=== PATIENT | female | born 1940 | race Caucasian/White ===

== ENCOUNTER 2017-01-05 16:44 | Inpatient (IN) | payer MEDICARE ==
[~2017-01-05 16:44] MED LIST: AMLO5TAB2 PO; ERYTOIN10 EACH EYE; GABA300C5 PO; SIMV40TA PO; TERI14TA PO; XARE15TA PO
[2017-01-05 20:00] VITALS: BP 146/76; PULSE 81; RESP 16; TEMP 97.5; O2SAT 97
[2017-01-05] MEDS ORDERED: DIMETHICONE/OXYBENZONE/PADMIATE LIP BALM 4.25 GM TOPICAL PRN (21:00)
[2017-01-05] MEDS ORDERED: NALOXONE HCL 0.4 MG/ML AMP IV PUSH PRN (21:00)
[2017-01-05] MEDS ORDERED: ACETAMIN 325 MG/BUTALBITAL 50 MG/CAFFEINE 40 MG TAB PO PRN (21:00)
[2017-01-05] MEDS ORDERED: ONDANSETRON HCL 4 MG/2 ML VIAL IV PUSH PRN (21:00)
[2017-01-05] MEDS ORDERED: SODIUM CHLORIDE 0.9% FLUSH 10 ML FLUSH IV FLUSH PRN (21:00)
[2017-01-05] MEDS ORDERED: MAGNESIUM HYDROXIDE SUSP 30 ML CUP PO PRN (21:00)
[2017-01-05] MEDS ORDERED: PILL SPLITTER OTHER PRN (21:45)
[2017-01-05] MEDS: SODIUM CHLOR 0.9% 1000 ML INJ 1,000 ML IV SCH (22:41)
[2017-01-05] MEDS: metroNIDAZOLE 500 MG INJ 100 ML IV SCH (22:42)
[2017-01-05] MEDS: FAMOTIDINE 20 MG TAB PO SCH (22:54)
[2017-01-05] MEDS: SODIUM CHLORIDE 0.9% FLUSH 10 ML FLUSH IV FLUSH SCH (22:54)
[2017-01-05] MEDS: methylPREDNISolone SO SUCC INJ 250 MG in DEXTROSE 5% IN WATER 100ML INJ 100 ML IV SCH ×2 (23:47)
[2017-01-06] VITALS (10 sets, daily range): BP systolic 141–157; BP diastolic 66–79; PULSE 81–94; RESP 16–18; TEMP 97.1–98.5; O2SAT 91–95
[2017-01-06] MEDS: ACETAMINOPHEN/HYDROcodone 325 MG/5 MG TAB PO PRN ×3 (03:30→22:13)
[2017-01-06] MEDS: methylPREDNISolone SO SUCC INJ 250 MG in DEXTROSE 5% IN WATER 100ML INJ 100 ML IV SCH ×6 (05:23→18:04)
[2017-01-06] MEDS: metroNIDAZOLE 500 MG INJ 100 ML IV SCH ×3 (06:29→22:12)
[2017-01-06] MEDS ORDERED: RIVAROXABAN 15 MG TAB PO SCH (09:00)
[2017-01-06] MEDS: FAMOTIDINE 20 MG TAB PO SCH ×2 (09:39→22:14)
[2017-01-06] MEDS: ASPIRIN 81 MG CHEW TAB CHEW SCH (09:39)
[2017-01-06] MEDS: FLUCONAZOLE 100 MG TAB PO SCH (09:40)
[2017-01-06] MEDS: SODIUM CHLORIDE 0.9% FLUSH 10 ML FLUSH IV FLUSH SCH (09:40)
[2017-01-06] MEDS: SODIUM CHLOR 0.9% 1000 ML INJ 1,000 ML IV SCH ×2 (10:00→12:15)
--- NOTE | 2017-01-06 10:05 | HHI.PR ---
Review/Management Diagnosis prvious left SQL ARCHITECT and MCA and right mca cva. Now with what is a new right posterior parietal-occipital cva Multiple sclerosis Plan close neurochecks in hospital b/o recent recurrent cva. continue solumedrol for MS recheck echocardiogram to r/o embolic source. Diagnosis/Plan: Subjective Subjective Comments Pt now transferred to medical floor due to recent CT showing an additional cva in the right posterior parieto-occitpital area. Had prior cva in left SQL ARCHITECT distribution and left parietal as well as a small infarct right parietal. Had a sudden change in MS on Saturday and follow up CT done yesterday of brain indicated a new infarct in right posterior parieto-occipital area. SHe also has MS and is now on iv solumedrol for possible MS exacerbation as well, as her has been reporting progressive decline in strength and mobility over the past month or so.ALso continues on xarelto. ASA was added Saturday for new CVA. Active Medications Current Medications Medications (Trade) Dose Ordered Sig/Marilin Route Start Time Stop Time Status Last Admin (NS Flush) 2 ml UNSCH PRN IV FLUSH 01/05/17 21:00 (NS Flush) 2 ml BID IV FLUSH 01/05/17 21:00 01/06/17 09:40 (Narcan Inj) 0.4 mg UNSCH PRN IV PUSH 01/05/17 21:00 Levofloxacin/ Dextrose 150 ml @ 100 mls/hr Q24H IV 01/06/17 15:00 Sodium Chloride 1,000 ml @ 100 mls/hr Q10H IV 01/05/17 21:00 01/05/17 22:41 Metronidazole 100 ml @ 100 mls/hr Q8H IV 01/05/17 22:00 01/06/17 06:29 (Odd 5-325 Mg) 1 tab Q6H PRN PO 01/05/17 21:00 01/06/17 09:56 Methylprednisolone Sodium Succinate 250 mg/Dextrose 100 ml @ 104 mls/hr Q6HR IV 01/05/17 23:00 01/06/17 05:23 (Milk Of Magnesia Liq) 30 ml DAILY PRN PO 01/05/17 21:00 (Diflucan) 150 mg DAILY PO 01/06/17 09:00 01/06/17 09:40 (Fioricet 325-50-40) 1 tab Q8H PRN PO 01/05/17 21:00 (Blistex Lip [place]) 1 applic UNSCH PRN TOPICAL 01/05/17 21:00 (Xarelto) 15 mg DAILY PO 01/06/17 09:00 01/06/17 09:40 (Aspirin Chew) 81 mg DAILY CHEW 01/06/17 09:00 01/06/17 09:39 (Pepcid) 20 mg BID PO 01/05/17 21:00 01/06/17 09:39 (Zofran Inj) 4 mg Q6HR PRN IV PUSH 01/05/17 21:00 (Pill Splitter) 1 ea UNSCH PRN OTHER 01/05/17 21:45 (Flu (Quadrivalent) Vaccine Inj) 0.5 ml ONCE ONCE IM 01/07/17 10:00 01/07/17 10:01 Allergies Allergies Coded Allergies Sulfa (Sulfonamide Antibiotics) (Verified Allergy, Intermediate, 12/28/16) Penicillins (Verified Allergy, Unknown, 12/28/16) Exam I&O / VS 01/06/17 01/06/17 01/07/17 15:00 23:00 07:00 Intake Total 100 ml Balance 100 ml Intake IV Total 100 ml Vital Signs Date Time Temp Pulse Resp B/P (MAP) Pulse Ox O2 Delivery O2 Flow Rate FiO2 01/06/17 08:48 97.1 84 16 145/73 (97) 94 01/06/17 05:00 98.5 82 18 141/66 (91) 95 01/06/17 00:16 98.0 89 18 143/79 (100) 95 01/06/17 00:14 98.0 89 18 143/79 (100) 95 01/05/17 20:00 97.5 81 16 146/76 (99) 97 Respiratory: Lungs CTA, Non-labored respirations Cardiology: Normal rate, Regular Rhythm Musculoskeletal: ROM, Swelling Exam Comments More alert today, follows commands. PERRL EOM intact Right umn cn 7 palsey 3/5 RUE. 4/5 Philip Fagan PhD Jan 06, 2017 10:05
[2017-01-06] MEDS ORDERED: GLUCAGON 1 MG/ML VIAL OTHER PRN (10:15)
[2017-01-06] MEDS ORDERED: SODIUM CHLORIDE 0.9% FLUSH 5 ML FLUSH IV FLUSH PRN (10:15)
[2017-01-06] MEDS ORDERED: DEXTROSE 50% IN WATER 50 ML VIAL(D50) IV PUSH PRN (10:15)
[2017-01-06] MEDS ORDERED: BISACODYL 10 MG SUPP RECTAL PRN (12:00)
[2017-01-06] MEDS: INSULIN ASPART SUPPLEMENTAL SCALE SQ SCH ×3 (12:00→21:00)
--- NOTE | 2017-01-06 16:04 | HHI.HP ---
HPI Service [facility] Primary Care Physician Unknown Admission Diagnosis Diagnoses: Chief Complaint: altered mental status Travel History International Travel<30 Days: No Contact w/Intl Traveler <30 Da: No Traveled to Known Affected Are: No History of Present Illness This is a 76-year-old female with past medical history of multiple sclerosis, hyperlipidemia, DVT and PE on Xarelto, CVA. The patient has expressive aphasia as a result of her CVA so most of the history is obtained from medical records and with help of the family which is at bedside. As per medical records the patient has had multiple sclerosis diagnosed in 2013 and has been followed by Dr. Kaitlin Fountain, history of bilateral lower extremity DVT and PE in September 2016 with workup at the floor the hospital in normal speech and placed on Xarelto long- term. Patient is very lethargic and the history is obtained from previous medical records. The patient was admitted for the hospital in [place] on 12/21/16 with sudden onset of slurred speech and right-sided facial droop. A CT of the head was unremarkable, the patient was not given TPA because she was outside of the window. The patient was evaluated by neurology, Dr. Philip Fountain. MRI was obtained and it showed a 3 cm triangular area of abnormal signal and restricted flow involving the left temporal lobe, sylvian fissure into the basal ganglia consistent with acute infarct of the left MCA distribution. Also noted were multiple punctate foci of restricted flow within the left parietal, left occipital cortex and left frontal lobe suggesting a small acute infarcts. Additional studies at the time included a CT of the head and neck and TTE which were negative for embolic source. There is also reported one episode of lethargy with repeat CT brain showing evolution of the left MCA territory ischemia/infarction without hemorrhagic conversion. The patient was then started on physical and occupational therapy as well as speech therapy and was noted to have right hemiparesis and expressive aphasia with dysarthria and dysphagia. As per RN the patient had a stroke alert while in rehabilitation at the time was evaluated by neurologist and an MRI was obtained which showed bilateral acute to subacute infarcts with the largest being in the left posterior parietal/occipital region. No evidence of hemorrhage. The patient was noted yesterday to be more lethargic when a couple days back as per reported when necessary she was more interactive with staff. Family states that the patient was very confused as she could not say her name. As per medical staff at [facility] the patient had been moaning and groaning all night. An abdominal x-ray was obtained secondary to abdominal pain and it showed barium identified within a diverticuli which could be secondary to diverticulitis. As a result of the patient being lethargic head CT was ordered which showed a new acute to subacute right posterior parietal/ occipital mild convexity infarct, reported new since 01/03/17. It showed evolving infarct involving the medial left occipital mild complexities, left mid parietal high convexities and mid right parietal high convexities. No hemorrhage, hydrocephalus or herniation were observed. Review of Systems Limited and unable to be obtained since due to patient's expressive aphasia and inability to answer questions correctly. Past Family Social History Past Medical History 1. Multiple sclerosis on Aubagio. 2. 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 3. Hyperlipidemia. Past Surgical History History of traumatic laceration of of the nose 3 years with plastic surgery. Reported Medications Reported Meds & Active Scripts Active Reported Aubagio (Teriflunomide) 14 Mg Tab 14 Mg PO DAILY Xarelto (Rivaroxaban) 15 Mg Tab 15 Mg PO DAILY Allergies: Coded Allergies: Sulfa (Sulfonamide Antibiotics) (Verified Allergy, Intermediate, 12/28/16) hives Penicillins (Verified Allergy, Unknown, 12/28/16) childhood reaction unknown Active Ordered Medications Current Medications Medications (Trade) Dose Ordered Sig/Marilin Route Start Time Stop Time Status Last Admin (Narcan Inj) 0.4 mg UNSCH PRN IV PUSH 01/05/17 21:00 Levofloxacin/ Dextrose 150 ml @ 100 mls/hr Q24H IV 01/06/17 15:00 01/06/17 16:23 Metronidazole 100 ml @ 100 mls/hr Q8H IV 01/05/17 22:00 01/06/17 14:37 Methylprednisolone Sodium Succinate 250 mg/Dextrose 100 ml @ 104 mls/hr Q6HR IV 01/05/17 23:00 01/06/17 18:04 (Milk Of Magnesia Liq) 30 ml DAILY PRN PO 01/05/17 21:00 (Diflucan) 150 mg DAILY PO 01/06/17 09:00 01/06/17 09:40 (Fioricet 325-50-40) 1 tab Q8H PRN PO 01/05/17 21:00 (Blistex Lip [place]) 1 applic UNSCH PRN TOPICAL 01/05/17 21:00 (Xarelto) 15 mg DAILY PO 01/06/17 09:00 01/06/17 09:40 (Aspirin Chew) 81 mg DAILY CHEW 01/06/17 09:00 01/06/17 09:39 (Pepcid) 20 mg BID PO 01/05/17 21:00 01/06/17 09:39 (Zofran Inj) 4 mg Q6HR PRN IV PUSH 01/05/17 21:00 (Pill Splitter) 1 ea UNSCH PRN OTHER 01/05/17 21:45 (Flu (Quadrivalent) Vaccine Inj) 0.5 ml ONCE ONCE IM 01/07/17 10:00 01/07/17 10:01 (NS Flush) 2 ml BID IV FLUSH 01/06/17 21:00 (NS Flush) 2 ml UNSCH PRN IV FLUSH 01/06/17 10:15 Sodium Chloride 1,000 ml @ 70 mls/hr [id number] IV 01/06/17 10:00 (NovoLOG SUPPLEMENTAL SCALE) 1 ACHS SQ 01/06/17 12:00 01/06/17 18:16 (D50w (Vial) Inj) 50 ml UNSCH PRN IV PUSH 01/06/17 10:15 (Glucagon Inj) 1 mg UNSCH PRN OTHER 01/06/17 10:15 (Dulcolax Supp) 10 mg DAILY PRN RECTAL 01/06/17 12:00 ([place] 5-325 Mg) 1 tab Q4H PRN PO 01/06/17 17:30 Family History Mother at age 45 from colon cancer. Patient sister has multiple sclerosis as well. Social History The patient currently does not smoke, however she did and quit in 1971. The patient drinks alcohol occasionally. No illicit drug use reported by or son. The patient is , lives with her and 2 children. Physical Exam Vital Signs Vital Signs Date Time Temp Pulse Resp B/P (MAP) Pulse Ox O2 Delivery O2 Flow Rate FiO2 01/06/17 12:14 98.3 83 16 143/74 (97) 95 01/06/17 11:00 18 01/06/17 10:30 94 1.00 01/06/17 08:48 97.1 84 16 145/73 (97) 94 01/06/17 05:00 98.5 82 18 141/66 (91) 95 01/06/17 00:16 98.0 89 18 143/79 (100) 95 01/06/17 00:14 98.0 89 18 143/79 (100) 95 01/05/17 20:00 97.5 81 16 146/76 (99) 97 Physical Exam GENERAL: This is a well-nourished, well-developed patient, in no apparent distress. SKIN: No rashes, ecchymoses or lesions. Cool and dry. HEAD: Atraumatic. Normocephalic. No temporal or scalp tenderness. EYES: Pupils equal round and reactive. Extraocular motions intact. No scleral icterus. No injection or drainage. ENT: Nose without bleeding, purulent drainage or septal hematoma. Throat without erythema, tonsillar hypertrophy or exudate. Uvula midline. Airway patent. NECK: Trachea midline. No JVD or lymphadenopathy. Supple, nontender, no meningeal signs. CARDIOVASCULAR: Regular rate and rhythm without murmurs, gallops, or rubs. RESPIRATORY: Clear to auscultation. Breath sounds equal bilaterally. No wheezes , rales, or rhonchi. GASTROINTESTINAL: Abdomen soft, non-tender, nondistended. No hepato-splenomegaly , or palpable masses. No guarding. MUSCULOSKELETAL: Extremities without clubbing, cyanosis, or edema. No joint tenderness, effusion, or edema noted. No calf tenderness. Negative Homans sign bilaterally. NEUROLOGICAL: Awake and alert. Cranial nerves II through XII intact. Motor and sensory grossly within normal limits. Five out of 5 muscle strength in all muscle groups. Normal speech. Laboratory Laboratory Tests Test 01/06/17 12:[address] reviewed by me obtained on 01/05/17 showed acute to subacute right posterior parietal/occipital mid convexity infarct, new since 01/03/17 exam. It will be infarct involving the medial left occipital convexities, left mid parietal convexities, and right parietal high convexities. No hemorrhage, hydrocephalus or herniation was observed or described. 2. Abdomen and pelvic CT showed sigmoid and scattered colonic diverticulosis without definite evidence for diverticulitis. 6 mm nonobstructive calcified calculus in the left renal collecting system. No evidence for obstructive uropathy at this time. Minimal by basilar atelectasis. 3. Findings consistent with pneumonia or aspiration involving the left upper lobe and superior segment of the left lower lobe with nearly masslike focal airspace consolidation in the left lower lobe containing air bronchograms to take 42.1 cm. Caprini VTE Risk Assessment Caprini VTE Risk Assessment: Mod/High Risk (score >= 2) Caprini Risk Assessment Model Point Value = 1 Point Value = 2 Point Value = 3 Point Value = 5 Age 41-60 Minor surgery BMI > 25 kg/m2 Swollen legs Varicose veins or History of unexplained or recurrent spontaneous Oral contraceptives or hormone replacement Sepsis (< 1 month) Serious lung disease, including pneumonia (< 1 month) Abnormal pulmonary function Acute myocardial infarction Congestive heart failure (< 1 month) History of inflammatory bowel disease Medical patient at bed rest Age 61-74 Arthroscopic surgery Major open surgery (> 45 min) Laparoscopic surgery (> 45 min) Malignancy Confined to bed (> 72 hours) Immobilizing plaster cast Central venous access Age >= 75 History of VTE Family history of VTE Factor V Leiden Prothrombin [id number] Lupus anticoagulant Anticardiolipin antibodies Elevated serum homocysteine Heparin-induced thrombocytopenia Other congenital or acquired thrombophilia Stroke (< 1 month) Elective arthroplasty Hip, pelvis, or leg fracture Acute spinal cord injury (< 1 month) Prophylaxis Regimen Total Risk Factor Score Risk Level Prophylaxis Regimen 0-1 Low Early ambulation 2 Moderate Order ONE of the following: *Sequential Compression Device (SCD) *Heparin 5000 units SQ BID 3-4 Higher Order ONE of the following medications: *Heparin 5000 units SQ TID *Enoxaparin/Lovenox 40 mg SQ daily (WT < 150 kg, CrCl > 30 mL/min) *Enoxaparin/Lovenox 30 mg SQ daily (WT < 150 kg, CrCl > 10-29 mL/min) *Enoxaparin/Lovenox 30 mg SQ BID (WT < 150 kg, CrCl > 30 mL/min) AND/OR *Sequential Compression Device (SCD) 5 or more Highest Order ONE of the following medications: *Heparin 5000 units SQ TID (Preferred with Epidurals) *Enoxaparin/Lovenox 40 mg SQ daily (WT < 150 kg, CrCl > 30 mL/min) *Enoxaparin/Lovenox 30 mg SQ daily (WT < 150 kg, CrCl > 10-29 mL/min) *Enoxaparin/Lovenox 30 mg SQ BID (WT < 150 kg, CrCl > 30 mL/min) AND *Sequential Compression Device (SCD) Assessment and Plan Problem List: (1) Encephalopathy acute ICD Code: G93.40 - Encephalopathy, unspecified Plan: Encephalopathy likely multifactorial secondary to new CVA as mentioned above in CT scan and secondary to UTI and aspiration pneumonia. CT of the head showed new left posterior CVA. Neurology consulted on following patient. Patient currently on aspirin and on Xarelto. I will hold Xarelto and place the patient on IV heparin drip given that the patient has hematuria. (2) CVA (cerebral vascular accident) ICD Code: I63.9 - Cerebral infarction, unspecified Plan: As above I will order a brain MRI and a CTA of the neck. Given that the patient has had a repeat stroke on anticoagulation I will consult hematology. I will also check for sedimentation rate, CRP, JAMAIR and ANCA to rule out vasculitis. (3) Pneumonia ICD Code: J18.9 - Pneumonia, unspecified organism Plan: Give the chest as mentioned above shows a right upper lobe infiltrate and superior segment of the left lower lobe with nearly masslike focal airspace consolidation in the left lower lobe containing air bronchograms measuring 2.4 2.1 cm. I will consult pulmonary for further recommendations. (4) Hx pulmonary embolism ICD Code: Z86.711 - Personal history of pulmonary embolism Status: Chronic Plan: Patient has history of bilateral lower extremity DVT and PE on Xarelto. (5) UTI (urinary tract infection) ICD Code: N39.0 - Urinary tract infection, site not specified Plan: Continue IV Levaquin. Patient now has hematuria. I will consult urology. Monitor hemoglobin if it drops then heparin will need to be placed on hold. Urine cultures growing gram-negative rods. HEENT IV Levaquin. (6) Expressive aphasia ICD Code: R47.01 - Aphasia Status: Acute Plan: Speech therapy consultation. (7) Dysphagia ICD Code: R13.10 - Dysphagia, unspecified Status: Acute Plan: Speech therapy recommended a pured diet with nectar consistency thickened liquids. (8) Multiple sclerosis ICD Code: G35 - Multiple sclerosis Status: Chronic Plan: Currently being treated with Solu-Medrol 250 mg IV every 6 hours. (9) HTN (hypertension) ICD Code: I10 - Essential (primary) hypertension Plan: Permissive hypertension for now. Hold antihypertensive medications. The patient previously on amlodipine. (10) Hyperglycemia ICD Code: R73.9 - Hyperglycemia, unspecified Plan: Likely steroid-induced. I will place the patient and SSI with insulin NovoLog and monitor Accu-Cheks. (11) Hematuria ICD Code: R31.9 - Hematuria, unspecified Plan: I will discontinue Xarelto and start the patient on IV heparin drip without bolus. Monitor hemoglobin every 6 hours and if it drops then consideration of discontinuation of heparin drip should be discussed. I discussed this in detail with the family since stopping anticoagulation could but the patient [place] records for further CVAs. (12) Elevated troponin ICD Code: R74.8 - Abnormal levels of other serum enzymes Plan: Patient's troponin is elevated 0.06, 0.07, I will check an EKG and consult cardiology. Echocardiogram pending. Assessment and Plan And Sherita famotidine for GI prophylaxis. Physician Certification 2 Midnight Certification Type: Admission for Inpatient Services Order for Inpatient Services The services are ordered in accordance with Medicare regulations or non- Medicare payer requirements, as applicable. In the case of services not specified as inpatient-only, they are appropriately provided as inpatient services in accordance with the 2-midnight benchmark. Estimated LOS (days): 2 days is the estimated time the patient will need to remain in the hospital, assuming treatment plan goals are met and no additional complications. Post-Hospital Plan: Inpatient Rehab Problem Qualifiers (1) CVA (cerebral vascular accident): Qualified Codes: I63.9 - Cerebral infarction, unspecified (2) HTN (hypertension): Qualified Codes: I10 - Essential (primary) hypertension Shon Bernal MD Jan 06, 2017 16:04
[2017-01-06] MEDS: LEVOFLOXACIN 750 MG PREMIX INJ 150 ML IV SCH (16:23)
[2017-01-06] MEDS ORDERED: IOHEXOL 350 MG/ML 10 ML VIAL (for RAD DIAG) IVCONTRAST ONE (19:17)
--- NOTE | 2017-01-06 19:37 | RADRPT ---
EXAM DATE/TIME: 01/06/2017 18:49 [facility] COMPARISON: CT BRAIN W/O CONTRAST, January 05, 2017, 13:43. INDICATIONS : CVA. MEDICAL HISTORY : Stroke Multiple sclerosis. SURGICAL HISTORY : Rhinoplasty. ENCOUNTER: Initial ACUITY: 1 day PAIN SCORE: 0/10 LOCATION: cranial TECHNIQUE: Multiplanar, multisequence MRI of the brain was performed without contrast. FINDINGS: SUPRATENTORIAL: Multifocal acute and subacute infarcts are present. The infarct with the greatest degree of restrict ed diffusion is located in the watershed zone right MCA/CARE ASSOCIATE. Other areas of intermediate restricted diffusion involves the left occipital lobe extending into the watershed zone and along the tentorium, left parietal lobe supra sylvian, and right posterior insula. On the T1 sagittal images, there is a thin ribbon T1 shortening in the cortex of the left parieto-occipital and left suprasylvian infarcts suggesting some subacute blood products.. The ventricles were normal in size. No extra-axial fluid or blood. POSTERIOR FOSSA: The cerebellum and brainstem are intact. The 4th ventricle is midline. The cerebellopontine angle is unremarkable. The cerebellar tonsils are normal in position.. EXTRACRANIAL: The visualized portions of the orbits and paranasal sinuses are unremarkable. CONCLUSION: 1. Acute nonhemorrhagic infarction in the right MCA CARE ASSOCIATE watershed zone. 2. Subacute infarctions with possible subacute blood products in the left occipital and left suprasyl vian parietal region. 3. Subacute infarction in the right posterior insula without evidence of blood products. David Jordan MD on January 06, 2017 at 19:23 Board Certified Radiologist. This report was verified electronically.
--- NOTE | 2017-01-06 20:08 | RADRPT ---
EXAM DATE/TIME: 01/06/2017 19:10 [facility] COMPARISON: No previous studies available for comparison. INDICATIONS : CVA. Evaluate for embolism. IV CONTRAST: 66 cc Omnipaque 350 (iohexol) IV RADIATION DOSE: 26.58 CTDIvol (mGy) MEDICAL HISTORY : Pulmonary embolism. CVA. SURGICAL HISTORY : Rhinoplasty ENCOUNTER: Initial ACUITY: 1 day PAIN SCALE: 0/10 LOCATION: neck Elevated flow velocities and ICA/CCA ratios have been found to correlate with increased degrees of vessel stenosis, calculated as percentage of diameter relative to a normal segment of distal ICA/CCA. TECHNIQUE: Volumetric scanning was performed using a multirow detector CT scanner. The data was post processed with a variety of visualization algorithms including full-volume maximum intensity projection, multip lanar sliding thin-slab reformation, curved-planar reformation, and surface-rendering techniques. Us ing automated exposure control and adjustment of the mA and/or kV according to patient size, radiatio n dose was kept as low as reasonably achievable to obtain optimal diagnostic quality images. DICOM f ormat image data is available electronically for review and comparison. FINDINGS: AORTIC ARCH: There is a three-vessel origin of the great vessels from the aorta. No evidence of ostial narrowing. RIGHT CAROTID: The common carotid artery is intact. The carotid bulb has a normal configuration without ulceration o r narrowing. The internal carotid artery lumen is smooth without stenosis. The external carotid octavio ry is intact. LEFT CAROTID: The common carotid artery is intact. The carotid bulb has a normal configuration without ulceration or narrowing. The internal carotid artery lumen is smooth without stenosis. The external carotid ar eliza is intact. VERTEBRALS: The vertebral arteries have a symmetric diameter. No stenotic lesions are seen. CONCLUSION: Normal CTA carotids. David Jordan MD on January 06, 2017 at 20:04 Board Certified Radiologist. This report was verified electronically.
[2017-01-06] MEDS ORDERED: HEPARIN-D5W 25,000 U/250 ML 250 ML IV PRN (21:00)
[2017-01-06] MEDS: SODIUM CHLORIDE 0.9% FLUSH 5 ML FLUSH IV FLUSH SCH (21:00)
[2017-01-06 21:48] LABS: AUTOMATED NEUTROPHIL # 11.3 TH/MM3 (1.8-7.7); BASOPHIL % 0.1 % (0.0-2.0); HEMO FLAGS DIFF FINAL; LYMPH % 2.5 % (9.0-44.0); LYMPHOCYTE # 0.3 TH/MM3 (1.0-4.8); MEAN CELL VOLUME 92.8 FL (80.0-100.0); MEAN CORPUSCULAR HEMOGLOBIN 30.8 PG (27.0-34.0); MEAN CORPUSCULAR HGB CONC 33.2 % (32.0-36.0); NEUT % 93.4 % (16.0-70.0); PLATELET COUNT 214 TH/MM3 (150-450); RED BLOOD COUNT 3.66 MIL/MM3 (4.00-5.30); RED CELL DISTRIBUTION WIDTH 14.5 % (11.6-17.2); WHITE BLOOD COUNT 12.1 TH/MM3 (4.0-11.0)
[2017-01-06 21:58] LABS: ANION GAP 9 MEQ/L (5-15); AST (GOT) 52 U/L (15-37); BICARBONATE 24.2 MEQ/L (21.0-32.0); BLOOD UREA NITROGEN 32 MG/DL (7-18); CHLORIDE 110 MEQ/L (98-107); GLOMERULAR FILTRATION RATE 129 ML/MIN (>89); MAGNESIUM 2.2 MG/DL (1.5-2.5); SODIUM (NA) 143 MEQ/L (136-145)
[2017-01-06 21:59] LABS: ALT (GPT) 45 U/L (10-53); APTT (PATIENT) 27.6 SEC (24.3-30.1); INTERNATIONAL NORMALIZED RATIO 2.4 RATIO; PROTHROMBIN TIME - PATIENT 27.5 SEC (9.8-11.6)
[2017-01-06 22:01] LABS: ALKALINE PHOSPHATASE 125 U/L (45-117); TOTAL BILIRUBIN ADULT 0.7 MG/DL (0.2-1.0)
[2017-01-06 22:10] LABS: WESTERGREN SEDIMENTATION RATE 5 mm/hr (0-30)
[2017-01-07] VITALS (10 sets, daily range): BP systolic 147–171; BP diastolic 71–96; PULSE 81–99; RESP 16–18; TEMP 97.2–97.8; O2SAT 89–95
[2017-01-07] MEDS: methylPREDNISolone SO SUCC INJ 250 MG in DEXTROSE 5% IN WATER 100ML INJ 100 ML IV SCH ×10 (00:39→23:22)
[2017-01-07] MEDS: SODIUM CHLOR 0.9% 1000 ML INJ 1,000 ML IV SCH ×2 (00:40→13:12)
[2017-01-07 04:35] LABS: HDL CHOLESTEROL 61.8 MG/DL (40.0-60.0)
[2017-01-07 04:46] LABS: APTT (PATIENT) 27.4 SEC (24.3-30.1)
[2017-01-07] MEDS: metroNIDAZOLE 500 MG INJ 100 ML IV SCH ×3 (05:12→21:39)
[2017-01-07] MEDS: INSULIN ASPART SUPPLEMENTAL SCALE SQ SCH ×4 (08:00→21:00)
[2017-01-07] MEDS: SODIUM CHLORIDE 0.9% FLUSH 5 ML FLUSH IV FLUSH SCH ×2 (09:00→21:00)
[2017-01-07 09:15] LABS: HEMATOCRIT 35.3 % (35.0-46.0); MEAN CELL VOLUME 92.7 FL (80.0-100.0); MEAN CORPUSCULAR HEMOGLOBIN 30.9 PG (27.0-34.0); MEAN CORPUSCULAR HGB CONC 33.3 % (32.0-36.0); PLATELET COUNT 211 TH/MM3 (150-450); RED BLOOD COUNT 3.81 MIL/MM3 (4.00-5.30); REVIEW FLAG FINAL; WHITE BLOOD COUNT 12.5 TH/MM3 (4.0-11.0)
[2017-01-07 09:39] LABS: BICARBONATE 23.2 MEQ/L (21.0-32.0)
[2017-01-07 09:43] LABS: POTASSIUM 2.9 MEQ/L (3.5-5.1)
[2017-01-07] MEDS: INFLUENZA VIRUS VACCINE (QUADRIVALENT) 0.5 ML SYR IM ONE (10:00)
[2017-01-07] MEDS ORDERED: POTASSIUM PHOSPHATE INJ 15 MMOL in SODIUM CHLORIDE 0.9% INJ 150 ML IV ONE (10:00)
--- NOTE | 2017-01-07 10:06 | RADRPT ---
EXAM DATE/TIME: 01/07/2017 09:43 [facility] COMPARISON: CT BRAIN W/O CONTRAST, January 05, 2017, 13:43. INDICATIONS : Abnormal MRI. Evaluate for hemorrhage. RADIATION DOSE: 56.35 CTDIvol (mGy) MEDICAL HISTORY : Stroke. pulmonary embolism SURGICAL HISTORY : None. ENCOUNTER: Subsequent ACUITY: 1 day PAIN SCALE: Non-responsive LOCATION: Bilateral head TECHNIQUE: Multiple contiguous axial images were obtained of the head. Using automated exposure control and adj ustment of the mA and/or kV according to patient size, radiation dose was kept as low as reasonably a chievable to obtain optimal diagnostic quality images. DICOM format image data is available electro nically for review and comparison. FINDINGS: CEREBRUM: Multiple evolving infarcts in the left medial occipital mid convexity is, mid parietal high convexiti es, mid right parietal high convexities, and right posterior parietal/occipital mid convexities. No e vidence for significant intra-axial or extra-axial intercurrent hemorrhage. The ventricles are midlin e and stable in size. POSTERIOR FOSSA: The cerebellum and brainstem are intact. The 4th ventricle is midline. The cerebellopontine angle i s unremarkable. EXTRACRANIAL: The visualized portion of the orbits is intact. SKULL: The calvaria is intact. No evidence of skull fracture. CONCLUSION: 1. Multiple evolving bilateral cerebral infarcts involving both anterior and posterior circulation te rritories, as above. Differential considerations include embolism or vasculitis. 2. No significant intercurrent hemorrhage, herniation, or hydrocephalus. German Bloom MD on January 07, 2017 at 9:59 Board Certified Radiologist. This report was verified electronically.
[2017-01-07] MEDS: FAMOTIDINE 20 MG TAB PO SCH ×2 (10:10→21:38)
[2017-01-07] MEDS: FLUCONAZOLE 100 MG TAB PO SCH (10:10)
[2017-01-07] MEDS: ASPIRIN 81 MG CHEW TAB CHEW SCH (10:10)
[2017-01-07] MEDS: FLUCONAZOLE 100 MG PREMIX BAG 50 ML IV SCH (10:18)
[2017-01-07] MEDS: POTASSIUM CHLOR 20 MEQ PREMIX 100 ML IV SCH ×2 (10:21→11:56)
--- NOTE | 2017-01-07 10:46 | PD.CONS ---
HPI Service Urology Consult Requested By Dr. Silva Reason for Consult Gross hematuria Primary Care Physician Unknown Diagnosis: (1) Encephalopathy acute ICD Code: G93.40 - Encephalopathy, unspecified (2) CVA (cerebral vascular accident) ICD Code: I63.9 - Cerebral infarction, unspecified (3) Pneumonia ICD Code: J18.9 - Pneumonia, unspecified organism (4) Hx pulmonary embolism ICD Code: Z86.711 - Personal history of pulmonary embolism (5) UTI (urinary tract infection) ICD Code: N39.0 - Urinary tract infection, site not specified (6) Expressive aphasia ICD Code: R47.01 - Aphasia (7) Dysphagia ICD Code: R13.10 - Dysphagia, unspecified (8) Multiple sclerosis ICD Code: G35 - Multiple sclerosis (9) HTN (hypertension) ICD Code: I10 - Essential (primary) hypertension (10) Hyperglycemia ICD Code: R73.9 - Hyperglycemia, unspecified (11) Hematuria ICD Code: R31.9 - Hematuria, unspecified (12) Elevated troponin ICD Code: R74.8 - Abnormal levels of other serum enzymes History of Present Illness 76-year-old female with multiple medical problems including a history of DVT on Xarelto who was admitted for further workup and management of altered mental status believed secondary to a CVA. A Beckman catheter was placed and the patient was noted to have gross hematuria. The Xarelto was held and the patient started on a heparin drip. A urology consult was placed to address the hematuria findings. At the time of consultation the patient's hematuria was almost resolved. The urine itself was very light red in appearance without clots. A CT scan of the abdomen and pelvis with IV contrast was performed on January 05 of this year which demonstrated symmetrical enhancement of both kidneys. Also noted were multiple small cystic lesions involving the inferior pole of the left kidney as well as a 6 mm nonobstructing left renal calculus. There was no evidence of mass lesions or hydronephrosis. Evaluation of the bladder failed to demonstrate any wall thickening or a mass. Review of Systems ROS Limitations: Speech Impaired Except as stated in HPI: all other systems reviewed are Neg Past Family Social History Past Medical History Multiple sclerosis Hyperlipidemia DVT CVA Past Surgical History Surgical repair of traumatic nose laceration Reported Medications Refer to EMR Allergies: Coded Allergies: Sulfa (Sulfonamide Antibiotics) (Verified Allergy, Intermediate, 12/28/16) hives Penicillins (Verified Allergy, Unknown, 12/28/16) childhood reaction unknown Active Ordered Medications Refer to EMR Family History Cystoscopy with history of multiple sclerosis Mother with history colon cancer Social History Former smoker who quit in 1971 Occasional alcohol use No history of venous drug abuse Physical Exam Vital Signs Date Time Temp Pulse Resp B/P (MAP) Pulse Ox O2 Delivery O2 Flow Rate FiO2 01/07/17 09:33 92 01/07/17 08:52 97.3 96 16 171/84 (113) 92 01/07/17 06:00 97.2 92 18 159/86 (110) 95 01/07/17 00:00 97.8 81 18 147/71 (96) 95 01/06/17 23:00 81 01/06/17 22:00 81 01/06/17 20:00 98.1 94 18 157/79 (105) 93 01/06/17 16:35 97.1 89 16 152/78 (102) 91 01/06/17 12:14 98.3 83 16 143/74 (97) 95 01/06/17 11:00 18 Physical Exam GENERAL: This is a well-nourished, well-developed patient, in no apparent distress. SKIN: No rashes, ecchymoses or lesions. Cool and dry. HEAD: Atraumatic. Normocephalic. No temporal or scalp tenderness. EYES: Pupils equal round and reactive. Extraocular motions intact. No scleral icterus. No injection or drainage. ENT: Nose without bleeding, purulent drainage or septal hematoma. Throat without erythema, tonsillar hypertrophy or exudate. Uvula midline. Airway patent. NECK: Trachea midline. No JVD or lymphadenopathy. Supple, nontender, no meningeal signs. GASTROINTESTINAL: Abdomen soft, non-tender, nondistended. No hepato-splenomegaly , or palpable masses. No guarding. GENITOURINARY: Bladder not distended. Beckman catheter draining blood-tinged urine without clots. MUSCULOSKELETAL: Extremities without clubbing, cyanosis, or edema. No joint tenderness, effusion, or edema noted. No calf tenderness. Negative Homans sign bilaterally. NEUROLOGICAL: Awake and alert. Slow speech. Lab results reviewed: Yes Laboratory Tests Test 01/06/17 12:59 01/06/17 21:12 01/07/17 03:39 01/07/17 08:54 White Blood Count 12.1 Red Blood Count 3.66 Hemoglobin 11.3 Hematocrit 34.0 Mean Corpuscular Volume 92.8 Mean Corpuscular Hemoglobin 30.8 Mean Corpuscular Hemoglobin Concent 33.2 Red Cell Distribution Width 14.5 Platelet Count 214 Mean Platelet Volume 9.3 Neutrophils (%) (Auto) 93.4 Lymphocytes (%) (Auto) 2.5 Monocytes (%) (Auto) 4.0 Eosinophils (%) (Auto) 0.0 Basophils (%) (Auto) 0.1 Neutrophils # (Auto) 11.3 Lymphocytes # (Auto) 0.3 Monocytes # (Auto) 0.5 Eosinophils # (Auto) 0.0 Basophils # (Auto) 0.0 CBC Comment DIFF FINAL Differential Comment Erythrocyte Sedimentation Rate 5 Prothrombin Time 27.5 Prothromb Time International Ratio 2.4 Activated Partial Thromboplast Time 27.6 27.4 Blood Urea Nitrogen 32 34 Creatinine 0.47 0.50 Random Glucose 140 172 Total Protein 5.8 Albumin 3.0 Calcium Level 8.4 8.4 Phosphorus Level 1.5 Magnesium Level 2.2 Alkaline Phosphatase 125 Aspartate Amino Transf (AST/SGOT) 52 Alanine Aminotransferase (ALT/SGPT) 45 Total Bilirubin 0.7 Sodium Level 143 145 Potassium Level 3.0 2.9 Chloride Level 110 112 Carbon Dioxide Level 24.2 23.2 Anion Gap 9 10 Estimat Glomerular Filtration Rate 129 120 C-Reactive Protein LESS THAN 0.29 Triglycerides Level 149 Cholesterol Level 242 LDL Cholesterol 150 HDL Cholesterol 61.8 Cholesterol/HDL Ratio 3.91 Test 01/07/17 08:56 White Blood Count 12.5 Red Blood Count 3.81 Hemoglobin 11.8 Hematocrit 35.3 Mean Corpuscular Volume 92.7 Mean Corpuscular Hemoglobin 30.9 Mean Corpuscular Hemoglobin Concent 33.3 Red Cell Distribution Width 14.0 Platelet Count 211 Mean Platelet Volume 9.8 Result Diagram: 01/07/17 0856 01/07/17 0854 Personally reviewed images: Yes Imaging Last Impressions Neck CTA 01/06/17 0000 Signed Impressions: Service Date/Time: Friday, January 06, 2017 19:10 - CONCLUSION: Normal CTA carotids. David Jordan MD Brain MRI 01/06/17 0000 Signed Impressions: Service Date/Time: Friday, January 06, 2017 18:49 - CONCLUSION: 1. Acute nonhemorrhagic infarction in the right MCA [employer]PER[employer]ING watershed zone. 2. Subacute infarctions with possible subacute blood products in the left occipital and left suprasylvian parietal region. 3. Subacute infarction in the right posterior insula without evidence of blood products. David Jordan MD Assessment and Plan Assessment and Plan Urologic impression: #1 resolving hematuria related to anticoagulation therapy #2 6mm nonobstructing left renal calculus Recommendations: #1 conservative management for the hematuria with indwelling Beckman catheter to gravity drainage. #2 Beckman catheter not to be removed until urine remains clear yellow for at least 24 hours #3 conservative management of the left renal calculus for now, will discuss options at a later date. #4 office follow up within 30 days of hospital discharge for reevaluation. Problem Qualifiers (1) CVA (cerebral vascular accident): Qualified Codes: I63.9 - Cerebral infarction, unspecified (2) HTN (hypertension): Qualified Codes: I10 - Essential (primary) hypertension Pavan Leal MD Jan 07, 2017 10:46
[2017-01-07] MEDS ORDERED: POTASSIUM CHLORIDE 10 MEQ CONTROLLED RELEASE TAB PO ONE (11:30)
[2017-01-07] MEDS ORDERED: POTASSIUM CHLOR 20 MEQ PREMIX 100 ML IV SCH (12:00)
--- NOTE | 2017-01-07 12:40 | HHI.PR ---
Subjective Remarks Daughter and at bedside Patient is more awake and conversant follows commands is asking to drink water denies cp/sob hematuria improving Objective Vitals Vital Signs Date Time Temp Pulse Resp B/P (MAP) Pulse Ox O2 Delivery O2 Flow Rate FiO2 01/07/17 09:33 92 01/07/17 08:52 97.3 96 16 171/84 (113) 92 01/07/17 06:00 97.2 92 18 159/86 (110) 95 01/07/17 00:00 97.8 81 18 147/71 (96) 95 01/06/17 23:00 81 01/06/17 22:00 81 01/06/17 20:00 98.1 94 18 157/79 (105) 93 01/06/17 16:35 97.1 89 16 152/78 (102) 91 I/O 01/06/17 01/06/17 01/06/17 01/07/17 01/07/17 01/07/17 07:00 15:00 23:00 07:00 15:00 23:00 Intake Total 1195 ml 562 ml Output Total 550 ml 400 ml 250 ml 750 ml Balance -550 ml 795 ml 312 ml -750 ml Intake IV Total 1195 ml 562 ml Output Urine Total 550 ml 400 ml 250 ml 750 ml # Bowel Movements 0 Result Diagram: 01/07/17 0856 01/07/17 0854 Imaging Last Impressions Neck CTA 01/06/17 0000 Signed Impressions: Service Date/Time: Friday, January 06, 2017 19:10 - CONCLUSION: Normal CTA carotids. David Jordan MD Brain MRI 01/06/17 0000 Signed Impressions: Service Date/Time: Friday, January 06, 2017 18:49 - CONCLUSION: 1. Acute nonhemorrhagic infarction in the right MCA [employer] OFFICER watershed zone. 2. Subacute infarctions with possible subacute blood products in the left occipital and left suprasylvian parietal region. 3. Subacute infarction in the right posterior insula without evidence of blood products. David Jordan MD Objective Remarks Patient is awake and alert, nonacute distress Seems to have difficulty seeing Lungs are clear Abdomen is soft, nontender nondistended Beckman catheter in place with clearing hematuria. No edema in bilateral lower extremities. More alert today, follows commands. PERRL EOM intact Right umn cn 7 palsey 3/5 RUE. 4/5 LUE Procedures none Medications and IVs Current Medications Medications (Trade) Dose Ordered Sig/Marilin Route Start Time Stop Time Status Last Admin (Narcan Inj) 0.4 mg UNSCH PRN IV PUSH 01/05/17 21:00 Levofloxacin/ Dextrose 150 ml @ 100 mls/hr Q24H IV 01/06/17 15:00 01/06/17 16:23 Metronidazole 100 ml @ 100 mls/hr Q8H IV 01/05/17 22:00 01/07/17 05:12 Methylprednisolone Sodium Succinate 250 mg/Dextrose 100 ml @ 104 mls/hr Q6HR IV 01/05/17 23:00 01/07/17 11:55 (Milk Of Magnesia Liq) 30 ml DAILY PRN PO 01/05/17 21:00 (Diflucan) 150 mg DAILY PO 01/06/17 09:00 01/07/17 10:10 (Fioricet 325-50-40) 1 tab Q8H PRN PO 01/05/17 21:00 (Blistex Lip [place]) 1 applic UNSCH PRN TOPICAL 01/05/17 21:00 (Aspirin Chew) 81 mg DAILY CHEW 01/06/17 09:00 01/07/17 10:10 (Pepcid) 20 mg BID PO 01/05/17 21:00 01/07/17 10:10 (Zofran Inj) 4 mg Q6HR PRN IV PUSH 01/05/17 21:00 (Pill Splitter) 1 ea UNSCH PRN OTHER 01/05/17 21:45 (NS Flush) 2 ml BID IV FLUSH 01/06/17 21:00 01/07/17 09:00 (NS Flush) 2 ml UNSCH PRN IV FLUSH 01/06/17 10:15 Sodium Chloride 1,000 ml @ 70 mls/hr [id number] IV 01/06/17 10:00 01/07/17 00:40 (NovoLOG SUPPLEMENTAL SCALE) 1 ACHS SQ 01/06/17 12:00 01/06/17 18:16 (D50w (Vial) Inj) 50 ml UNSCH PRN IV PUSH 01/06/17 10:15 (Glucagon Inj) 1 mg UNSCH PRN OTHER 10/1/17 10:15 (Dulcolax Supp) 10 mg DAILY PRN RECTAL 01/06/17 12:00 ([place] 5-325 Mg) 1 tab Q4H PRN PO 01/06/17 17:30 01/06/17 22:13 Potassium Chloride 100 ml @ 50 mls/hr Q2H IV 01/07/17 09:00 01/07/17 12:59 01/07/17 11:56 Fluconazole/ Sodium Chloride 50 ml @ 50 mls/hr Q24H IV 01/07/17 09:00 01/07/17 10:18 Potassium Phosphate 15 mmol/ Sodium Chloride 155 ml @ 38.75 mls/ hr ONCE ONCE IV 01/07/17 10:00 01/07/17 13:59 01/07/17 10:18 Potassium Chloride 100 ml @ 50 mls/hr Q2H IV 01/07/17 12:00 01/07/17 15:59 Urinary Catheter: Yes Assessment to: Continue Vascular Central Line Catheter: No A/P Problem List: (1) Encephalopathy acute ICD Code: G93.40 - Encephalopathy, unspecified (2) CVA (cerebral vascular accident) ICD Code: I63.9 - Cerebral infarction, unspecified (3) Pneumonia ICD Code: J18.9 - Pneumonia, unspecified organism (4) Hx pulmonary embolism ICD Code: Z86.711 - Personal history of pulmonary embolism Status: Chronic (5) UTI (urinary tract infection) ICD Code: N39.0 - Urinary tract infection, site not specified (6) Expressive aphasia ICD Code: R47.01 - Aphasia Status: Acute (7) Dysphagia ICD Code: R13.10 - Dysphagia, unspecified Status: Acute (8) Multiple sclerosis ICD Code: G35 - Multiple sclerosis Status: Chronic (9) HTN (hypertension) ICD Code: I10 - Essential (primary) hypertension (10) Hyperglycemia ICD Code: R73.9 - Hyperglycemia, unspecified (11) Hematuria ICD Code: R31.9 - Hematuria, unspecified (12) Elevated troponin ICD Code: R74.8 - Abnormal levels of other serum enzymes Assessment and Plan (1) Encephalopathy acute ICD Code: G93.40 - Encephalopathy, unspecified Plan: Encephalopathy likely multifactorial secondary to new CVA as mentioned above in CT scan and secondary to UTI and aspiration pneumonia. CT of the head showed new left posterior CVA. Neurology consulted on following patient. Patient currently on aspirin and on Xarelto. I will hold Xarelto and place the patient on IV heparin drip given that the patient has hematuria. 01/07 encephalopathy seems to be resolving and much improved. The patient now can have a conversation and follows commands. (2) CVA (cerebral vascular accident) ICD Code: I63.9 - Cerebral infarction, unspecified Plan: As above Given that the patient has had a repeat stroke on anticoagulation I will consult hematology. I will also check for sedimentation rate, CRP, JAMARI and ANCA to rule out vasculitis. 01/07 MRI of the brain as described above shows an acute nonhemorrhagic infarction in the right MCA [employer]ICER watershed zone. It also shows subacute infarctions with possible subacute blood products in the left occipital and left suprasylvian parietal region. Subacute infarction in the right posterior insula without evidence of blood products. CT of the head ordered this morning it does not show any significant intercurrent hemorrhage, herniation or hydrocephalus. Heparin discontinued as per neurology recommendations. Will continue to hold now given hematuria which seems to be improving. Resume anticoagulation as per neurology recommendations and when hematuria resolves. Consult Pt/OT. (3) Pneumonia ICD Code: J18.9 - Pneumonia, unspecified organism Plan: Give the chest as mentioned above shows a right upper lobe infiltrate and superior segment of the left lower lobe with nearly masslike focal airspace consolidation in the left lower lobe containing air bronchograms measuring 2.4 2.1 cm. I will consult pulmonary for further recommendations. 01/07 neurology consultation pending. Continue IV Levaquin and IV Flagyl. (4) Hx pulmonary embolism ICD Code: Z86.711 - Personal history of pulmonary embolism Status: Chronic Plan: Patient has history of bilateral lower extremity DVT and PE initially on Xarelto. However this has been discontinued secondary to hematuria and evidence of possible bladder and MRI which CT does not show. Monitor vital signs and oxygenation. (5) UTI (urinary tract infection) ICD Code: N39.0 - Urinary tract infection, site not specified Plan: Continue IV Levaquin. Patient now has hematuria. I will consult urology. Monitor hemoglobin if it drops then heparin will need to be placed on hold. Urine cultures growing gram-negative rods. HEENT IV Levaquin. 01/07 Jacobo consulted. Recommendations appreciated. Will keep Beckman to drainage until hematuria has completely resolved 24 hours. Urine culture is growing Escherichia coli which is pansensitive. (6) Expressive aphasia ICD Code: R47.01 - Aphasia Status: Acute Plan: Speech therapy consultation. 10 expressive aphasia seems to be improving, patient now able to communicate better. (7) Dysphagia ICD Code: R13.10 - Dysphagia, unspecified Status: Acute Plan: Speech therapy recommended a pured diet with nectar consistency thickened liquids. (8) Multiple sclerosis ICD Code: G35 - Multiple sclerosis Status: Chronic Plan: Currently being treated with Solu-Medrol 250 mg IV every 6 hours. 10 continue management as per neurology. (9) HTN (hypertension) ICD Code: I10 - Essential (primary) hypertension Plan: Permissive hypertension for now. Hold antihypertensive medications. The patient previously on amlodipine. (10) Hyperglycemia ICD Code: R73.9 - Hyperglycemia, unspecified Plan: Likely steroid-induced. Continue SSI with insulin NovoLog and monitor Accu-Cheks. (11) Hematuria ICD Code: R31.9 - Hematuria, unspecified Plan: I will discontinue Xarelto and start the patient on IV heparin drip without bolus. Monitor hemoglobin every 6 hours and if it drops then consideration of discontinuation of heparin drip should be discussed. I discussed this in detail with the family since stopping anticoagulation could but the patient [place] records for further CVAs. 10 hemoglobin stable and hematuria improving. Continue to monitor CBC. (12) Elevated troponin ICD Code: R74.8 - Abnormal levels of other serum enzymes Plan: Patient's troponin is elevated 0.06, 0.07, I will check an EKG and consult cardiology. Echocardiogram pending. Discharge Planning Continue to monitor in the medical floor. Cardiology, pulmonology, hematology consultation pending. The patient still with hematuria. Problem Qualifiers (1) CVA (cerebral vascular accident): Qualified Codes: I63.9 - Cerebral infarction, unspecified (2) HTN (hypertension): Qualified Codes: I10 - Essential (primary) hypertension Shon Bernal MD Jan 07, 2017 12:40
[2017-01-07] MEDS: POTASSIUM PHOSPHATE/SODIUM PHOSPHATE 250 MG TAB PO SCH ×2 (13:12→21:38)
[2017-01-07] MEDS: POTASSIUM CHLORIDE 25 MEQ EFFERVESCENT TAB PO SCH ×2 (13:12→21:38)
--- NOTE | 2017-01-07 13:34 | PD.CONS ---
[facility] Service Rehabilitation Medicine Consult Requested By Philip Fountain M.D. Reason for Consult Comprehensive rehabilitation evaluation. Primary Care Physician Unknown History of Present Illness Mrs. Tanja Curiel is a 76 year old left hand dominant female initially admitted to [facility] in [place] on 12/21/16 with sudden onset of slurred speech and right-sided facial droop. A CT of the head was unremarkable. MRI of the brain showed a 3 cm triangular area of abnormal signal and restricted flow involving the left temporal lobe, sylvian fissure into the basal ganglial consistent with acute infarct of left MCA distribution. Also noted were multiple punctate foci of restricted flow within the left parietal, left occipital cortex and left frontal lobe suggesting small acute infarcts. She was admitted to [facility] for inpatient rehabilitation 12/28/16. Stroke alert was activated 01/03/17. Head CT was unchanged. Follow-up head CT 01/05/17 showed new right posterior parietal occipital. Brain MRI 01/06/17 showed right MCA/PHP PROGRAMMER watershed zone infarct, subacute infarct in the left occipital/suprasylvian area and subacute infarct in the right posterior insula. Patient currently being treated for pneumonia/UTI. Review of Systems ROS Limitations: Clinical Condition, Altered Mental Status Ears, nose, mouth, throat: DENIES: Throat pain Respiratory: DENIES: Shortness of breath Cardiovascular: DENIES: Chest pain Gastrointestinal: DENIES: Abdominal pain Genitourinary: COMPLAINS OF: Urinary incontinence (Beckman in place) Neurologic: COMPLAINS OF: Speech Problems, DENIES: Headache, Localized weakness , Paresthesias Past Family Social History Allergies: Coded Allergies: Sulfa (Sulfonamide Antibiotics) (Verified Allergy, Intermediate, 12/28/16) hives Penicillins (Verified Allergy, Unknown, 12/28/16) childhood reaction unknown Past Medical History Multiple diagnosed 2013 DVT/PE September 2016 Hypertension Current Medications Current Medications Medications (Trade) Dose Ordered Sig/Marilin Route Start Time Stop Time Status Last Admin (Narcan Inj) 0.4 mg UNSCH PRN IV PUSH 01/05/17 21:00 Levofloxacin/ Dextrose 150 ml @ 100 mls/hr Q24H IV 01/06/17 15:00 01/06/17 16:23 Metronidazole 100 ml @ 100 mls/hr Q8H IV 01/05/17 22:00 01/07/17 13:12 Methylprednisolone Sodium Succinate 250 mg/Dextrose 100 ml @ 104 mls/hr Q6HR IV 01/05/17 23:00 01/07/17 11:55 (Milk Of Magnesia Liq) 30 ml DAILY PRN PO 01/05/17 21:00 (Diflucan) 150 mg DAILY PO 01/06/17 09:00 01/07/17 10:10 (Fioricet 325-50-40) 1 tab Q8H PRN PO 01/05/17 21:00 (Blistex Lip [place]) 1 applic UNSCH PRN TOPICAL 01/05/17 21:00 (Aspirin Chew) 81 mg DAILY CHEW 01/06/17 09:00 01/07/17 10:10 (Pepcid) 20 mg BID PO 01/05/17 21:00 01/07/17 10:10 (Zofran Inj) 4 mg Q6HR PRN IV PUSH 01/05/17 21:00 (Pill Splitter) 1 ea UNSCH PRN OTHER 01/05/17 21:45 (NS Flush) 2 ml BID IV FLUSH 01/06/17 21:00 01/07/17 09:00 (NS Flush) 2 ml UNSCH PRN IV FLUSH 01/06/17 10:15 Sodium Chloride 1,000 ml @ 70 mls/hr [id number] IV 01/06/17 10:00 01/07/17 13:12 (NovoLOG SUPPLEMENTAL SCALE) 1 ACHS SQ 01/06/17 12:00 01/06/17 18:16 (D50w (Vial) Inj) 50 ml UNSCH PRN IV PUSH 01/06/17 10:15 (Glucagon Inj) 1 mg UNSCH PRN OTHER 01/06/17 10:15 (Dulcolax Supp) 10 mg DAILY PRN RECTAL 01/06/17 12:00 ([place] 5-325 Mg) 1 tab Q4H PRN PO 01/06/17 17:30 01/06/17 22:13 Fluconazole/ Sodium Chloride 50 ml @ 50 mls/hr Q24H IV 01/07/17 09:00 01/07/17 10:18 (K-Lyte Cl Eff) 25 meq Q12HR PO 01/07/17 12:45 01/07/17 13:12 (K-Phos Neutral) 250 mg Q8HR PO 01/07/17 14:00 01/07/17 13:12 Family History Mother: , colon cancer Father: , age 97 Social History Patient lives with in [place], [place] in a one-story home with one step to enter. Exam I&O / VS Vital Signs Date Time Temp Pulse Resp B/P (MAP) Pulse Ox O2 Delivery O2 Flow Rate FiO2 01/07/17 13:14 97.3 92 16 170/96 (120) 92 01/07/17 09:33 92 01/07/17 08:52 97.3 96 16 171/84 (113) 92 01/07/17 06:00 97.2 92 18 159/86 (110) 95 01/07/17 00:00 97.8 81 18 147/71 (96) 95 01/06/17 23:00 81 01/06/17 22:00 81 01/06/17 20:00 98.1 94 18 157/79 (105) 93 01/06/17 16:35 97.1 89 16 152/78 (102) 91 General: No acute distress Respiratory: Lungs CTA, Non-labored respirations, BS equal, Coarse breath sounds Gastrointestinal: Positive Bowel Sounds, Non-Distended, Non-Tender Cardiovascular: Normal rate, Normal peripheral perfusion, Regular Rhythm Musculoskeletal: ROM, Swelling Psychiatric: Cooperative Orientation: oriented to Self, oriented to Situation, disoriented to Place, disoriented to Time Neurologic: Pupils (PERRLA), EOM (tracks right and left), Speech (word finding difficulties) Motor: Right Upper Extremity (3+/5), Left Upper Extremity (4/5), Right Lower Extremity (3+/5), Left Lower Extremity (4/5) Sensory Difficult to assess but appears to be grossly intact DTRs: Normal (1+ throughout) Clonus: Negative Assessment and Plan Diagnosis: (1) CVA (cerebral vascular accident) ICD Codes: I63.9 - Cerebral infarction, unspecified Status: Acute Qualifiers: Laterality of affected vessel: bilateral Assessment 1. Bilateral infarcts including right MCA/PHP PROGRAMMER watershed zone, left occipital and suprasylvian region and right posterior insula 2. Multiple sclerosis 3. Hypertension 4. Previous DVT/PE 5. Pneumonia 6. UTI/left renal calculus: Urology recommending continued Beckman until urinary is clear Plan 1. Speech therapy has evaluated swallow and tolerating pured diet with nectar thick liquids. Speech/cognitive evaluation pending 2. Physical therapy mobilizing and patient is now mod assist of 2 to transfer to stretcher chair. Continue to mobilize out of bed as tolerated 3. Occupational therapy for ADLs 4. Anticipate patient will need ongoing inpatient rehabilitation at discharge. Will follow in conjunction with case management 5. Will follow while hospitalized and at discharge is appropriate Thank you for this consult. Lou Moreira MD Jan 07, 2017 13:34
--- NOTE | 2017-01-07 14:43 | PD.CONS ---
HPI Consult Requested By Primary Care Physician Unknown History of Present Illness 76-year-old female with past medical history of multiple sclerosis, hyperlipidemia, DVT and PE on Xarelto, CVA with expressive aphasia. History obtained from records. The patient was admitted for the hospital in [place] on 12/21/16 with sudden onset of slurred speech and right-sided facial droop. The patient was evaluated by neurology, Dr. Philip Fountain for acute CVA. MRI was obtained and it showed a 3 cm triangular area of abnormal signal and restricted flow involving the left temporal lobe, sylvian fissure into the basal ganglia consistent with acute infarct of the left MCA distribution. There is also reported one episode of lethargy with repeat CT brain showing evolution of the left MCA territory ischemia/infarction without hemorrhagic conversion. Yesterday she was noted to be more lethargic head CT was ordered showed a new acute to subacute right posterior parietal/occipital mild convexity infarct. It showed evolving infarct involving the medial left occipital mild complexities , left mid parietal high convexities and mid right parietal high convexities. No hemorrhage, hydrocephalus or herniation were observed. Cardiology consulted for mildly elevated troponin. No CV complaints. Review of Systems ROS Limitations: Speech Impaired, Poor Historian Consitutional: DENIES: Fatigue, Fever, Chills, Weight gain, Weight loss Eyes: DENIES: Amaurosis Fug[place], Change in vision HEENT: DENIES: Lightheadedness, Change in hearing Respiratory: DENIES: See HPI, Cough, Snoring, Shortness of breath, Wheezing, Sputum production Cardiovascular: DENIES: See HPI, Chest pain, Palpitations, Syncope, Tachycardia Gastrointestinal: DENIES: Nausea, Vomiting, Change in bowel habits, Reflux, Bloody stools, Melena Genitourinary: DENIES: Urinary incontinence, Difficulty voiding Integumentary: DENIES: Rash Neurologic: DENIES: Tingling or numbness, Memory problems, Poor Balance, Stroke symptoms Musculoskeletal: DENIES: Joint pain, Muscle pain, Limited range of motion, Back pain Psychiatric: DENIES: Anxiety, Depression, Sleep disturbances Hematologic: DENIES: Bruising tendencies, Bleeding tendencies Endocrine: DENIES: Weight gain, Weight loss, Thyroid disease Past Family Social History Allergies: Coded Allergies: Sulfa (Sulfonamide Antibiotics) (Verified Allergy, Intermediate, 12/28/16) hives Penicillins (Verified Allergy, Unknown, 12/28/16) childhood reaction unknown Past Medical History 1. Multiple sclerosis on Aubagio. 2. 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 3. Hyperlipidemia. Past Surgical History History of traumatic laceration of of the nose 3 years with plastic surgery. Reported Medications Reported Meds & Active Scripts Active Reported Aubagio (Teriflunomide) 14 Mg Tab 14 Mg PO DAILY Xarelto (Rivaroxaban) 15 Mg Tab 15 Mg PO DAILY Active Ordered Medications Current Medications Medications (Trade) Dose Ordered Sig/Marilin Route Start Time Stop Time Status Last Admin (Narcan Inj) 0.4 mg UNSCH PRN IV PUSH 01/05/17 21:00 Levofloxacin/ Dextrose 150 ml @ 100 mls/hr Q24H IV 01/06/17 15:00 01/06/17 16:23 Metronidazole 100 ml @ 100 mls/hr Q8H IV 01/05/17 22:00 01/07/17 13:12 Methylprednisolone Sodium Succinate 250 mg/Dextrose 100 ml @ 104 mls/hr Q6HR IV 01/05/17 23:00 01/07/17 11:55 (Milk Of Magnesia Liq) 30 ml DAILY PRN PO 01/05/17 21:00 (Diflucan) 150 mg DAILY PO 01/06/17 09:00 01/07/17 10:10 (Fioricet 325-50-40) 1 tab Q8H PRN PO 01/05/17 21:00 (Blistex Lip [place]) 1 applic UNSCH PRN TOPICAL 01/05/17 21:00 (Aspirin Chew) 81 mg DAILY CHEW 01/06/17 09:00 01/07/17 10:10 (Pepcid) 20 mg BID PO 01/05/17 21:00 01/07/17 10:10 (Zofran Inj) 4 mg Q6HR PRN IV PUSH 01/05/17 21:00 (Pill Splitter) 1 ea UNSCH PRN OTHER 01/05/17 21:45 (NS Flush) 2 ml BID IV FLUSH 01/06/17 21:00 01/07/17 09:00 (NS Flush) 2 ml UNSCH PRN IV FLUSH 01/06/17 10:15 Sodium Chloride 1,000 ml @ 70 mls/hr [id number] IV 01/06/17 10:00 01/07/17 13:12 (NovoLOG SUPPLEMENTAL SCALE) 1 ACHS SQ 01/06/17 12:00 01/06/17 18:16 (D50w (Vial) Inj) 50 ml UNSCH PRN IV PUSH 01/06/17 10:15 (Glucagon Inj) 1 mg UNSCH PRN OTHER 01/06/17 10:15 (Dulcolax Supp) 10 mg DAILY PRN RECTAL 01/06/17 12:00 ([place] 5-325 Mg) 1 tab Q4H PRN PO 01/06/17 17:30 01/06/17 22:13 Fluconazole/ Sodium Chloride 50 ml @ 50 mls/hr Q24H IV 01/07/17 09:00 01/07/17 10:18 (K-Lyte Cl Eff) 25 meq Q12HR PO 01/07/17 12:45 01/07/17 13:12 (K-Phos Neutral) 250 mg Q8HR PO 01/07/17 14:00 01/07/17 13:12 Physical Exam Vital Signs Vital Signs Date Time Temp Pulse Resp B/P (MAP) Pulse Ox O2 Delivery O2 Flow Rate FiO2 01/07/17 13:14 97.3 92 16 170/96 (120) 92 01/07/17 09:33 92 01/07/17 08:52 97.3 96 16 171/84 (113) 92 01/07/17 06:00 97.2 92 18 159/86 (110) 95 01/07/17 00:00 97.8 81 18 147/71 (96) 95 01/06/17 23:00 81 01/06/17 22:00 81 01/06/17 20:00 98.1 94 18 157/79 (105) 93 01/06/17 16:35 97.1 89 16 152/78 (102) 91 Physical Exam GENERAL: Well-nourished, well-developed patient. SKIN: Warm and dry. HEAD: Normocephalic. EYES: No scleral icterus. No injection or drainage. NECK: Supple, trachea midline. No JVD or lymphadenopathy. CARDIOVASCULAR: Regular rate and rhythm without murmurs, gallops, or rubs. RESPIRATORY: Breath sounds equal bilaterally. No accessory muscle use. GASTROINTESTINAL: Abdomen soft, non-tender, nondistended. EXTREMITIES: No cyanosis, or edema. Laboratory Laboratory Tests Test 01/06/17 21:12 01/07/17 03:39 01/07/17 08:54 01/07/17 08:56 White Blood Count 12.1 12.5 Red Blood Count 3.66 3.81 Hemoglobin 11.3 11.8 Hematocrit 34.0 35.3 Mean Corpuscular Volume 92.8 92.7 Mean Corpuscular Hemoglobin 30.8 30.9 Mean Corpuscular Hemoglobin Concent 33.2 33.3 Red Cell Distribution Width 14.5 14.0 Platelet Count 214 211 Mean Platelet Volume 9.3 9.8 Neutrophils (%) (Auto) 93.4 Lymphocytes (%) (Auto) 2.5 Monocytes (%) (Auto) 4.0 Eosinophils (%) (Auto) 0.0 Basophils (%) (Auto) 0.1 Neutrophils # (Auto) 11.3 Lymphocytes # (Auto) 0.3 Monocytes # (Auto) 0.5 Eosinophils # (Auto) 0.0 Basophils # (Auto) 0.0 CBC Comment DIFF FINAL Differential Comment Erythrocyte Sedimentation Rate 5 Prothrombin Time 27.5 Prothromb Time International Ratio 2.4 Activated Partial Thromboplast Time 27.6 27.4 Blood Urea Nitrogen 32 34 Creatinine 0.47 0.50 Random Glucose 140 172 Total Protein 5.8 Albumin 3.0 Calcium Level 8.4 8.4 Phosphorus Level 1.5 Magnesium Level 2.2 Alkaline Phosphatase 125 Aspartate Amino Transf (AST/SGOT) 52 Alanine Aminotransferase (ALT/SGPT) 45 Total Bilirubin 0.7 Sodium Level 143 145 Potassium Level 3.0 2.9 Chloride Level 110 112 Carbon Dioxide Level 24.2 23.2 Anion Gap 9 10 Estimat Glomerular Filtration Rate 129 120 C-Reactive Protein LESS THAN 0.29 Anti-Nuclear Antibody Screen NEG Triglycerides Level 149 Cholesterol Level 242 LDL Cholesterol 150 HDL Cholesterol 61.8 Cholesterol/HDL Ratio 3.91 Result Diagram: 01/07/17 0856 01/07/17 0854 Imaging Last Impressions Head CT 01/07/17 0000 Signed Impressions: Service Date/Time: Saturday, January 07, 2017 09:43 - CONCLUSION: 1. Multiple evolving bilateral cerebral infarcts involving both anterior and posterior circulation territories, as above. Differential considerations include embolism or vasculitis. 2. No significant intercurrent hemorrhage, herniation, or hydrocephalus. German Bloom MD Neck CTA 01/06/17 0000 Signed Impressions: Service Date/Time: Friday, January 06, 2017 19:10 - CONCLUSION: Normal CTA carotids. David Jordan MD Brain MRI 01/06/17 0000 Signed Impressions: Service Date/Time: Friday, January 06, 2017 18:49 - CONCLUSION: 1. 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 2. Subacute infarctions with possible subacute blood products in the left occipital and left suprasylvian parietal region. 3. Subacute infarction in the right posterior insula without evidence of blood products. David Jordan MD Assessment and Plan Problem List: (1) Elevated troponin ICD Codes: R74.8 - Abnormal levels of other serum enzymes Plan: No CV complaints. EKG no signs of acute ST changes. Troponin minimally elevated in the setting of the CVA. ECHO pending. Not candidate for LHC/PCI given recent CVA. Recommend aggressive medical management for CAD risk factors as tolerated with ASA, statin, beta-blockers and ACEi. Anticoagulation per Neurology. Thank you for the opportunity to take part in the care of this patient Will be available in a PRN basis for any questions or concerns. (2) CVA (cerebral vascular accident) ICD Codes: I63.9 - Cerebral infarction, unspecified Status: Acute (3) Multiple sclerosis ICD Codes: G35 - Multiple sclerosis Status: Chronic (4) Dyslipidemia ICD Codes: E78.5 - Hyperlipidemia, unspecified Status: Chronic (5) Acute ischemic left MCA stroke ICD Codes: I63.512 - Cerebral infarction due to unspecified occlusion or stenosis of left middle cerebral artery (6) HTN (hypertension) ICD Codes: I10 - Essential (primary) hypertension (7) Encephalopathy acute ICD Codes: G93.40 - Encephalopathy, unspecified (8) Hyperglycemia ICD Codes: R73.9 - Hyperglycemia, unspecified (9) Impaired mobility and activities of daily living ICD Codes: Z74.09 - Other reduced mobility Status: Acute Problem Qualifiers (1) CVA (cerebral vascular accident): (2) HTN (hypertension): Qualified Codes: I10 - Essential (primary) hypertension Sunday Suero MD Jan 07, 2017 14:43
--- NOTE | 2017-01-07 15:05 | ECHRPT ---
Indication: CVA/TIA CONCLUSIONS Normal left ventricular size. Wall thickness is normal. The left ventricular systolic function is grossly normal on limited imaging. Doppler parameters are consistent with impaired left ventricular relaxtion (grade 1 diastolic dysfun ction). The left atrial size is mildly dilated. The right atrial size is yelsdayx-wg-soiionvz dilated. Mild thickening of the mitral valve leaflets. Ydki-sg-gwzgzqtv mitral valve regurgitation. Mitral annular calcification is present. Aortic valve sclerosis is present. Trace aortic valve regurgitation. There is moderate to severe tricuspid valve regurgitation. There is estimated severe pulmonary hypertension present ( > 70 mmHg). A prominent epicardial fat pad is present. BP: 147 / 71 HR: Rhythm: Sinus MEASUREMENTS (Male / Female) Normal Values Technical Quality:Fair 2D ECHO LV Diastolic Diameter PLAX 4.4 cm 4.2 - 5.9 / 3.9 - 5.3 cm LV Systolic Diameter PLAX 2.7 cm IVS Diastolic Thickness 0.8 cm 0.6 - 1.0 / 0.6 - 0.9 cm LVPW Diastolic Thickness 0.7 cm 0.6 - 1.0 / 0.6 - 0.9 cm LV Relative Wall Thickness 0.4 LVOT Diameter 1.8 cm Aortic Root Diameter 2.7 cm LA Systolic Diameter LX 2.5 cm 3.0 - 4.0 / 2.7 - 3.8 cm M-MODE AV Cusp Separation MM 1.8 cm DOPPLER AV Peak Velocity 137.0 cm/s AV Peak Gradient 7.5 mmHg AV Mean Gradient 4.0 mmHg AV Velocity Time Integral 20.8 cm LVOT Peak Velocity 89.5 cm/s LVOT Peak Gradient 3.2 mmHg LVOT Velocity Time Integral 16.4 cm AV Area Cont Eq vti 2.0 cm AV Area Cont Eq pk 1.7 cm Mitral E Point Velocity 85.4 cm/s Mitral A Point Velocity 104.0 cm/s Mitral E to A Ratio 0.8 LV E' Lateral Velocity 6.3 cm/s Mitral E to LV E' Lateral Ratio 13.5 LV E' Septal Velocity 5.0 cm/s Mitral E to LV E' Septal Ratio 17.2 TR Peak Velocity 483.0 cm/s TR Peak Gradient 93.3 mmHg Right Atrial Pressure 10.0 mmHg Pulmonary Artery Systolic Pressu 103.3 mmHg Right Ventricular Systolic Press 103.3 mmHg PV Peak Velocity 69.9 cm/s PV Peak Gradient 2.0 mmHg FINDINGS LEFT VENTRICLE Normal left ventricular size. Wall thickness is normal. The left ventricular systolic function is grossly normal on limited imaging. Doppler parameters are consistent with impaired left ventricular relaxtion (grade 1 diastolic dysfun ction). LEFT ATRIUM The left atrial size is mildly dilated. RIGHT ATRIUM The right atrial size is ylmuyymz-nf-fvvrywyt dilated. MITRAL VALVE Mild thickening of the mitral valve leaflets. Vfzp-fw-rgcobujh mitral valve regurgitation. Mitral annular calcification is present. AORTIC VALVE Trileaflet aortic valve. Aortic valve sclerosis is present. Trace aortic valve regurgitation. TRICUSPID VALVE There is moderate to severe tricuspid valve regurgitation. There is estimated severe pulmonary hypertension present ( > 70 mmHg). PERICARDIUM A prominent epicardial fat pad is present. Sunday Suero MD (Electronically Signed) Final Date:07 January 2017 15:03
[2017-01-07] MEDS: LEVOFLOXACIN 750 MG PREMIX INJ 150 ML IV SCH (15:18)
[2017-01-07 16:02] LABS: HEMOGLOBIN A1a 1.3 %; HEMOGLOBIN A1b 1.7 %; HEMOGLOBIN LA1C 2.3 %; HEMOGLOBIN P3 4.1 %
--- NOTE | 2017-01-07 19:40 | HHI.PR ---
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 Now with what is a new right posterior parietal-occipital cva--most likely embolic. No definite hemorrhage on todays CT. MRI is more sensitive for picking up petechial hemorrhage Multiple sclerosis Plan close neurochecks in hospital b/o recent recurrent cva. continue solumedrol for MS Given today's CT brain finding of no gross hemorrhage, I feel it is safe to resume anticoagulation and will resume heparin. I believe the potential benefit in preventing further embolic strokes outweighs the hemorrhagic risk in view of todays CT finding Diagnosis/Plan: Subjective Subjective Comments No acute events reported No headache Has been more alert today MRI brain suggested possible early hemorrhage in some of the strokes so anticoagulation held pending repeat CT brain Active Medications Current Medications Medications (Trade) Dose Ordered Sig/Marilin Route Start Time Stop Time Status Last Admin (Narcan Inj) 0.4 mg UNSCH PRN IV PUSH 01/05/17 21:00 Metronidazole 100 ml @ 100 mls/hr Q8H IV 01/05/17 22:00 01/07/17 13:12 Methylprednisolone Sodium Succinate 250 mg/Dextrose 100 ml @ 104 mls/hr Q6HR IV 01/05/17 23:00 01/07/17 17:03 (Milk Of Magnesia Liq) 30 ml DAILY PRN PO 01/05/17 21:00 (Diflucan) 150 mg DAILY PO 01/06/17 09:00 01/07/17 10:10 (Fioricet 325-50-40) 1 tab Q8H PRN PO 01/05/17 21:00 (Blistex Lip [place]) 1 applic UNSCH PRN TOPICAL 01/05/17 21:00 (Aspirin Chew) 81 mg DAILY CHEW 01/06/17 09:00 01/07/17 10:10 (Pepcid) 20 mg BID PO 01/05/17 21:00 01/07/17 10:10 (Zofran Inj) 4 mg Q6HR PRN IV PUSH 01/05/17 21:00 (Pill Splitter) 1 ea UNSCH PRN OTHER 01/05/17 21:45 (NS Flush) 2 ml BID IV FLUSH 01/06/17 21:00 01/07/17 09:00 (NS Flush) 2 ml UNSCH PRN IV FLUSH 01/06/17 10:15 Sodium Chloride 1,000 ml @ 70 mls/hr [id number] IV 01/06/17 10:00 01/07/17 13:12 (NovoLOG SUPPLEMENTAL SCALE) 1 ACHS SQ 01/06/17 12:00 01/07/17 17:00 (D50w (Vial) Inj) 50 ml UNSCH PRN IV PUSH 01/06/17 10:15 (Glucagon Inj) 1 mg UNSCH PRN OTHER 01/06/17 10:15 (Dulcolax Supp) 10 mg DAILY PRN RECTAL 01/06/17 12:00 ([place] 5-325 Mg) 1 tab Q4H PRN PO 01/06/17 17:30 01/06/17 22:13 Fluconazole/ Sodium Chloride 50 ml @ 50 mls/hr Q24H IV 01/07/17 09:00 01/07/17 10:18 (K-Lyte Cl Eff) 25 meq Q12HR PO 01/07/17 12:45 01/07/17 13:12 (K-Phos Neutral) 250 mg Q8HR PO 01/07/17 14:00 01/07/17 13:12 Levofloxacin/ Dextrose 100 ml @ 100 mls/hr Q24H IV 01/08/17 15:00 Clindamycin Phosphate 600 mg/ Sodium Chloride 104 ml @ 208 mls/hr Q8H IV 01/07/17 18:00 (Duoneb Neb) 1 ampule Q6HR WHILE AWAKE NEB NEB 01/07/17 20:00 Allergies Allergies Coded Allergies Sulfa (Sulfonamide Antibiotics) (Verified Allergy, Intermediate, 12/28/16) Penicillins (Verified Allergy, Unknown, 12/28/16) Exam I&O / VS 01/07/17 01/07/17 01/08/17 15:00 23:00 07:00 Intake Total 950 ml Output Total 300 ml Balance 650 ml Intake IV Total 950 ml Output Urine Total 300 ml Vital Signs Date Time Temp Pulse Resp B/P (MAP) Pulse Ox O2 Delivery O2 Flow Rate FiO2 01/07/17 16:39 97.4 99 16 167/93 (117) 90 01/07/17 13:14 97.3 92 16 170/96 (120) 92 01/07/17 09:33 92 01/07/17 08:52 97.3 96 16 171/84 (113) 92 01/07/17 06:00 97.2 92 18 159/86 (110) 95 01/07/17 00:00 97.8 81 18 147/71 (96) 95 01/06/17 23:00 81 01/06/17 22:00 81 01/06/17 20:00 98.1 94 18 157/79 (105) 93 Respiratory: Lungs CTA, Non-labored respirations, BS equal, Coarse breath sounds Cardiology: Normal rate, Normal peripheral perfusion, Regular Rhythm Musculoskeletal: ROM, Swelling Exam Comments More alert today, follows commands. PERRL EOM intact Right umn cn 7 palsey 3/5 RUE. 4/5 LUE Objective Radiology Results CT brain---cva's as noted but no gross hemorrhagic conversion Micro and Labs Laboratory Tests Test 01/06/17 21:12 01/07/17 03:39 01/07/17 08:54 01/07/17 08:56 White Blood Count 12.1 12.5 Red Blood Count 3.66 3.81 Hemoglobin 11.3 11.8 Hematocrit 34.0 35.3 Mean Corpuscular Volume 92.8 92.7 Mean Corpuscular Hemoglobin 30.8 30.9 Mean Corpuscular Hemoglobin Concent 33.2 33.3 Red Cell Distribution Width 14.5 14.0 Platelet Count 214 211 Mean Platelet Volume 9.3 9.8 Neutrophils (%) (Auto) 93.4 Lymphocytes (%) (Auto) 2.5 Monocytes (%) (Auto) 4.0 Eosinophils (%) (Auto) 0.0 Basophils (%) (Auto) 0.1 Neutrophils # (Auto) 11.3 Lymphocytes # (Auto) 0.3 Monocytes # (Auto) 0.5 Eosinophils # (Auto) 0.0 Basophils # (Auto) 0.0 CBC Comment DIFF FINAL Differential Comment Erythrocyte Sedimentation Rate 5 Prothrombin Time 27.5 Prothromb Time International Ratio 2.4 Activated Partial Thromboplast Time 27.6 27.4 Blood Urea Nitrogen 32 34 Creatinine 0.47 0.50 Random Glucose 140 172 Total Protein 5.8 Albumin 3.0 Calcium Level 8.4 8.4 Phosphorus Level 1.5 Magnesium Level 2.2 Alkaline Phosphatase 125 Aspartate Amino Transf (AST/SGOT) 52 Alanine Aminotransferase (ALT/SGPT) 45 Total Bilirubin 0.7 Sodium Level 143 145 Potassium Level 3.0 2.9 Chloride Level 110 112 Carbon Dioxide Level 24.2 23.2 Anion Gap 9 10 Estimat Glomerular Filtration Rate 129 120 C-Reactive Protein LESS THAN 0.29 Anti-Nuclear Antibody Screen NEG Triglycerides Level 149 Cholesterol Level 242 LDL Cholesterol 150 HDL Cholesterol 61.8 Cholesterol/HDL Ratio 3.91 Philip Fountain PhD Jan 07, 2017 19:40
[2017-01-07] MEDS ORDERED: GLUCAGON 1 MG/ML VIAL OTHER PRN (19:45)
[2017-01-07] MEDS ORDERED: SODIUM CHLORIDE 0.9% FLUSH 5 ML FLUSH IV FLUSH PRN (19:45)
[2017-01-07] MEDS ORDERED: DEXTROSE 50% IN WATER 50 ML VIAL(D50) IV PUSH PRN (19:45)
[2017-01-07] MEDS: RESP: ALBUTEROL 2.5 MG/IPRATROPIUM 0.5 MG NEB (SCH) NEB (19:49)
--- NOTE | 2017-01-07 20:38 | RADRPT ---
EXAM DATE/TIME: 01/07/2017 19:29 [place] COMPARISON: CT THORAX W CONTRAST, January 05, 2017, 13:48. CHEST SINGLE AP, January 03, 2017, 9:08. INDICATIONS : Shortness of breath. MEDICAL HISTORY : Stroke. pulmonary embolism. SURGICAL HISTORY : None. ENCOUNTER: Subsequent ACUITY: 3 days PAIN SCORE: Non-responsive. LOCATION: Bilateral chest FINDINGS: There continues to be an area of consolidation in the left mid lung. This appears more prominent curr ent exam. This increased density in the left perihilar region. The right lung appears clear. The hear t size is grossly normal. There is silhouetting of the left hemidiaphragm suggestive of a mild left e ffusion or worsening consolidation at the left base. CONCLUSION: Worsening consolidation or mass in the left mid lung and perihilar region. Continued followup is arlen mmended. The patient recently had a CT examination of the chest. Barry Edward MD on January 07, 2017 at 20:35 Board Certified Radiologist. This report was verified electronically.
[2017-01-07] MEDS ORDERED: SODIUM CHLORIDE 0.9% FLUSH 5 ML FLUSH IV FLUSH SCH (21:00)
[2017-01-07] MEDS: CLINDAMYCIN INJ 600 MG in SODIUM CHLORIDE 0.9% INJ 100 ML IV SCH (21:38)
--- NOTE | 2017-01-07 22:20 | PD.ONC.PN ---
Subjective Subjective Remarks Full Consult Note dictated Continue heparin for now and then transition to Coumadin with goal of INR 2-3 Continue Heparin or Lovenox bridging for at-least 72 once INR is above 2 Objective Data Date Time Temp Pulse Resp B/P (MAP) Pulse Ox O2 Delivery O2 Flow Rate FiO2 01/07/17 21:44 97.3 99 18 162/89 (113) 89 01/07/17 19:49 94 Nasal Cannula 4.00 01/07/17 16:39 97.4 99 16 167/93 (117) 90 01/07/17 13:14 97.3 92 16 170/96 (120) 92 01/07/17 09:33 92 01/07/17 08:52 97.3 96 16 171/84 (113) 92 01/07/17 06:00 97.2 92 18 159/86 (110) 95 01/07/17 00:00 97.8 81 18 147/71 (96) 95 01/06/17 23:00 81 01/07/17 01/07/17 01/07/17 07:00 15:00 23:00 Intake Total 950 ml Output Total 750 ml 300 ml Balance -750 ml 650 ml Result Diagram: 01/07/17 0856 01/07/17 0854 Laboratory Results Laboratory Tests Test 01/07/17 03:39 01/07/17 08:54 01/07/17 08:56 Activated Partial Thromboplast Time 27.4 SEC Triglycerides Level 149 MG/DL Cholesterol Level 242 MG/DL LDL Cholesterol 150 MG/DL HDL Cholesterol 61.8 MG/DL Cholesterol/HDL Ratio 3.91 RATIO Blood Urea Nitrogen 34 MG/DL Creatinine 0.50 MG/DL Random Glucose 172 MG/DL Calcium Level 8.4 MG/DL Sodium Level 145 MEQ/L Potassium Level 2.9 MEQ/L Chloride Level 112 MEQ/L Carbon Dioxide Level 23.2 MEQ/L Anion Gap 10 MEQ/L Estimat Glomerular Filtration Rate 120 ML/MIN White Blood Count 12.5 TH/MM3 Red Blood Count 3.81 MIL/MM3 Hemoglobin 11.8 GM/DL Hematocrit 35.3 % Mean Corpuscular Volume 92.7 FL Mean Corpuscular Hemoglobin 30.9 PG Mean Corpuscular Hemoglobin Concent 33.3 % Red Cell Distribution Width 14.0 % Platelet Count 211 TH/MM3 Mean Platelet Volume 9.8 FL Imaging Studies Last [address] 01/07/17 0000 Signed Impressions: Service Date/Time: Saturday, January 07, 2017 09:43 - CONCLUSION: 1. Multiple evolving bilateral cerebral infarcts involving both anterior and posterior circulation territories, as above. Differential considerations include embolism or vasculitis. 2. No significant intercurrent hemorrhage, herniation, or hydrocephalus. German Bloom MD Administered Medications Medications (Trade) Dose Ordered Sig/Marilin Route PRN Reason Start Time Stop Time Status Last Admin Dose Admin Metronidazole 100 ml @ 100 mls/hr Q8H IV 01/05/17 22:00 01/07/17 21:39 Methylprednisolone Sodium Succinate 250 mg/Dextrose 100 ml @ 104 mls/hr Q6HR IV 01/05/17 23:00 01/07/17 17:03 Fluconazole (Diflucan) 150 mg DAILY PO 01/06/17 09:00 01/07/17 10:10 Aspirin (Aspirin Chew) 81 mg DAILY CHEW 01/06/17 09:00 01/07/17 10:10 Famotidine (Pepcid) 20 mg BID PO 01/05/17 21:00 01/07/17 21:38 IV Flush (NS Flush) 2 ml BID IV FLUSH 01/06/17 21:00 01/07/17 21:00 Sodium Chloride 1,000 ml @ 70 mls/hr [id number] IV 01/06/17 10:00 01/07/17 13:12 Acetaminophen/ Hydrocodone Bitart ([place] 5-325 Mg) 1 tab Q4H PRN PO PAIN 1 TO 10 AND/OR AGITATION 01/06/17 17:30 01/06/17 22:13 Fluconazole/ Sodium Chloride 50 ml @ 50 mls/hr Q24H IV 01/07/17 09:00 01/07/17 10:18 Potassium Bicarb/ Potassium Chloride (K-Lyte Cl Eff) 25 meq Q12HR PO 01/07/17 12:45 01/07/17 21:38 Potassium Phos/ Sodium Phos (K-Phos Neutral) 250 mg Q8HR PO 01/07/17 14:00 01/07/17 21:38 Clindamycin Phosphate 600 mg/ Sodium Chloride 104 ml @ 208 mls/hr Q8H IV 01/07/17 18:00 01/07/17 21:38 Albuterol/ Ipratropium (Duoneb Neb) 1 ampule Q6HR WHILE AWAKE NEB NEB 01/07/17 20:00 01/07/17 19:49 Objective Remarks GENERAL: nad SKIN: Warm and dry. HEAD: Normocephalic. EYES: No scleral icterus. No injection or drainage. NECK: Supple, trachea midline. No JVD or lymphadenopathy. LYMPHATIC: No adenopathy. CARDIOVASCULAR: Regular rate and rhythm without murmurs. RESPIRATORY: Breath sounds equal bilaterally. No accessory muscle use. GASTROINTESTINAL: Abdomen soft, non-tender, nondistended. EXTREMITIES: No cyanosis, or edema. MUSCULOSKELETAL: Adequate muscle tone. NEUROLOGICAL: RUE weakness 3/5 PSYCHIATRIC: Appropriate mood and affect; insight and judgment normal. Assessment/Plan Problem List: (1) Expressive aphasia ICD Codes: R47.01 - Aphasia Status: Acute (2) Multiple sclerosis ICD Codes: G35 - Multiple sclerosis Status: Chronic (3) Encephalopathy acute ICD Codes: G93.40 - Encephalopathy, unspecified (4) CVA (cerebral vascular accident) ICD Codes: I63.9 - Cerebral infarction, unspecified Status: Acute (5) Acute ischemic left MCA stroke ICD Codes: I63.512 - Cerebral infarction due to unspecified occlusion or stenosis of left middle cerebral artery Problem Qualifiers (1) CVA (cerebral vascular accident): Tomas Yarbrough MD Jan 07, 2017 22:20
--- NOTE | 2017-01-07 22:23 | MB ---
cc: UMBERTO LEE DATE OF CONSULTATION 01/07/2017 REASON FOR CONSULTATION Respiratory distress and pneumonia. HISTORY OF THE PRESENT ILLNESS This is a 76-year-old lady with a history of multiple sclerosis and history of hyperlipidemia and deep venous thrombosis. Has been treated for CVA and also has had PE. The patient has aphasia and she was in rehab recently but apparently was transferred back to acute care due to increasing lethargy, cough and shortness of breath. She has had expressive aphasia and is being followed by Dr. Fountain and she has been started on high dose of steroids due to her multiple sclerosis with exacerbation. The patient initially was seen at [facility] on 12/21 with slurred speech and a right facial droop and subsequently was seen by neurology and MRI showed a triangular area of abnormal signal with restricted flow to the left temporal lobe, sylvian fissure, into the basal ganglia consistent with an acute infarct in the left MCA distribution. The patient has had trouble swallowing and due to dysphagia she also had some episodes of coughing and aspiration. She did have a CT chest done 3 days ago which showed evidence of bibasilar infiltrates and one consolidated roundish infiltrate in the right base. She has been on antibiotic therapy in the past. The patient does not give any complaints since she is she is aphasic but she has been placed on a puree diet due to aspiration of thin liquids. She is presently not dyspneic and is on oxygen at 2 liters maintaining a saturation of over 96%. PAST MEDICAL HISTORY Includes: 1. Multiple sclerosis since 2013 on Aubagio. 2. The patient also has had DVT and PE and is on Xarelto. 3. She has a history of hyperlipidemia. 4. History of pneumonia. PAST SURGICAL HISTORY Surgery includes: Plastic surgery on the nose. ALLERGIES SULFA DRUGS AND PENICILLIN. REVIEW OF SYSTEMS System review, the patient is unable to relate details but she has some cough, mild wheezing. She has weakness of her extremities, trouble swallowing. No fevers or chills. She has some depression and anxiety. FAMILY HISTORY Mother at age 45 of colon cancer. One sister with multiple sclerosis. SOCIAL HISTORY Habits, the patient was a prior smoker for 15-20 years and quit a long time ago. Alcohol use occasional. MEDICATIONS The med list was reviewed from the chart. PHYSICAL EXAMINATION GENERAL: This thinly built elderly white female who is pale and laying flat but no acute distress. VITAL SIGNS: Blood pressure 140/70, pulse 85, respirations 20, temperature 97.6. HEENT: Head normocephalic. Pupils reactive. Tongue was moist. Throat is clear. NECK: Supple. No bruits or thyroid enlargement or lymphadenopathy. CHEST: Decreased breath sounds at the bases with occasional crackles at the lung bases on the right side. HEART: The heart sounds are regular S1-S2. No murmur. No S3. ABDOMEN: Soft, scaphoid without masses. No organomegaly or tenderness. Bowel sounds are active. EXTREMITIES: Reveal no edema. NEUROLOGIC: The patient does move her extremities with minimal weakness. The patient's speech is somewhat hesitant and she is answering some questions appropriately. SKIN: Dry and cool. IMPRESSION 1. Aspiration pneumonia with hypoxemia. 2. Expressive aphagia. 3. History of cerebrovascular accident. 4. History of pulmonary emboli. 5. Dysphagia with aspiration. 6. Hypertension. PLAN The patient will be placed on 2 liters of oxygen. We will also place her on antibiotic coverage including Levaquin 500 mg IV daily and clindamycin 600 mg IV q.8h. Follow up chest x-ray to be done this week. Incentive spirometry at the bedside q.i.d. Nebulized DuoNeb solution added q.i.d. Aspiration precautions including puree diet to be followed. I explained the issues with her family that was present here. Thank you Dr. Terry for this consultation. MD KARLA East/JAVIER /6:11 PM /10:09 PM
[2017-01-08] VITALS (9 sets, daily range): BP systolic 140–175; BP diastolic 75–96; PULSE 80–104; RESP 18–20; TEMP 94.5–98.3; O2SAT 91–95
[2017-01-08 00:19] LABS: HEMATOCRIT 33.4 % (35.0-46.0); MEAN CELL VOLUME 92.5 FL (80.0-100.0); MEAN CORPUSCULAR HEMOGLOBIN 30.7 PG (27.0-34.0); MEAN CORPUSCULAR HGB CONC 33.2 % (32.0-36.0); PLATELET COUNT 191 TH/MM3 (150-450); RED BLOOD COUNT 3.61 MIL/MM3 (4.00-5.30); RED CELL DISTRIBUTION WIDTH 14.5 % (11.6-17.2); REVIEW FLAG FINAL; WHITE BLOOD COUNT 9.6 TH/MM3 (4.0-11.0)
[2017-01-08 01:08] LABS: APTT (PATIENT) 27.6 SEC (24.3-30.1); INTERNATIONAL NORMALIZED RATIO 2.7 RATIO; PROTHROMBIN TIME - PATIENT 31.7 SEC (9.8-11.6)
[2017-01-08] MEDS: CLINDAMYCIN INJ 600 MG in SODIUM CHLORIDE 0.9% INJ 100 ML IV SCH ×3 (02:21→18:03)
[2017-01-08] MEDS: HEPARIN-D5W 25,000 U/250 ML 250 ML IV SCH (02:38)
[2017-01-08] MEDS: metroNIDAZOLE 500 MG INJ 100 ML IV SCH ×3 (05:25→21:01)
[2017-01-08] MEDS: methylPREDNISolone SO SUCC INJ 250 MG in DEXTROSE 5% IN WATER 100ML INJ 100 ML IV SCH ×6 (05:26→18:44)
[2017-01-08] MEDS: SODIUM CHLOR 0.9% 1000 ML INJ 1,000 ML IV SCH ×2 (05:26→20:58)
[2017-01-08] MEDS: POTASSIUM PHOSPHATE/SODIUM PHOSPHATE 250 MG TAB PO SCH ×3 (05:26→21:01)
[2017-01-08] MEDS: ACETAMINOPHEN/HYDROcodone 325 MG/5 MG TAB PO PRN (05:26)
[2017-01-08] MEDS: INSULIN ASPART SUPPLEMENTAL SCALE SQ SCH ×4 (08:00→21:02)
[2017-01-08] MEDS: RESP: ALBUTEROL 2.5 MG/IPRATROPIUM 0.5 MG NEB (SCH) NEB ×3 (08:09→19:02)
[2017-01-08] MEDS: POTASSIUM CHLORIDE 25 MEQ EFFERVESCENT TAB PO SCH ×2 (08:40→20:59)
[2017-01-08] MEDS: ASPIRIN 81 MG CHEW TAB CHEW SCH (08:40)
[2017-01-08] MEDS: SODIUM CHLORIDE 0.9% FLUSH 5 ML FLUSH IV FLUSH SCH ×2 (08:40→20:59)
[2017-01-08] MEDS: FLUCONAZOLE 100 MG TAB PO SCH (08:40)
[2017-01-08] MEDS: FLUCONAZOLE 100 MG PREMIX BAG 50 ML IV SCH (08:40)
[2017-01-08] MEDS: FAMOTIDINE 20 MG TAB PO SCH ×2 (08:41→21:01)
[2017-01-08 09:10] LABS: APTT (PATIENT) 27.6 SEC (24.3-30.1)
[2017-01-08 09:36] LABS: BICARBONATE 24.4 MEQ/L (21.0-32.0); HDL CHOLESTEROL 59.5 MG/DL (40.0-60.0)
[2017-01-08 09:43] LABS: POTASSIUM 2.7 MEQ/L (3.5-5.1)
[2017-01-08] MEDS ORDERED: POTASSIUM CHLORIDE INJ 40 MEQ in SODIUM CHLOR 0.45% 1000 ML INJ 1,000 ML IV SCH (12:00)
[2017-01-08] MEDS: POTASSIUM CHLOR 20 MEQ PREMIX 100 ML IV SCH ×2 (12:48→21:54)
--- NOTE | 2017-01-08 12:55 | HHI.PR ---
Subjective Remarks Daughter, and son at bedside Reported difficuty overnight obtaining IV Access - therefore patient did not sleep well and IV heparin could not be started. Reported constipation patient denies abdominal pain, chest pain or sob hematurial still present but improving. Objective Vitals Vital Signs Date Time Temp Pulse Resp B/P (MAP) Pulse Ox O2 Delivery O2 Flow Rate FiO2 01/08/17 08:11 93 Nasal Cannula 4.00 01/08/17 08:00 97.3 104 20 163/89 (113) 95 01/08/17 05:55 98.1 101 18 175/96 (122) 91 01/08/17 01:33 98.3 84 19 150/86 (107) 94 01/07/17 23:00 84 01/07/17 22:00 84 01/07/17 21:44 97.3 99 18 162/89 (113) 89 01/07/17 19:49 94 Nasal Cannula 4.00 01/07/17 16:39 97.4 99 16 167/93 (117) 90 01/07/17 13:14 97.3 92 16 170/96 (120) 92 I/O 01/07/17 01/07/17 01/07/17 01/08/17 01/08/17 01/08/17 07:00 15:00 23:00 07:00 15:00 23:00 Intake Total 950 ml 100 ml 50 ml Output Total 750 ml 300 ml 800 ml Balance -750 ml 650 ml -700 ml 50 ml Intake IV Total 950 ml 100 ml 50 ml Output Urine Total 750 ml 300 ml 800 ml Result Diagram: 01/07/17 2342 01/08/17 0814 Imaging Last Impressions Head CT 01/07/17 0000 Signed Impressions: Service Date/Time: Saturday, January 07, 2017 09:43 - CONCLUSION: 1. Multiple evolving bilateral cerebral infarcts involving both anterior and posterior circulation territories, as above. Differential considerations include embolism or vasculitis. 2. No significant intercurrent hemorrhage, herniation, or hydrocephalus. German Bloom MD Chest X-Ray 01/07/17 0000 Signed Impressions: Service Date/Time: Saturday, January 07, 2017 19:29 - CONCLUSION: Worsening consolidation or mass in the left mid lung and perihilar region. Continued followup is recommended. The patient recently had a CT examination of the chest. Barry Edward MD Neck CTA 01/06/17 0000 Signed Impressions: Service Date/Time: Friday, January 06, 2017 19:10 - CONCLUSION: Normal CTA carotids. David Jordan MD Brain MRI 01/06/17 0000 Signed Impressions: Service Date/Time: Friday, January 06, 2017 18:49 - CONCLUSION: 1. Acute nonhemorrhagic infarction in the right MCA [employer] watershed zone. 2. Subacute infarctions with possible subacute blood products in the left occipital and left suprasylvian parietal region. 3. Subacute infarction in the right posterior insula without evidence of blood products. David Jordan MD Objective Remarks Patient is awake and alert, nonacute distress Seems to have difficulty seeing Lungs are clear Abdomen is soft, nontender nondistended Beckman catheter in place with clearing hematuria. No edema in bilateral lower extremities. More alert today, follows commands. PERRL EOM intact Right umn cn 7 palsey 3/5 RUE. 4/5 LUE right hemiparesia Procedures none Medications and IVs Current Medications Medications (Trade) Dose Ordered Sig/Marilin Route Start Time Stop Time Status Last Admin (Narcan Inj) 0.4 mg UNSCH PRN IV PUSH 01/05/17 21:00 Metronidazole 100 ml @ 100 mls/hr Q8H IV 01/05/17 22:00 01/08/17 21:01 Methylprednisolone Sodium Succinate 250 mg/Dextrose 100 ml @ 104 mls/hr Q6HR IV 01/05/17 23:00 01/08/17 18:44 (Milk Of Magnesia Liq) 30 ml DAILY PRN PO 01/05/17 21:00 (Diflucan) 150 mg DAILY PO 01/06/17 09:00 01/07/17 10:10 (Fioricet 325-50-40) 1 tab Q8H PRN PO 01/05/17 21:00 (Blistex Lip Leola) 1 applic UNSCH PRN TOPICAL 01/05/17 21:00 (Aspirin Chew) 81 mg DAILY CHEW 01/06/17 09:00 01/07/17 10:10 (Pepcid) 20 mg BID PO 01/05/17 21:00 01/08/17 21:01 (Zofran Inj) 4 mg Q6HR PRN IV PUSH 01/05/17 21:00 (Pill Splitter) 1 ea UNSCH PRN OTHER 01/05/17 21:45 (NS Flush) 2 ml BID IV FLUSH 01/06/17 21:00 01/07/17 21:00 (NS Flush) 2 ml UNSCH PRN IV FLUSH 01/06/17 10:15 Sodium Chloride 1,000 ml @ 70 mls/hr [id number] IV 01/06/17 10:00 01/08/17 20:58 (Dulcolax Supp) 10 mg DAILY PRN RECTAL 01/06/17 12:00 ([place]mira 5-325 Mg) 1 tab Q4H PRN PO 01/06/17 17:30 01/08/17 05:26 Fluconazole/ Sodium Chloride 50 ml @ 50 mls/hr Q24H IV 01/07/17 09:00 01/08/17 08:40 (K-Lyte Cl Eff) 25 meq Q12HR PO 01/07/17 12:45 01/08/17 20:59 (K-Phos Neutral) 250 mg Q8HR PO 01/07/17 14:00 01/08/17 21:01 Levofloxacin/ Dextrose 100 ml @ 100 mls/hr Q24H IV 01/08/17 15:00 01/08/17 16:54 Clindamycin Phosphate 600 mg/ Sodium Chloride 104 ml @ 208 mls/hr Q8H IV 01/07/17 18:00 01/08/17 18:03 (Duoneb Neb) 1 ampule Q6HR WHILE AWAKE NEB NEB 01/07/17 20:00 01/08/17 19:02 Heparin Sodium/ Dextrose 250 ml @ 7 mls/hr TITRATE IV 01/07/17 19:45 01/08/17 02:38 (NovoLOG SUPPLEMENTAL SCALE) 1 ACHS SQ 01/07/17 21:00 01/08/17 21:02 (D50w (Vial) Inj) 50 ml UNSCH PRN IV PUSH 01/07/17 19:45 (Glucagon Inj) 1 mg UNSCH PRN OTHER 01/07/17 19:45 Potassium Chloride 40 meq/ Sodium Chloride 1,020 ml @ 42 mls/hr Q24H IV 01/08/17 12:00 Patient Own Medication PT OWN MED: (Teriflunomide (Aubagio)... DAILY PO 01/08/17 13:00 01/08/17 15:50 (Pyridium) 100 mg Q8H PRN PO 01/08/17 13:00 (B & O Supp) 60 mg Q6HR PRN RECTAL 01/08/17 13:00 (Jessi-Colace) 2 tab DAILY PO 01/08/17 13:15 Urinary Catheter: Yes Assessment to: Continue Beckman insert reason: Measure Accurate Output Vascular Central Line Catheter: No A/P Problem List: (1) Encephalopathy acute ICD Code: G93.40 - Encephalopathy, unspecified (2) CVA (cerebral vascular accident) ICD Code: I63.9 - Cerebral infarction, unspecified Status: Acute (3) Pneumonia ICD Code: J18.9 - Pneumonia, unspecified organism (4) Hx pulmonary embolism ICD Code: Z86.711 - Personal history of pulmonary embolism Status: Chronic (5) UTI (urinary tract infection) ICD Code: N39.0 - Urinary tract infection, site not specified (6) Expressive aphasia ICD Code: R47.01 - Aphasia Status: Acute (7) Dysphagia ICD Code: R13.10 - Dysphagia, unspecified Status: Acute (8) Multiple sclerosis ICD Code: G35 - Multiple sclerosis Status: Chronic (9) HTN (hypertension) ICD Code: I10 - Essential (primary) hypertension (10) Hyperglycemia ICD Code: R73.9 - Hyperglycemia, unspecified (11) Hematuria ICD Code: R31.9 - Hematuria, unspecified (12) Elevated troponin ICD Code: R74.8 - Abnormal levels of other serum enzymes Assessment and Plan (1) Encephalopathy acute ICD Code: G93.40 - Encephalopathy, unspecified Plan: Encephalopathy likely multifactorial secondary to new CVA as mentioned above in CT scan and secondary to UTI and aspiration pneumonia. CT of the head showed new left posterior CVA. Neurology consulted on following patient. Patient currently on aspirin and on Xarelto. I will hold Xarelto and place the patient on IV heparin drip given that the patient has hematuria. 01/07 encephalopathy seems to be resolving and much improved. The patient now can have a conversation and follows commands. (2) CVA (cerebral vascular accident) ICD Code: I63.9 - Cerebral infarction, unspecified Plan: As above Given that the patient has had a repeat stroke on anticoagulation I will consult hematology. I will also check for sedimentation rate, CRP, JAMARI and ANCA to rule out vasculitis. 01/07 MRI of the brain as described above shows an acute nonhemorrhagic infarction in the right MCA [employer] watershed zone. It also shows subacute infarctions with possible subacute blood products in the left occipital and left suprasylvian parietal region. Subacute infarction in the right posterior insula without evidence of blood products. CT of the head ordered this morning it does not show any significant intercurrent hemorrhage, herniation or hydrocephalus. Heparin discontinued as per neurology recommendations. Will continue to hold now given hematuria which seems to be improving. Resume anticoagulation as per neurology recommendations and when hematuria resolves. Consult Pt/OT. 01/08 Heparin IV resumed as per neurology. Continue neurochecks. Given occipital strokes and partial blindness will consult ophthalmology. (3) Pneumonia ICD Code: J18.9 - Pneumonia, unspecified organism Plan: Give the chest as mentioned above shows a right upper lobe infiltrate and superior segment of the left lower lobe with nearly masslike focal airspace consolidation in the left lower lobe containing air bronchograms measuring 2.4 2.1 cm. I will consult pulmonary for further recommendations. 01/07 neurology consultation pending. Continue IV Levaquin and IV Flagyl. 01/08 Pulmonary recommendations appreciated Clindamycin IV added by Dr Lit hathaway. (4) Hx pulmonary embolism ICD Code: Z86.711 - Personal history of pulmonary embolism Status: Chronic Plan: Patient has history of bilateral lower extremity DVT and PE initially on Xarelto. However this has been discontinued secondary to hematuria and evidence of possible bladder and MRI which CT does not show. Monitor vital signs and oxygenation. (5) UTI (urinary tract infection) ICD Code: N39.0 - Urinary tract infection, site not specified Plan: Continue IV Levaquin. Patient now has hematuria. I will consult urology. Monitor hemoglobin if it drops then heparin will need to be placed on hold. Urine cultures growing gram-negative rods. HEENT IV Levaquin. 01/07 Jacobo consulted. Recommendations appreciated. Will keep Beckman to drainage until hematuria has completely resolved 24 hours. Urine culture is growing Escherichia coli which is pansensitive. (6) Expressive aphasia ICD Code: R47.01 - Aphasia Status: Acute Plan: Speech therapy consultation. 01/07 expressive aphasia seems to be improving, patient now able to communicate better. (7) Dysphagia ICD Code: R13.10 - Dysphagia, unspecified Status: Acute Plan: Speech therapy recommended a pured diet with nectar consistency thickened liquids. (8) Multiple sclerosis ICD Code: G35 - Multiple sclerosis Status: Chronic Plan: Currently being treated with Solu-Medrol 250 mg IV every 6 hours. 01/07 continue management as per neurology. (9) HTN (hypertension) ICD Code: I10 - Essential (primary) hypertension Plan: Permissive hypertension for now. Hold antihypertensive medications. The patient previously on amlodipine. (10) Hyperglycemia ICD Code: R73.9 - Hyperglycemia, unspecified Plan: Likely steroid-induced. Continue SSI with insulin NovoLog and monitor Accu-Cheks. (11) Hematuria ICD Code: R31.9 - Hematuria, unspecified Plan: I will discontinue Xarelto and start the patient on IV heparin drip without bolus. Monitor hemoglobin every 6 hours and if it drops then consideration of discontinuation of heparin drip should be discussed. I discussed this in detail with the family since stopping anticoagulation could but the patient [place] records for further CVAs. 01/08 hemoglobin stable and hematuria improving. Continue to monitor CBC. Improving. (12) Elevated troponin ICD Code: R74.8 - Abnormal levels of other serum enzymes Plan: Patient's troponin is elevated 0.06, 0.07, I will check an EKG and consult cardiology. Echocardiogram pending. Suspect related to strokes. No chest pain. Echo shows normal systolic function, grade 1 diastolic function but no intracardiac thrombus reported. Discharge Planning PAtient still with hematuria. Once hematuria resolves will start bridging to coumadin and needs to be x 72 hours on both once INR reaches a level of 2 as per hematology indications. Could possibly bridge with Livenox SQ so that patient could go back to acute rehab. Problem Qualifiers (1) CVA (cerebral vascular accident): (2) HTN (hypertension): Qualified Codes: I10 - Essential (primary) hypertension Shon Bernal MD Jan 08, 2017 12:55
[2017-01-08] MEDS ORDERED: BELLADONNA ALKALOIDS/OPIUM 60 MG SUPP RECTAL PRN (13:00)
[2017-01-08] MEDS: DOCUSATE SODIUM 50 MG/SENNA 8.6 MG TAB PO SCH (13:15)
--- NOTE | 2017-01-08 15:21 | PD.CONS ---
Consult Service Palliative Care . Consult Requested By Dr. Terry . Primary Care Physician Dr. Sherita Ortiz ,.. Reason for Consultation a. To assist with evaluation and management of symptoms including: dyspnea; expressive dysphasia; dysphagia; pain b. To assist medical decision maker(s) with: better understanding of current medical conditions; weighing benefits/burdens of medical treatment options; making medical treatment decisions. . HPI History of Present Illness Ms. Curiel is 76 y/o female with the following relevant medical history... * Multiple sclerosis diagnosed in [address] Fountain. On Aubagio tablets with symptoms (mostly leg weakness) stabilizing. . * Bilateral lower extremity DVT accompanied by PE in September 2016. w/u at [facility]. 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 MRI showed acute infarct in left MCA distritubtion. Mutliple punctate foci in left paritetal, left occipital, and left frontal lobe areas. No embolic source found on imaging. * Admitted to [facility] on 12/28/16 * Another stroke while on rehab 12/30/16 . Developed confusion and increased slurring of speech. Initially unclear if this was another stroke or a MS exacerbation superimposed on top of her recent stroke. IV steroids were started. * Comparison with prior MRI showed new additional stroke in left WEIGHT TESTER territory. Neurology believes this is embolic. * Developed gross hematuria on anti-coagulation. However, anti-coagulation felt important to prevent further embolic strokes. Hematology consulted 01/07/17 and anti-coagulation resumed. * Has developed visual deficits from occipital stroke. * Developed some evidence of dysphagia and then probable aspiration pneumonia. Pulmonary consulted on 01/07/17. Placed on antibiotics. * Speech therapy demonstrates ongoing moderate dysphagia on 01/08/17 Patient denies pain at time of my visit. Patient has an order for hydrocodone but it has not been used. She gets frustrated with her inability to express herself. She frequently takes her 02 off and is unaware of it. Frequent complaints that she has to urinate while abernathy is in place. . Function/Cognitive Trajectory Ms. Curiel's multiple sclerosis was reportedly stabilized and she was able to take care of all ADLs and ambulate without ambulatory device prior to her first stroke. does report that prior to her first diagnosed stroke there was a month of increasing weakness, possibly more so on her right side. There were no cognitive changes at that time. . Review of Systems ROS Limitations: Clinical Condition (Patient is unable to provide her own ROS due to her expressive dysphasia. ROS taken from medical record and available family. ) Constitutional: COMPLAINS OF: Weight loss (8 lb wieght loss over last months. ) , Change in appetite (Poor appetite for month), DENIES: Fatigue, Fever, Weight gain, Dizziness, Pain, Generalized weakness Eyes: COMPLAINS OF: Vision loss (Normally wears reading glasses. New reported deficits since most recent stroke. ), Blind spots Ears, nose, mouth, throat: COMPLAINS OF: Running Nose, DENIES: Tinnitus, Hearing loss, Epistaxis, Sinus Pain Respiratory: COMPLAINS OF: Cough, Sputum production, Shortness of breath, DENIES: Apneas, Wheezing, Hemoptysis Cardiovascular: DENIES: Chest pain, Palpitations, Dyspnea on Exertion, Lower Extremity Edema Gastrointestinal: COMPLAINS OF: Abdominal pain, Constipation, Difficulty Swallowing, Dyspepsia or heartburn, DENIES: Black stools, Bloody stools, Diarrhea, Nausea, Vomiting Genitourinary: COMPLAINS OF: Hematuria, Dysuria, DENIES: Urinary frequency, Urinary incontinence Musculoskeletal: COMPLAINS OF: Joint pain, Neck pain Hematologic/Lymphatics: DENIES: Bruising Immunologic/Allergic: DENIES: Eczema Neurologic: COMPLAINS OF: Abnormal gait, Headache, Localized weakness (Right sided weakness post stroke.), DENIES: Seizures Psychiatric: COMPLAINS OF: Confusion, Agitation, DENIES: Anxiety, Depression, Hallucinations, Suicidal Ideation, Homicidal Ideation Past Family Social History Coded Allergies: Sulfa (Sulfonamide Antibiotics) (Verified Allergy, Intermediate, 12/28/16) hives Penicillins (Verified Allergy, Unknown, 12/28/16) childhood reaction unknown Past Medical History * Multiple sclerosis on Aubagio. * History of bilateral lower extremity DVT and PE on Xarelto. * Hyperlipidemia. * prior stroke * Diverticulosis . Past Surgical History * History of traumatic laceration of of the nose 3 years with plastic surgery. * Lasik surgery to both eyes Reported Medications Pre-hospital medications included the following: Aubagio (Teriflunomide) 14 Mg Tab 14 Mg PO DAILY Xarelto (Rivaroxaban) 15 Mg Tab 15 Mg PO DAILY . Current Medications Medications (Trade) Dose Ordered Sig/Marilin Route Start Time Stop Time Status Last Admin (Narcan Inj) 0.4 mg UNSCH PRN IV PUSH 01/05/17 21:00 Metronidazole 100 ml @ 100 mls/hr Q8H IV 01/05/17 22:00 01/08/17 05:25 Methylprednisolone Sodium Succinate 250 mg/Dextrose 100 ml @ 104 mls/hr Q6HR IV 01/05/17 23:00 01/08/17 13:36 (Milk Of Magnesia Liq) 30 ml DAILY PRN PO 01/05/17 21:00 (Diflucan) 150 mg DAILY PO 01/06/17 09:00 01/07/17 10:10 (Fioricet 325-50-40) 1 tab Q8H PRN PO 01/05/17 21:00 (Blistex Lip [place]) 1 applic UNSCH PRN TOPICAL 01/05/17 21:00 (Aspirin Chew) 81 mg DAILY CHEW 01/06/17 09:00 01/07/17 10:10 (Pepcid) 20 mg BID PO 01/05/17 21:00 01/07/17 21:38 (Zofran Inj) 4 mg Q6HR PRN IV PUSH 01/05/17 21:00 (Pill Splitter) 1 ea UNSCH PRN OTHER 01/05/17 21:45 (NS Flush) 2 ml BID IV FLUSH 01/06/17 21:00 01/07/17 21:00 (NS Flush) 2 ml UNSCH PRN IV FLUSH 01/06/17 10:15 Sodium Chloride 1,000 ml @ 70 mls/hr [id number] IV 01/06/17 10:00 01/08/17 05:26 (Dulcolax Supp) 10 mg DAILY PRN RECTAL 01/06/17 12:00 ([place] 5-325 Mg) 1 tab Q4H PRN PO 01/06/17 17:30 01/08/17 05:26 Fluconazole/ Sodium Chloride 50 ml @ 50 mls/hr Q24H IV 01/07/17 09:00 01/08/17 08:40 (K-Lyte Cl Eff) 25 meq Q12HR PO 01/07/17 12:45 01/07/17 21:38 (K-Phos Neutral) 250 mg Q8HR PO 01/07/17 14:00 01/08/17 05:26 Levofloxacin/ Dextrose 100 ml @ 100 mls/hr Q24H IV 01/08/17 15:00 Clindamycin Phosphate 600 mg/ Sodium Chloride 104 ml @ 208 mls/hr Q8H IV 01/07/17 18:00 01/08/17 10:44 (Duoneb Neb) 1 ampule Q6HR WHILE AWAKE NEB NEB 01/07/17 20:00 01/08/17 08:09 Heparin Sodium/ Dextrose 250 ml @ 7 mls/hr TITRATE IV 01/07/17 19:45 01/08/17 02:38 (NovoLOG SUPPLEMENTAL SCALE) 1 ACHS SQ 01/07/17 21:00 01/08/17 12:00 (D50w (Vial) Inj) 50 ml UNSCH PRN IV PUSH 01/07/17 19:45 (Glucagon Inj) 1 mg UNSCH PRN OTHER 01/07/17 19:45 Potassium Chloride 40 meq/ Sodium Chloride 1,020 ml @ 42 mls/hr Q24H IV 01/08/17 12:00 Potassium Chloride 100 ml @ 50 mls/hr Q2H IV 01/08/17 11:30 01/08/17 15:29 01/08/17 12:48 Patient Own Medication PT OWN MED: (Teriflunomide (Aubagio)... DAILY PO 01/08/17 13:00 (Pyridium) 100 mg Q8H PRN PO 01/08/17 13:00 (B & O Supp) 60 mg Q6HR PRN RECTAL 01/08/17 13:00 (Jessi-Colace) 2 tab DAILY PO 01/08/17 13:15 . Family History Mother at age 45 from colon cancer. Father around age 97 of "old age. " Patient's sister has multiple sclerosis as well. No known family history of stroke. Two children alive and well. . Substance Use Tobacco: 10 pack year history stopping at age 31 Alcohol: Rare glass of wine. No history of abuse Prescription med abuse: No known hx of abuse. Illicits: No known use. . Psychosocial History Originally from [place] . Patient and her had been wintering in [place] for about 10 years. Moved to [place] permanently about 2013. Patient completed high school and some college. 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 Has been to , Abhinav, for 57 years. Two children. Carmen lives in [place], [place]. Blade lives in [place]. Carmen has one child, Blade has 2. Had been living at home with her prior to stroke. . . Spiritual/Cultural Factors Episcopalian and spirituality are very important to her. Member of [employer]. Her clergy has visited. Living Will: Copy in medical record Health Care Surrogate: Copy in medical record Durable Power of Tellers Supervisor: Copy in medical record Date completed: Living will, health care surrogate, durable power of attorney law clerk for health care completed on 1997 . Health Care Surrogate(s): The patient has designated her -- Abhinav Curiel -- as her primary surrogate.. Her duaghter Carmen Curiel is 1st alternate. Her son -- Abimael Curiel is second alternate. Documented care wishes: Patient has completed a [facility] living will. It indicates she would NOT want life prolonging measures should she have an "incurable or irreversible mental or physical condition with no reasonable expectation of recovery." . Today's verbally stated goals: Patient is unable to express her health care goals wishes verbally because of her expressive dysphasia. . Family/friends goals: Patient's , daughter , and son feel they know her wishes well and inform me that she has had multiple conversations with them on this topic. She would want doctors to try and resuscitate her one time. She would not want life support continued if it were felt she would be unable to interact with loved ones and would be totally dependent for care needs. However, she would want family involved in decision making before any withdrawal of life support. . Ethical and Legal Issues Patient has completed advance directives in the [facility]. [place] statutes indicate that out of state advance directives should be honored. . Physical Exam Vital Signs Date Time Temp Pulse Resp B/P (MAP) Pulse Ox O2 Delivery O2 Flow Rate FiO2 01/08/17 12:00 97.3 98 20 150/75 (100) 95 01/08/17 08:11 93 Nasal Cannula 4.00 01/08/17 08:00 97.3 104 20 163/89 (113) 95 01/08/17 05:55 98.1 101 18 175/96 (122) 91 01/08/17 01:33 98.3 84 19 150/86 (107) 94 01/07/17 23:00 84 01/07/17 22:00 84 01/07/17 21:44 97.3 99 18 162/89 (113) 89 01/07/17 19:49 94 Nasal Cannula 4.00 01/07/17 16:39 97.4 99 16 167/93 (117) 90 . 01/08/17 01/09/17 19:00 07:00 Intake Total 50 ml Balance 50 ml Intake IV Total 50 ml . Exam CONSTITUTIONAL/GENERAL: This is a thin patient. She is awake, alert. She has difficulty seeing. She is verbal but can't find words and easily derails. She can follow some simple commands but tries to move her hands when I ask her to wiggle her toes. TUBES/LINES/DRAINS: Peripheral IVs, abernathy catheter; 02 via nasal catheter. SKIN: No jaundice, rashes, or lesions. Ecchymoses on upper extremities. No wounds seen anteriorly. Skin temperature appropriate. Not diaphoretic. HEAD: Atraumatic. Normocephalic. EYES: Pupils equal and round and reactive. Has difficulty seeing. Extraocular motions intact. No scleral icterus. No injection or drainage. Fundi not examined. ENT: Hearing grossly normal. Nose without bleeding or purulent drainage. Throat without visible erythema, exudates, masses, or lesions. NECK: Trachea midline. Supple, nontender. No palpable thyroid enlargement or nodularity. CARDIOVASCULAR: Regular rate and rhythm without murmurs, gallops, or rubs. No JVD. Peripheral pulses symmetric. RESPIRATORY/CHEST: Symmetric, unlabored respirations. Clear to auscultation. Breath sounds equal bilaterally. No wheezes, rales, or rhonchi. GASTROINTESTINAL: Abdomen soft, non-tender, nondistended. No hepato-splenomegaly , or palpable masses. No guarding. Bowel sounds present. GENITOURINARY: Without palpable bladder distension. Abernathy catheter in place. MUSCULOSKELETAL: Extremities without clubbing, cyanosis, or edema. No joint tenderness or effusion noted. No calf tenderness. No mottling or clubbing. LYMPHATICS: No palpable cervical or supraclavicular adenopathy. NEUROLOGICAL: Awake and alert. Follows some simple commands. When I ask her to wiggle her toes she continuously tries to move hands even if I prompt her by moving her toes for her. Weakness worse on right side. Expressive dysphasia. PSYCHIATRIC: No obvious anxiety/depression. No apparent hallucinations or other psychotic thought process. . Diagnostic Tests Laboratory Laboratory Tests Test 01/06/17 12:59 01/06/17 21:12 01/07/17 03:39 01/07/17 08:54 Hemoglobin A1c 5.3 % (4.3-6.0) White Blood Count 12.1 TH/MM3 (4.0-11.0) Red Blood Count 3.66 MIL/MM3 (4.00-5.30) Hemoglobin 11.3 GM/DL (11.6-15.3) Hematocrit 34.0 % (35.0-46.0) Mean Corpuscular Volume 92.8 FL (80.0-100.0) Mean Corpuscular Hemoglobin 30.8 PG (27.0-34.0) Mean Corpuscular Hemoglobin Concent 33.2 % (32.0-36.0) Red Cell Distribution Width 14.5 % (11.6-17.2) Platelet Count 214 TH/MM3 (150-450) Mean Platelet Volume 9.3 FL (7.0-11.0) Neutrophils (%) (Auto) 93.4 % (16.0-70.0) Lymphocytes (%) (Auto) 2.5 % (9.0-44.0) Monocytes (%) (Auto) 4.0 % (0.0-8.0) Eosinophils (%) (Auto) 0.0 % (0.0-4.0) Basophils (%) (Auto) 0.1 % (0.0-2.0) Neutrophils # (Auto) 11.3 TH/MM3 (1.8-7.7) Lymphocytes # (Auto) 0.3 TH/MM3 (1.0-4.8) Monocytes # (Auto) 0.5 TH/MM3 (0-0.9) Eosinophils # (Auto) 0.0 TH/MM3 (0-0.4) Basophils # (Auto) 0.0 TH/MM3 (0-0.2) CBC Comment DIFF FINAL Differential Comment Erythrocyte Sedimentation Rate 5 mm/hr (0-30) Prothrombin Time 27.5 SEC (9.8-11.6) Prothromb Time International Ratio 2.4 RATIO Activated Partial Thromboplast Time 27.6 SEC (24.3-30.1) 27.4 SEC (24.3-30.1) Blood Urea Nitrogen 32 MG/DL (7-18) 34 MG/DL (7-18) Creatinine 0.47 MG/DL (0.50-1.00) 0.50 MG/DL (0.50-1.00) Random Glucose 140 MG/DL (74-106) 172 MG/DL (74-106) Total Protein 5.8 GM/DL (6.4-8.2) Albumin 3.0 GM/DL (3.4-5.0) Calcium Level 8.4 MG/DL (8.5-10.1) 8.4 MG/DL (8.5-10.1) Phosphorus Level 1.5 MG/DL (2.5-4.9) Magnesium Level 2.2 MG/DL (1.5-2.5) Alkaline Phosphatase 125 U/L (45-117) Aspartate Amino Transf (AST/SGOT) 52 U/L (15-37) Alanine Aminotransferase (ALT/SGPT) 45 U/L (10-53) Total Bilirubin 0.7 MG/DL (0.2-1.0) Sodium Level 143 MEQ/L (136-145) 145 MEQ/L (136-145) Potassium Level 3.0 MEQ/L (3.5-5.1) 2.9 MEQ/L (3.5-5.1) Chloride Level 110 MEQ/L (98-107) 112 MEQ/L (98-107) Carbon Dioxide Level 24.2 MEQ/L (21.0-32.0) 23.2 MEQ/L (21.0-32.0) Anion Gap 9 MEQ/L (5-15) 10 MEQ/L (5-15) Estimat Glomerular Filtration Rate 129 ML/MIN (>89) 120 ML/MIN (>89) C-Reactive Protein LESS THAN 0.29 MG/DL Anti-Nuclear Antibody Screen NEG (NEG) Triglycerides Level 149 MG/DL (42-150) Cholesterol Level 242 MG/DL (120-200) LDL Cholesterol 150 MG/DL (0-99) HDL Cholesterol 61.8 MG/DL (40.0-60.0) Cholesterol/HDL Ratio 3.91 RATIO Test 01/07/17 08:56 01/07/17 23:42 01/08/17 08:14 White Blood Count 12.5 TH/MM3 (4.0-11.0) 9.6 TH/MM3 (4.0-11.0) Red Blood Count 3.81 MIL/MM3 (4.00-5.30) 3.61 MIL/MM3 (4.00-5.30) Hemoglobin 11.8 GM/DL (11.6-15.3) 11.1 GM/DL (11.6-15.3) Hematocrit 35.3 % (35.0-46.0) 33.4 % (35.0-46.0) Mean Corpuscular Volume 92.7 FL (80.0-100.0) 92.5 FL (80.0-100.0) Mean Corpuscular Hemoglobin 30.9 PG (27.0-34.0) 30.7 PG (27.0-34.0) Mean Corpuscular Hemoglobin Concent 33.3 % (32.0-36.0) 33.2 % (32.0-36.0) Red Cell Distribution Width 14.0 % (11.6-17.2) 14.5 % (11.6-17.2) Platelet Count 211 TH/MM3 (150-450) 191 TH/MM3 (150-450) Mean Platelet Volume 9.8 FL (7.0-11.0) 9.7 FL (7.0-11.0) Prothrombin Time 31.7 SEC (9.8-11.6) Prothromb Time International Ratio 2.7 RATIO Activated Partial Thromboplast Time 27.6 SEC (24.3-30.1) 27.6 SEC (24.3-30.1) Blood Urea Nitrogen 36 MG/DL (7-18) Creatinine 0.51 MG/DL (0.50-1.00) Random Glucose 184 MG/DL (74-106) Calcium Level 8.3 MG/DL (8.5-10.1) Sodium Level 149 MEQ/L (136-145) Potassium Level 2.7 MEQ/L (3.5-5.1) Chloride Level 115 MEQ/L (98-107) Carbon Dioxide Level 24.4 MEQ/L (21.0-32.0) Anion Gap 10 MEQ/L (5-15) Estimat Glomerular Filtration Rate 118 ML/MIN (>89) Triglycerides Level 200 MG/DL (42-150) Cholesterol Level 233 MG/DL (120-200) LDL Cholesterol 134 MG/DL (0-99) HDL Cholesterol 59.5 MG/DL (40.0-60.0) Cholesterol/HDL Ratio 3.91 RATIO . Result Diagram: 01/07/17 2342 01/08/17 0814 Imaging Last Impressions Head CT 01/07/17 0000 Signed Impressions: Service Date/Time: Saturday, January 07, 2017 09:43 - CONCLUSION: 1. Multiple evolving bilateral cerebral infarcts involving both anterior and posterior circulation territories, as above. Differential considerations include embolism or vasculitis. 2. No significant intercurrent hemorrhage, herniation, or hydrocephalus. German Bloom MD Chest X-Ray 01/07/17 0000 Signed Impressions: Service Date/Time: Saturday, January 07, 2017 19:29 - CONCLUSION: Worsening consolidation or mass in the left mid lung and perihilar region. Continued followup is recommended. The patient recently had a CT examination of the chest. Barry Edward MD Neck CTA 01/06/17 0000 Signed Impressions: Service Date/Time: Friday, January 06, 2017 19:10 - CONCLUSION: Normal CTA carotids. David Jordan MD Brain MRI 01/06/17 0000 Signed Impressions: Service Date/Time: Friday, January 06, 2017 18:49 - CONCLUSION: 1. Acute nonhemorrhagic infarction in the right MCA WEIGHT TESTER watershed zone. 2. Subacute infarctions with possible subacute blood products in the left occipital and left suprasylvian parietal region. 3. Subacute infarction in the right posterior insula without evidence of blood products. David Jordan MD . Patient/Family Conference Present at Family Conference: Abhinav Curiel (spouse and primary health care surrogate); Carmen Curiel ( daughter and 1st alternate health care surrogate); Blade John (son and 2nd alternate health care surrogate). . Family Conference Time (mins): 55 Family Conference Location: Consult Room Issues Discussed: * Palliative care role, purpose, approach * Additional medical, psychosocial, and spiritual history * Patients general health, functional status, and cognitive changes in the months leading up to the current hospitalization * Family understanding of the current medical problems * Family understanding of prognosis * Patients goals of care as best understood from advance directives and/or conversations and/or values * Current medical treatment options and benefits/burdens of those options * Questions answered to the best of my ability * Palliative care contact information provided . Assessment and Plan Disease Oriented Problem List: (1) Bilateral cerebral infarction due to occlusion of precererbral artery Comment: Located in both anterior and posterior circulation territories. Probably embolic. . (2) Pneumonia (3) Multiple sclerosis Comment: Diagnosed 2013 (4) Hx pulmonary embolism (5) History of DVT (deep vein thrombosis) Symptom Scale: (1) Pain 0-10 Scale: Unable to quantify Comment: Has reported occasional "nerve pain" on the right side of her neck. (2) Dyspnea 0-10 Scale: Unable to quantify Comment: Dyspnea is secondary to her aspiration pneumonia. Anticipate improvement as the infection as treated unless there are recurrent aspirations. . (3) Confusion 0-10 Scale: Unable to quantify Comment: Confusion is intermittent. She has expressive dysphasia so she probably understands many things but cannot explain what she does or doesn't understand. . Pertinent Non-Medical Issues Psychosocial: of 58 years is having a difficult time. Daughter Carmen lives in [place]; Son Blade lives in [place]. Spiritual: Episcopalian and spirituality are very important to her. Member of [facility] [employer]. Her clergy has visited. Legal: Advance directives are from [place] but should be honored under [place] law. Ethical issues impacting care: Due to her expressive dysphasia and intermittent confusion, recommend at least shared decision making. . Important Contacts * Abhinav Curiel (spouse and DPOA for health care) [phone] . Prognosis Patient has underlying MS that has been stabilized. She has had 3 thrombotic strokes of uncertain etiology. They appear to be embolic, but source of emboli has not been found. If further strokes can be prevented, and with rehab she is able to gain some neurological function, then she could live years. If there are further strokes, if she remains with dysphagia; if she remains primarily bedbound, then life expectancy will be much shorter. Current goals remain aggressive so patient is not hospice eligible at this time. . Code Status: Full Code Plan == Code Status: FULL CODE. Patient has told her family that she would like one attempt at resuscitation if necessary. == Decision making: Patient has difficulty with speech and following commands. I would recommend that she not be permitted to make health care decisions independently at this time. I would recommend at least shared decision making with her surrogate. Her advance directives indicate that should she be incapacitated she has designated her -- Abhinav Curiel -- as her primary surrogate.. Her daughter Carmen Curiel is 1st alternate. Her son -- Abimael Curiel is second alternate. == Goals of medical treatment. Patient wants to continue seeking aggressive care at this time and her family supports this. She wants to see if she can improve with rehab. Her multiple sclerosis had been stable, so if the doctors can prevent further strokes and if she can get even some neurological improvement from her current strokes, she would find her quality of life worth fighting for. == Symptoms * Pain: FAmily reports that patient had no pre-stroke pain syndromes. She rarely complains of pain now. The only discomfort she often complains about is the sense that she needs to urinate (abernathy is in place). Other possible sources of discomfort include prolonged bedbound status; IVs. Patient has an order for hydrocodone which she has not needed so far. No further recommendations at this time. * Dysphagia: This is from her stroke. Speech therapy is following. [place] thick diet has been ordered. Patient wants to drink regular water and is upset that she cannot. No further recommendations at this time. * Dyspnea: Secondary to her aspiration pneumonia. On antibiotics; has neb orders; getting supplemental 02 as needed. No further recommendations at this time. * Constipation: Bowels moved 01/08/17. Has an adequate bowel protocol in place. No further recommendations at this time. * Bladder spasm vs dysuria: B&O suppository and pyridium have been ordered. No further recommendation at this time. * Expressive dysphasia; Patient is very frustrated about her inability to communicate. * Right sided hemiplegia. 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 Uncertain how much, if any, will return. * Confusion: Has intermittent confusion secondary to the stroke. Because she cannot express herself, it is sometimes hard to differentiate confusion from dysphasia. == Will scan advanced directive into EMR. == Family was grateful for palliative care consultation, however, they expressed concerns about costs of ongoing visits. They choose to call palliative care when needed rather than have us follow on an ongoing basis. Please let us know if there is a significant setback. . Time Spent Total Floor Time (mins): 90 (Total floor time included chart review, patient exam, above referenced family meeting, and documentation.) Face to Face Time (mins): 10 (Face to face time with patient was 10 minutes. Face to face time with family was 50 minutes. ) >50% Counseling/Coord of Care: Yes Thank you for the opportunity to participate in the care of Ms. Curiel. . Attestation To help prompt me to consider important information that might be impacting today's encounter and assessment, information from prior notes written by myself or my colleagues may have been "brought forward" into today's note. My signature on this note, however, is an attestation that I personally performed the exam, history, and/or decision-making noted today, and, unless otherwise indicated, the interactions with patient, family, and staff as well as the review of records all occurred today. I also attest that the listed assessment and stated plan reflect my best clinical judgment today based on the combination of historical information, prior notes, and today's exam/ interactions. When time spent is documented, it refers only to time spent today by the signer, or if indicated, combined time spent today by collaborating physician/nurse practitioner. . Michele Apple MD Jan 08, 2017 15:21
[2017-01-08] MEDS: TERIFLUNOMIDE 14 MG PO SCH (15:50)
[2017-01-08 16:08] LABS: HEMOGLOBIN A1a 1.3 %; HEMOGLOBIN A1b 1.9 %; HEMOGLOBIN Ao 84.5 %; HEMOGLOBIN LA1C 2.6 %; HEMOGLOBIN P3 4.2 %
[2017-01-08] MEDS: LEVOFLOXACIN 500 MG PREMIX INJ 100 ML IV SCH (16:54)
[2017-01-08 17:57] LABS: AUTOMATED NEUTROPHIL # 7.7 TH/MM3 (1.8-7.7); BASOPHIL % 0.2 % (0.0-2.0); HEMATOCRIT 34.1 % (35.0-46.0); HEMO FLAGS DIFF FINAL; LYMPH % 1.7 % (9.0-44.0); LYMPHOCYTE # 0.1 TH/MM3 (1.0-4.8); MEAN CELL VOLUME 92.6 FL (80.0-100.0); MEAN CORPUSCULAR HEMOGLOBIN 30.4 PG (27.0-34.0); MEAN CORPUSCULAR HGB CONC 32.9 % (32.0-36.0); MONO % 4.1 % (0.0-8.0); PLATELET COUNT 188 TH/MM3 (150-450); RED BLOOD COUNT 3.68 MIL/MM3 (4.00-5.30); RED CELL DISTRIBUTION WIDTH 14.7 % (11.6-17.2); WHITE BLOOD COUNT 8.2 TH/MM3 (4.0-11.0)
[2017-01-08 18:19] LABS: APTT (PATIENT) 71.1 SEC (24.3-30.1)
[2017-01-08 20:11] LABS: APTT (PATIENT) 95.9 SEC (24.3-30.1)
--- NOTE | 2017-01-08 20:18 | HHI.PR ---
Subjective Remarks Awake and on O2 2 L. Talks better. On Antibiotics. No fever Objective Vital Signs Date Time Temp Pulse Resp B/P (MAP) Pulse Ox O2 Delivery O2 Flow Rate FiO2 01/08/17 19:02 92 Nasal Cannula 4.00 01/08/17 16:00 97.6 94 20 147/83 (104) 91 01/08/17 12:00 97.3 98 20 150/75 (100) 95 01/08/17 08:11 93 Nasal Cannula 4.00 01/08/17 08:00 97.3 104 20 163/89 (113) 95 01/08/17 05:55 98.1 101 18 175/96 (122) 91 01/08/17 01:33 98.3 84 19 150/86 (107) 94 01/07/17 23:00 84 01/07/17 22:00 84 01/07/17 21:44 97.3 99 18 162/89 (113) 89 I/O 01/07/17 01/07/17 01/07/17 01/08/17 01/08/17 01/08/17 07:00 15:00 23:00 07:00 15:00 23:00 Intake Total 950 ml 100 ml 50 ml 304 ml Output Total 750 ml 300 ml 800 ml 1000 ml Balance -750 ml 650 ml -700 ml 50 ml -696 ml Intake IV Total 950 ml 100 ml 50 ml 304 ml Output Urine Total 750 ml 300 ml 800 ml 1000 ml # Bowel Movements 1 Result Diagram: 01/08/17 1738 01/08/17 0814 Objective Remarks GENERAL: This thinly built elderly white female who is pale and laying flat but no acute distress. HEENT: Head normocephalic. Pupils reactive. Tongue was moist. Throat is clear. NECK: Supple. No bruits or thyroid enlargement or lymphadenopathy. CHEST: Decreased breath sounds at the bases with occasional crackles at the lung bases on the right side.Occ wheeze HEART: The heart sounds are regular S1-S2. No murmur. No S3. ABDOMEN: Soft, scaphoid without masses. No organomegaly or tenderness. Bowel sounds are active. EXTREMITIES: Reveal no edema. NEUROLOGIC: The patient does move her extremities with minimal weakness. The patient's speech is somewhat hesitant and she is answering some questions appropriately. SKIN: Dry and cool. Assessment and Plan Assessment and Plan IMPRESSION 1. Aspiration pneumonia with hypoxemia. 2. Expressive aphagia. 3. History of cerebrovascular accident. 4. History of pulmonary emboli. 5. Dysphagia with aspiration. 6. Hypertension. Plan : 1. Continue O2 at 4 L. 2. Nebstid , duoneb. 3. Continue antibiotics. 4. Chest Xray ,BMP. 5. Replace Potassium. 6. PT evaluation Delfin Murcia MD Jan 08, 2017 20:18
--- NOTE | 2017-01-08 21:03 | HHI.PR ---
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 Now with what is a new right posterior parietal-occipital cva--most likely embolic. No definite hemorrhage on todays CT. MRI is more sensitive for picking up petechial hemorrhage Multiple sclerosis Plan close neurochecks in hospital b/o recent recurrent cva. continue solumedrol for MS continue anticoagulation with iv heparin. 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 Diagnosis/Plan: Subjective Subjective Comments No acute events reported Active Medications Current Medications Medications (Trade) Dose Ordered Sig/Marilin Route Start Time Stop Time Status Last Admin (Narcan Inj) 0.4 mg UNSCH PRN IV PUSH 01/05/17 21:00 Metronidazole 100 ml @ 100 mls/hr Q8H IV 01/05/17 22:00 01/08/17 15:36 Methylprednisolone Sodium Succinate 250 mg/Dextrose 100 ml @ 104 mls/hr Q6HR IV 01/05/17 23:00 01/08/17 18:44 (Milk Of Magnesia Liq) 30 ml DAILY PRN PO 01/05/17 21:00 (Diflucan) 150 mg DAILY PO 01/06/17 09:00 01/07/17 10:10 (Fioricet 325-50-40) 1 tab Q8H PRN PO 01/05/17 21:00 (Blistex Lip [place]) 1 applic UNSCH PRN TOPICAL 01/05/17 21:00 (Aspirin Chew) 81 mg DAILY CHEW 01/06/17 09:00 01/07/17 10:10 (Pepcid) 20 mg BID PO 01/05/17 21:00 01/07/17 21:38 (Zofran Inj) 4 mg Q6HR PRN IV PUSH 01/05/17 21:00 (Pill Splitter) 1 ea UNSCH PRN OTHER 01/05/17 21:45 (NS Flush) 2 ml BID IV FLUSH 01/06/17 21:00 01/07/17 21:00 (NS Flush) 2 ml UNSCH PRN IV FLUSH 01/06/17 10:15 Sodium Chloride 1,000 ml @ 70 mls/hr [id number] IV 01/06/17 10:00 01/08/17 05:26 (Dulcolax Supp) 10 mg DAILY PRN RECTAL 01/06/17 12:00 ([place] 5-325 Mg) 1 tab Q4H PRN PO 01/06/17 17:30 01/08/17 05:26 Fluconazole/ Sodium Chloride 50 ml @ 50 mls/hr Q24H IV 01/07/17 09:00 01/08/17 08:40 (K-Lyte Cl Eff) 25 meq Q12HR PO 01/07/17 12:45 01/07/17 21:38 (K-Phos Neutral) 250 mg Q8HR PO 01/07/17 14:00 01/08/17 14:00 Levofloxacin/ Dextrose 100 ml @ 100 mls/hr Q24H IV 01/08/17 15:00 01/08/17 16:54 Clindamycin Phosphate 600 mg/ Sodium Chloride 104 ml @ 208 mls/hr Q8H IV 01/07/17 18:00 01/08/17 18:03 (Duoneb Neb) 1 ampule Q6HR WHILE AWAKE NEB NEB 01/07/17 20:00 01/08/17 19:02 Heparin Sodium/ Dextrose 250 ml @ 7 mls/hr TITRATE IV 01/07/17 19:45 01/08/17 02:38 (NovoLOG SUPPLEMENTAL SCALE) 1 ACHS SQ 01/07/17 21:00 01/08/17 17:00 (D50w (Vial) Inj) 50 ml UNSCH PRN IV PUSH 01/07/17 19:45 (Glucagon Inj) 1 mg UNSCH PRN OTHER 01/07/17 19:45 Potassium Chloride 40 meq/ Sodium Chloride 1,020 ml @ 42 mls/hr Q24H IV 01/08/17 12:00 Patient Own Medication PT OWN MED: (Teriflunomide (Aubagio)... DAILY PO 01/08/17 13:00 01/08/17 15:50 (Pyridium) 100 mg Q8H PRN PO 01/08/17 13:00 (B & O Supp) 60 mg Q6HR PRN RECTAL 01/08/17 13:00 (Jessi-Colace) 2 tab DAILY PO 01/08/17 13:15 Allergies Allergies Coded Allergies Sulfa (Sulfonamide Antibiotics) (Verified Allergy, Intermediate, 12/28/16) Penicillins (Verified Allergy, Unknown, 12/28/16) Exam I&O / VS 01/08/17 01/08/17 01/09/17 15:00 23:00 07:00 Intake Total 50 ml 304 ml Output Total 1000 ml Balance 50 ml -696 ml Intake IV Total 50 ml 304 ml Output Urine Total 1000 ml # Bowel Movements 1 Vital Signs Date Time Temp Pulse Resp B/P (MAP) Pulse Ox O2 Delivery O2 Flow Rate FiO2 01/08/17 20:47 94.5 80 18 140/77 (98) 95 01/08/17 19:02 92 Nasal Cannula 4.00 01/08/17 16:00 97.6 94 20 147/83 (104) 91 01/08/17 12:00 97.3 98 20 150/75 (100) 95 01/08/17 08:11 93 Nasal Cannula 4.00 01/08/17 08:00 97.3 104 20 163/89 (113) 95 01/08/17 05:55 98.1 101 18 175/96 (122) 91 01/08/17 01:33 98.3 84 19 150/86 (107) 94 01/07/17 23:00 84 01/07/17 22:00 84 01/07/17 21:44 97.3 99 18 162/89 (113) 89 Respiratory: Lungs CTA, Non-labored respirations, BS equal, Coarse breath sounds Cardiology: Normal rate, Normal peripheral perfusion, Regular Rhythm Musculoskeletal: ROM, Swelling Exam Comments alert today, follows commands. PERRL EOM intact Right umn cn 7 palsey 4/5 RUE. 5/5 LUE Objective Micro and Labs Laboratory Tests Test 01/07/17 23:42 01/08/17 08:14 01/08/17 17:38 01/08/17 19:02 White Blood Count 9.6 8.2 Red Blood Count 3.61 3.68 Hemoglobin 11.1 11.2 Hematocrit 33.4 34.1 Mean Corpuscular Volume 92.5 92.6 Mean Corpuscular Hemoglobin 30.7 30.4 Mean Corpuscular Hemoglobin Concent 33.2 32.9 Red Cell Distribution Width 14.5 14.7 Platelet Count 191 188 Mean Platelet Volume 9.7 9.6 Prothrombin Time 31.7 Prothromb Time International Ratio 2.7 Activated Partial Thromboplast Time 27.6 27.6 71.1 95.9 Hemoglobin A1c 5.4 Blood Urea Nitrogen 36 Creatinine 0.51 Random Glucose 184 Calcium Level 8.3 Sodium Level 149 Potassium Level 2.7 Chloride Level 115 Carbon Dioxide Level 24.4 Anion Gap 10 Estimat Glomerular Filtration Rate 118 Triglycerides Level 200 Cholesterol Level 233 LDL Cholesterol 134 HDL Cholesterol 59.5 Cholesterol/HDL Ratio 3.91 Neutrophils (%) (Auto) 94.0 Lymphocytes (%) (Auto) 1.7 Monocytes (%) (Auto) 4.1 Eosinophils (%) (Auto) 0.0 Basophils (%) (Auto) 0.2 Neutrophils # (Auto) 7.7 Lymphocytes # (Auto) 0.1 Monocytes # (Auto) 0.3 Eosinophils # (Auto) 0.0 Basophils # (Auto) 0.0 CBC Comment DIFF FINAL Differential Comment Philip Fountain PhD Jan 08, 2017 21:03
[2017-01-08 23:05] LABS: APTT (PATIENT) 93.8 SEC (24.3-30.1)
[2017-01-09] VITALS (7 sets, daily range): BP systolic 143–162; BP diastolic 70–92; PULSE 68–101; RESP 20–24; TEMP 97.2–98.5; O2SAT 92–98
[2017-01-09] MEDS: methylPREDNISolone SO SUCC INJ 250 MG in DEXTROSE 5% IN WATER 100ML INJ 100 ML IV SCH ×8 (00:03→18:05)
[2017-01-09 01:38] LABS: MEAN CELL VOLUME 91.4 FL (80.0-100.0); MEAN CORPUSCULAR HEMOGLOBIN 31.1 PG (27.0-34.0); MEAN CORPUSCULAR HGB CONC 34.1 % (32.0-36.0); PLATELET COUNT 182 TH/MM3 (150-450); RED BLOOD COUNT 3.39 MIL/MM3 (4.00-5.30); RED CELL DISTRIBUTION WIDTH 14.1 % (11.6-17.2); REVIEW FLAG FINAL; WHITE BLOOD COUNT 7.4 TH/MM3 (4.0-11.0)
[2017-01-09 01:50] LABS: APTT (PATIENT) 56.7 SEC (24.3-30.1)
[2017-01-09] MEDS: CLINDAMYCIN INJ 600 MG in SODIUM CHLORIDE 0.9% INJ 100 ML IV SCH ×3 (02:10→17:31)
[2017-01-09] MEDS: POTASSIUM PHOSPHATE/SODIUM PHOSPHATE 250 MG TAB PO SCH ×3 (05:39→21:07)
[2017-01-09] MEDS: metroNIDAZOLE 500 MG INJ 100 ML IV SCH ×3 (05:39→21:41)
--- NOTE | 2017-01-09 05:58 | MB ---
cc: LAMAR GUTIERREZ DATE OF 1940 DATE OF CONSULTATION 01/07/2017 REASON FOR CONSULTATION The patient has a history of left lower extremity DVT and pulmonary embolism who has now had multiple episodes of stroke. This is a 76-year-old female who has had a history of multiple sclerosis diagnosed in 2013 who is being treated under the care of neurologist, Dr. Fountain. In September of 2016 she developed bilateral lower extremity DVT and pulmonary embolism. She was admitted at [facility] in [place]. The patient was placed on anticoagulation with Xarelto. Subsequently she developed a thrombotic stroke on 12/21/2016. MRI showed an acute infarct in the left MCA distribution. There were multiple punctate foci in the left parietal, left occipital and left frontal lobes. She received medical management and was subsequently admitted to [facility]. Unfortunately she developed confusion and increased slurring of speech. She had a new MRI which showed additional stroke in the left WARP STARTER territory. Per Neurology's opinion this was embolic in nature. Xarelto was stopped and the patient was started on heparin anticoagulation. She has developed visual defect from occipital stroke. I have been consulted to make further recommendations regarding anticoagulation. The patient is alert and oriented. 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 Her son and are at bedside. Some of the history was obtained from them. The patient also has dysarthria. She has not had any episode of bleeding. REVIEW OF SYSTEMS A comprehensive 14-point review of systems was completed which is negative except as described in the HPI. PAST MEDICAL HISTORY 1. Multiple sclerosis. 2. History of bilateral lower extremity DVT and PE. 3. Hyperlipidemia. 4. Multiple strokes. 5. Diverticulosis. PAST SURGICAL HISTORY 1. History of traumatic laceration of the nose with plastic surgery. 2. LASIK surgery to both eyes. MEDICATIONS Prior to her hospital admission she was on - 1. Aubagio 14 mg p.o. daily. 2. Xarelto 15 mg p.o. daily. INPATIENT MEDICATIONS Reviewed. She is on heparin GTT. Remaining meds are documented in the EMR. ALLERGIES SULFA DRUGS. PENICILLIN. FAMILY HISTORY Significant for colon cancer. Her mother at age 45. History of multiple sclerosis. No history of blood disorders or recurrent DVT or pulmonary embolisms in the family. SOCIAL HISTORY She smoked cigarettes from age 21 to 31. She rarely drinks alcohol. No illicit drug use. No prescription drug use. She is . She has two children who live in [place]. PHYSICAL EXAMINATION VITAL SIGNS: Blood pressure is 159/86, pulse is in the 90s, temperature is 97.2, O2 sats are 95% on room air. GENERAL: Acutely ill patient who is elderly, weak and frail. She is awake and alert. She has vision defect and states that she is unable to see. HEENT: Pupils are equal, round, reactive to light. EOMI. No oral thrush. No oral lesions. NECK: Supple. No JVD, no bruits, no lymphadenopathy. CHEST: Clear to auscultation bilaterally. CARDIAC: S1-S2. Regular rate and rhythm. ABDOMEN: Soft, nontender, nondistended. Abdomen is soft, nontender, nondistended. Bowel sounds are present. EXTREMITIES: Without any edema, erythema or cyanosis. SKIN: Without any petechiae, lesion or bruises. LYMPHATICS: No palpable lymphadenopathy on exam. : She has a Beckman catheter in place. Neuro: Awake and alert. She follows commands. She has significant expressive dysphasia. She has right-sided weakness. PSYCHIATRIC: Mood and affect is appropriate. LABORATORY DATA WBC 12.1, hemoglobin 11.3, MCV 92.8, platelet count 214. Sodium is 143, potassium 3.0, chloride 110, CO2 24.2, BUN is 32, creatinine is 0.47, total protein is 5.8. CRP is less than 0.29. JAMARI is negative. IMAGING STUDIES CT of the head completed on January 07 which showed multiple evolving bilateral cerebral infarcts involving both anterior and posterior circulation territories. Chest x-ray from 01/07/2017 reviewed and has worsening consolidation in the left mid-lung. Neck CTA was reviewed did not show any occlusion. Brain MRI from 01/06/2017 was also reviewed. Acute non-hemorrhagic infarction in the right MCA/WARP STARTER watershed zone, subacute infarction with subacute blood products in the left occipital and left suprasylvian parietal region. ASSESSMENT AND PLAN This is a 76-year-old female with a history of multiple sclerosis, DVT and pulmonary embolism and has had recurrent strokes. 1. Patient with a history of recurrent strokes. History of bilateral DVT and pulmonary embolism. At this point I would recommend continued treatment with heparin GTT. She was on Xarelto when she developed recurrent strokes. She has had hematuria. However, this has resolved. I would recommend continued anticoagulation with Coumadin. She will need to be on heparin or Lovenox bridging for at least 72 hours until her INR is greater than 2. Goal of the INR would be between 2 and 3. This patient will require indefinite anticoagulation. We can obtain a hypercoagulable workup; however, it would not change the management. 2. History of multiple sclerosis. Thank you for allowing me to participate in the care of this patient. I will continue to follow this patient along. MD SANTOS Carlos/LORI /12:00 AM /5:30 AM
[2017-01-09] MEDS: RESP: ALBUTEROL 2.5 MG/IPRATROPIUM 0.5 MG NEB (SCH) NEB ×2 (08:00→19:13)
[2017-01-09] MEDS: INSULIN ASPART SUPPLEMENTAL SCALE SQ SCH ×4 (08:00→21:38)
[2017-01-09 08:26] LABS: APTT (PATIENT) 47.5 SEC (24.3-30.1)
[2017-01-09] MEDS: SODIUM CHLORIDE 0.9% FLUSH 5 ML FLUSH IV FLUSH SCH ×2 (09:00→20:35)
[2017-01-09] MEDS: DOCUSATE SODIUM 50 MG/SENNA 8.6 MG TAB PO SCH (09:39)
[2017-01-09] MEDS: FAMOTIDINE 20 MG TAB PO SCH ×2 (09:41→20:35)
[2017-01-09] MEDS: ASPIRIN 81 MG CHEW TAB CHEW SCH (09:41)
[2017-01-09] MEDS: FLUCONAZOLE 100 MG TAB PO SCH (09:41)
[2017-01-09] MEDS: TERIFLUNOMIDE 14 MG PO SCH (09:42)
[2017-01-09] MEDS: POTASSIUM CHLORIDE 25 MEQ EFFERVESCENT TAB PO SCH ×2 (09:43→20:41)
[2017-01-09] MEDS: FLUCONAZOLE 100 MG PREMIX BAG 50 ML IV SCH ×2 (10:00→10:01)
[2017-01-09 11:56] LABS: MAGNESIUM 2.2 MG/DL (1.5-2.5)
[2017-01-09] MEDS: SODIUM CHLOR 0.9% 1000 ML INJ 1,000 ML IV SCH (12:00)
[2017-01-09 12:01] LABS: ALKALINE PHOSPHATASE 128 U/L (45-117); ALT (GPT) 102 U/L (10-53); ANION GAP 6 MEQ/L (5-15); AST (GOT) 65 U/L (15-37); BICARBONATE 26.6 MEQ/L (21.0-32.0); BLOOD UREA NITROGEN 35 MG/DL (7-18); CHLORIDE 119 MEQ/L (98-107); GLOMERULAR FILTRATION RATE 108 ML/MIN (>89); SODIUM (NA) 152 MEQ/L (136-145); TOTAL BILIRUBIN ADULT 1.7 MG/DL (0.2-1.0)
[2017-01-09 12:04] LABS: POTASSIUM 2.9 MEQ/L (3.5-5.1)
[2017-01-09] MEDS ORDERED: POTASSIUM CHLOR 20 MEQ PREMIX 100 ML IV SCH (13:00)
--- NOTE | 2017-01-09 13:00 | HHI.PR ---
Subjective Remarks daughter and at bedside patient denies cp/sob Patient is awake and follows commands as per daughter there is edema in lower extremities also multiple bruises in upper extremities hematuria much improved K very low at 2.9 Objective Vitals Vital Signs Date Time Temp Pulse Resp B/P (MAP) Pulse Ox O2 Delivery O2 Flow Rate FiO2 01/09/17 12:12 97.7 89 20 144/75 (98) 96 01/09/17 08:00 97.9 92 20 143/78 (99) 93 01/09/17 06:01 97.2 86 20 153/92 (112) 98 01/09/17 00:54 97.2 68 24 158/75 (102) 95 01/08/17 23:31 84 01/08/17 20:47 94.5 80 18 140/77 (98) 95 01/08/17 19:02 92 Nasal Cannula 4.00 01/08/17 16:00 97.6 94 20 147/83 (104) 91 I/O 01/08/17 01/08/17 01/08/17 01/09/17 01/09/17 01/09/17 07:00 15:00 23:00 07:00 15:00 23:00 Intake Total 100 ml 50 ml 593 ml 400 ml 364 ml Output Total 800 ml 1000 ml 950 ml Balance -700 ml 50 ml -407 ml -550 ml 364 ml Intake IV Total 100 ml 50 ml 593 ml 400 ml 364 ml Output Urine Total 800 ml 1000 ml 950 ml # Voids 2 # Bowel Movements 1 2 Result Diagram: 01/09/17 0115 01/09/17 1117 Imaging Last Impressions Head CT 01/07/17 0000 Signed Impressions: Service Date/Time: Saturday, January 07, 2017 09:43 - CONCLUSION: 1. Multiple evolving bilateral cerebral infarcts involving both anterior and posterior circulation territories, as above. Differential considerations include embolism or vasculitis. 2. No significant intercurrent hemorrhage, herniation, or hydrocephalus. German Bloom MD Chest X-Ray 01/07/17 0000 Signed Impressions: Service Date/Time: Saturday, January 07, 2017 19:29 - CONCLUSION: Worsening consolidation or mass in the left mid lung and perihilar region. Continued followup is recommended. The patient recently had a CT examination of the chest. Barry Edward MD Neck CTA 01/06/17 0000 Signed Impressions: Service Date/Time: Friday, January 06, 2017 19:10 - CONCLUSION: Normal CTA carotids. David Jordan MD Brain MRI 01/06/17 0000 Signed Impressions: Service Date/Time: Friday, January 06, 2017 18:49 - CONCLUSION: 1. Acute nonhemorrhagic infarction in the right MCA CUSTOMER ACCOUNT MANAGER watershed zone. 2. Subacute infarctions with possible subacute blood products in the left occipital and left suprasylvian parietal region. 3. Subacute infarction in the right posterior insula without evidence of blood products. David Jordan MD Objective Remarks Patient is awake and alert, nonacute distress Seems to have difficulty seeing Lungs are clear Abdomen is soft, nontender nondistended Abernathy catheter in place with clearing hematuria. Mild nonpitting edema in bilateral lower extremities. More alert today, follows commands. PERRL EOM intact Right umn cn 7 palsey 3/5 RUE. 4/5 LUE right hemiparesia Procedures none Medications and IVs Current Medications Medications (Trade) Dose Ordered Sig/Marilin Route Start Time Stop Time Status Last Admin (Narcan Inj) 0.4 mg UNSCH PRN IV PUSH 01/05/17 21:00 Metronidazole 100 ml @ 100 mls/hr Q8H IV 01/05/17 22:00 01/09/17 14:10 Methylprednisolone Sodium Succinate 250 mg/Dextrose 100 ml @ 104 mls/hr Q6HR IV 01/05/17 23:00 01/09/17 12:01 (Milk Of Magnesia Liq) 30 ml DAILY PRN PO 01/05/17 21:00 (Diflucan) 150 mg DAILY PO 01/06/17 09:00 01/09/17 09:41 (Fioricet 325-50-40) 1 tab Q8H PRN PO 01/05/17 21:00 (Blistex Lip [place]) 1 applic UNSCH PRN TOPICAL 01/05/17 21:00 (Aspirin Chew) 81 mg DAILY CHEW 01/06/17 09:00 01/09/17 09:41 (Pepcid) 20 mg BID PO 01/05/17 21:00 01/09/17 09:41 (Zofran Inj) 4 mg Q6HR PRN IV PUSH 01/05/17 21:00 (Pill Splitter) 1 ea UNSCH PRN OTHER 01/05/17 21:45 (NS Flush) 2 ml BID IV FLUSH 01/06/17 21:00 01/09/17 09:00 (NS Flush) 2 ml UNSCH PRN IV FLUSH 01/06/17 10:15 (Dulcolax Supp) 10 mg DAILY PRN RECTAL 01/06/17 12:00 ([place] 5-325 Mg) 1 tab Q4H PRN PO 01/06/17 17:30 01/08/17 05:26 Fluconazole/ Sodium Chloride 50 ml @ 50 mls/hr Q24H IV 01/07/17 09:00 01/09/17 10:00 (K-Lyte Cl Eff) 25 meq Q12HR PO 01/07/17 12:45 01/09/17 09:43 (K-Phos Neutral) 250 mg Q8HR PO 01/07/17 14:00 01/09/17 14:10 Levofloxacin/ Dextrose 100 ml @ 100 mls/hr Q24H IV 01/08/17 15:00 01/09/17 15:08 Clindamycin Phosphate 600 mg/ Sodium Chloride 104 ml @ 208 mls/hr Q8H IV 01/07/17 18:00 01/09/17 11:14 (Duoneb Neb) 1 ampule Q6HR WHILE AWAKE NEB NEB 01/07/17 20:00 01/08/17 19:02 Heparin Sodium/ Dextrose 250 ml @ 7 mls/hr TITRATE IV 01/07/17 19:45 01/08/17 02:38 (NovoLOG SUPPLEMENTAL SCALE) 1 ACHS SQ 01/07/17 21:00 01/09/17 13:12 (D50w (Vial) Inj) 50 ml UNSCH PRN IV PUSH 01/07/17 19:45 (Glucagon Inj) 1 mg UNSCH PRN OTHER 01/07/17 19:45 Patient Own Medication PT OWN MED: (Teriflunomide (Aubagio)... DAILY PO 01/08/17 13:00 01/09/17 09:42 (Pyridium) 100 mg Q8H PRN PO 01/08/17 13:00 (B & O Supp) 60 mg Q6HR PRN RECTAL 01/08/17 13:00 (Jessi-Colace) 2 tab DAILY PO 01/08/17 13:15 01/09/17 09:39 Potassium Chloride 40 meq/ Sodium Chloride 38.5 meq/Sterile Water 1,029.625 ml @ 84 mls/hr [id number] IV 01/09/17 15:00 01/09/17 15:27 Potassium Chloride 100 ml @ 50 mls/hr Q2H IV 01/09/17 13:00 01/09/17 16:59 (Levemir Inj) 5 units Q12HR SQ 01/09/17 21:00 Urinary Catheter: Yes Assessment to: Continue Vascular Central Line Catheter: No A/P Problem List: (1) Encephalopathy acute ICD Code: G93.40 - Encephalopathy, unspecified (2) CVA (cerebral vascular accident) ICD Code: I63.9 - Cerebral infarction, unspecified Status: Acute (3) Pneumonia ICD Code: J18.9 - Pneumonia, unspecified organism (4) Hx pulmonary embolism ICD Code: Z86.711 - Personal history of pulmonary embolism Status: Chronic (5) UTI (urinary tract infection) ICD Code: N39.0 - Urinary tract infection, site not specified (6) Expressive aphasia ICD Code: R47.01 - Aphasia Status: Acute (7) Dysphagia ICD Code: R13.10 - Dysphagia, unspecified Status: Acute (8) Multiple sclerosis ICD Code: G35 - Multiple sclerosis Status: Chronic (9) HTN (hypertension) ICD Code: I10 - Essential (primary) hypertension (10) Hyperglycemia ICD Code: R73.9 - Hyperglycemia, unspecified (11) Hematuria ICD Code: R31.9 - Hematuria, unspecified (12) Elevated troponin ICD Code: R74.8 - Abnormal levels of other serum enzymes (13) Acute hypernatremia ICD Code: E87.0 - Hyperosmolality and hypernatremia Plan: Likely due to poor oral intake. Sodium trending up from 149 on 01/08 to152 on 01/09. The patient was started on half-normal saline plus KCl on 01/08, however sodium still trending up. I will see the patient to 04/11 NS + KCL. (14) Hypokalemia ICD Code: E87.6 - Hypokalemia Plan: Likely due to poor oral intake. Replaced orally and IV since admission. Potassium today is 2.9, I will replace with IV KCl 40 mEq IV 1. (15) Anemia ICD Code: D64.9 - Anemia, unspecified Plan: The patient is Hemoccult positive. I will continue to monitor hemoglobin is slowly trending down and now is 10.6. I will discuss with the family regarding consulting gastroenterology for possible colonoscopy and EGD. I will start the patient on PPI. Continue to monitor hemoglobin. Assessment and Plan (1) Encephalopathy acute ICD Code: G93.40 - Encephalopathy, unspecified Plan: Encephalopathy likely multifactorial secondary to new CVA as mentioned above in CT scan and secondary to UTI and aspiration pneumonia. CT of the head showed new left posterior CVA. Neurology consulted on following patient. Patient currently on aspirin and on Xarelto. I will hold Xarelto and place the patient on IV heparin drip given that the patient has hematuria. Encephalopathy seems to be resolving and much improved. The patient now can have a conversation and follows commands. Continue neurochecks. (2) CVA (cerebral vascular accident) Given that the patient has had a repeat stroke on anticoagulation I will consult hematology. I will also check for sedimentation rate, CRP, JAMARI and ANCA to rule out vasculitis. 01/07 MRI of the brain as described above shows an acute nonhemorrhagic infarction in the right MCA CUSTOMER ACCOUNT MANAGER watershed zone. It also shows subacute infarctions with possible subacute blood products in the left occipital and left suprasylvian parietal region. Subacute infarction in the right posterior insula without evidence of blood products. CT of the head ordered this morning it does not show any significant intercurrent hemorrhage, herniation or hydrocephalus. Heparin discontinued as per neurology recommendations. Will continue to hold now given hematuria which seems to be improving. Resume anticoagulation as per neurology recommendations and when hematuria resolves. Consult Pt/OT. 01/09 Continue IV heparin drip resumed as per neurology recommendations. Continue neurochecks. Ophthalmology consultation pending. (3) Pneumonia Plan: Ct chest as mentioned above shows a right upper lobe infiltrate and superior segment of the left lower lobe with nearly masslike focal airspace consolidation in the left lower lobe containing air bronchograms measuring 2.4 2.1 cm. Suspect aspiration pneumonia. Pulmonary consulted, recommended continuation of IV Levaquin and IV Flagyl and addition of IV clindamycin. Continue. (4) Hx pulmonary embolism Plan: Patient has history of bilateral lower extremity DVT and PE initially on Xarelto. However this has been discontinued secondary to hematuria and evidence of possible bladder and MRI which CT does not show. Monitor vital signs and oxygenation. (5) UTI (urinary tract infection) ICD Code: N39.0 - Urinary tract infection, site not specified Plan: Continue IV Levaquin. Patient now has hematuria. I will consult urology. Monitor hemoglobin if it drops then heparin will need to be placed on hold. Urine cultures growing gram-negative rods. HEENT IV Levaquin. Urology consulted. Recommendations appreciated. Will keep Abernathy to drainage until hematuria has completely resolved 24 hours. Urine culture is growing Escherichia coli which is pansensitive. 01/09 Hematuria resolved. Will DC abernathy in am. (6) Expressive aphasia Plan: Speech therapy consulted. 01/07 expressive aphasia seems to be improving, patient now able to communicate better. (7) Dysphagia Plan: Speech therapy recommended a pured diet with nectar consistency thickened liquids. (8) Multiple sclerosis Plan: Currently being treated with Solu-Medrol 250 mg IV every 6 hours. 01/07 continue management as per neurology. (9) HTN (hypertension) ICD Code: I10 - Essential (primary) hypertension Plan: Permissive hypertension for now. Hold antihypertensive medications. The patient previously on amlodipine. 01/09 Bp seems to be more stable. Continue to monitor BP. (10) Hyperglycemia ICD Code: R73.9 - Hyperglycemia, unspecified Plan: Likely steroid-induced. Continue SSI with insulin NovoLog and monitor Accu-Cheks. (11) Hematuria ICD Code: R31.9 - Hematuria, unspecified Plan: I will discontinue Xarelto and start the patient on IV heparin drip without bolus. Monitor hemoglobin every 6 hours and if it drops then consideration of discontinuation of heparin drip should be discussed. I discussed this in detail with the family since stopping anticoagulation could but the patient [place] records for further CVAs. 01/08 hemoglobin stable and hematuria improving. Continue to monitor CBC. Improving. (12) Elevated troponin ICD Code: R74.8 - Abnormal levels of other serum enzymes Plan: Patient's troponin is elevated 0.06, 0.07, I will check an EKG and consult cardiology. Echocardiogram pending. Suspect related to strokes. No chest pain. Echo shows normal systolic function, grade 1 diastolic function but no intracardiac thrombus reported. Discharge Planning PAtient still with hematuria. Will possibly DC abernathy in am and switch heparin to Lovenox SQ and Start coumadin. Problem Qualifiers (1) CVA (cerebral vascular accident): (2) HTN (hypertension): Qualified Codes: I10 - Essential (primary) hypertension (3) Anemia: Qualified Codes: D64.9 - Anemia, unspecified Shon Bernal MD Jan 09, 2017 13:00
[2017-01-09] MEDS: LEVOFLOXACIN 500 MG PREMIX INJ 100 ML IV SCH (15:08)
[2017-01-09] MEDS: POTASSIUM CHLORIDE INJ 40 MEQ, SODIUM CHLORIDE 23.4% INJ 38.5 MEQ in WATER STERILE FOR ... IV SCH (15:27)
[2017-01-09 15:54] LABS: MYELOPEROXIDASE LESS THAN 1.0 AI (<1.0); PROTEINASE-3 LESS THAN 1.0 AI (<1.0)
--- NOTE | 2017-01-09 18:06 | HHI.PR ---
Subjective Subjective Comments Family at bedside. Patient is anxious and concerned that she may be going back for MRI. Able to be calmed with reassurance. Appears to deny any pain complaints Allergies: Coded Allergies: Sulfa (Sulfonamide Antibiotics) (Verified Allergy, Intermediate, 12/28/16) hives Penicillins (Verified Allergy, Unknown, 12/28/16) childhood reaction unknown Review of Systems All other ROS: ROS reviewed as documented in chart Exam I&O / VS 01/09/17 01/09/17 01/10/17 15:00 23:00 07:00 Intake Total 1184 ml 200 ml Output Total 650 ml Balance 534 ml 200 ml Intake Oral 720 ml IV Total 464 ml 200 ml Output Urine Total 650 ml # Bowel Movements 1 Vital Signs Date Time Temp Pulse Resp B/P (MAP) Pulse Ox O2 Delivery O2 Flow Rate FiO2 01/09/17 16:00 98.5 87 20 162/77 (105) 98 01/09/17 12:12 97.7 89 20 144/75 (98) 96 01/09/17 08:00 97.9 92 20 143/78 (99) 93 01/09/17 08:00 96 01/09/17 06:01 97.2 86 20 153/92 (112) 98 01/09/17 00:54 97.2 68 24 158/75 (102) 95 01/08/17 23:31 84 01/08/17 20:47 94.5 80 18 140/77 (98) 95 01/08/17 19:02 92 Nasal Cannula 4.00 General: Mild distress (Anxious) Cardiovascular: Normal rate Musculoskeletal: ROM (Within functional limits), Swelling (None in distal lower extremities) Psychiatric: Cooperative Orientation: oriented to Self, oriented to Place, oriented to Situation (with cues), disoriented to Time Neurologic: Pupils (PERRLA; no light perception vision) Motor: Right Upper Extremity (4+/5), Left Upper Extremity (3/5), Right Lower Extremity (4+/5), Left Lower Extremity (3/5) Clonus: Negative Objective Micro and Labs Laboratory Tests Test 01/08/17 19:02 01/08/17 22:09 01/09/17 01:15 01/09/17 07:37 Activated Partial Thromboplast Time 95.9 93.8 56.7 47.5 White Blood Count 7.4 Red Blood Count 3.39 Hemoglobin 10.6 Hematocrit 31.0 Mean Corpuscular Volume 91.4 Mean Corpuscular Hemoglobin 31.1 Mean Corpuscular Hemoglobin Concent 34.1 Red Cell Distribution Width 14.1 Platelet Count 182 Mean Platelet Volume 10.4 Test 01/09/17 11:17 Blood Urea Nitrogen 35 Creatinine 0.55 Random Glucose 194 Total Protein 5.5 Albumin 3.0 Calcium Level 8.2 Alkaline Phosphatase 128 Aspartate Amino Transf (AST/SGOT) 65 Alanine Aminotransferase (ALT/SGPT) 102 Total Bilirubin 1.7 Sodium Level 152 Potassium Level 2.9 Chloride Level 119 Carbon Dioxide Level 26.6 Anion Gap 6 Estimat Glomerular Filtration Rate 108 Phosphorus Level 2.0 Magnesium Level 2.2 Date/Time Source Procedure Growth Status 01/09/17 11:05 Stool Stool Stool Occult Blood (MODESTA) - Final HEMOCCULT POSITIVE Complete Assessment and Plan Diagnosis: (1) CVA (cerebral vascular accident) ICD Codes: I63.9 - Cerebral infarction, unspecified Status: Acute Qualifiers: Laterality of affected vessel: bilateral Assessment 1. Bilateral infarcts including right MCA/WATER TECHNICIAN watershed zone, left occipital and suprasylvian region and right posterior insula with left hemiparesis and significant visual impairment 2. Multiple sclerosis 3. Hypertension 4. Previous DVT/PE 5. Pneumonia 6. UTI/left renal calculus: Urology recommending continued [place] until urinary is clear Plan 1. Speech therapy has evaluated swallow and tolerating pured diet with nectar thick liquids. Speech and cognition are being addressed 2. Physical therapy mobilizing and patient is now mod to max assist for transfers and min to mod assist of 2 to ambulate 8 feet with rolling walker. 3. Occupational therapy for ADLs and currently dependent. 4. Anticipate patient will need ongoing inpatient rehabilitation at discharge. Will follow in conjunction with case management 5. Will follow while hospitalized and at discharge is appropriate Lou Moriera MD Jan 09, 2017 18:05
--- NOTE | 2017-01-09 19:12 | HHI.PR ---
Subjective Remarks Awake and on O2 2 L. Seems stronger but speech still slurred. On Antibiotics. Doing PT No fever Objective Vital Signs Date Time Temp Pulse Resp B/P (MAP) Pulse Ox O2 Delivery O2 Flow Rate FiO2 01/09/17 16:00 98.5 87 20 162/77 (105) 98 01/09/17 12:12 97.7 89 20 144/75 (98) 96 01/09/17 08:00 97.9 92 20 143/78 (99) 93 01/09/17 08:00 96 01/09/17 06:01 97.2 86 20 153/92 (112) 98 01/09/17 00:54 97.2 68 24 158/75 (102) 95 01/08/17 23:31 84 01/08/17 20:47 94.5 80 18 140/77 (98) 95 I/O 01/08/17 01/08/17 01/08/17 01/09/17 01/09/17 01/09/17 07:00 15:00 23:00 07:00 15:00 23:00 Intake Total 100 ml 50 ml 593 ml 400 ml 1184 ml 454.5 ml Output Total 800 ml 1000 ml 950 ml 650 ml Balance -700 ml 50 ml -407 ml -550 ml 534 ml 454.5 ml Intake Oral 720 ml IV Total 100 ml 50 ml 593 ml 400 ml 464 ml 454.5 ml Output Urine Total 800 ml 1000 ml 950 ml 650 ml # Voids 2 # Bowel Movements 1 2 1 Result Diagram: 01/09/17 0115 01/09/17 1117 Objective Remarks GENERAL: This thinly built elderly white female who is pale and laying flat in no acute distress. HEENT: Head normocephalic. Pupils reactive. Tongue was moist. Throat is clear. NECK: Supple. No bruits or thyroid enlargement or lymphadenopathy. CHEST: Decreased breath sounds at the bases with occasional crackles at the lung bases on the right side. HEART: The heart sounds are regular S1-S2. No murmur. No S3. ABDOMEN: Soft, scaphoid without masses. No organomegaly or tenderness. Bowel sounds are active. EXTREMITIES: Reveal no edema. NEUROLOGIC: The patient does move her extremities with minimal weakness. The patient's speech is somewhat hesitant and she is answering some questions appropriately. SKIN: Dry and cool. Assessment and Plan Assessment and Plan IMPRESSION 1. Aspiration pneumonia with hypoxemia. 2. Expressive aphagia. 3. History of cerebrovascular accident. 4. History of pulmonary emboli. 5. Dysphagia with aspiration. 6. Hypertension. Plan : 1. Continue O2 at 2 L. 2. Nebs tid , duoneb. 3. Continue antibiotics. 4. CBC,BMP. 5. Replace Potassium. 6. PT evaluation Delfin Murcia MD Jan 09, 2017 19:12
--- NOTE | 2017-01-09 20:27 | HHI.PR ---
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 Now with what is a new right posterior parietal-occipital cva--most likely embolic. No definite hemorrhage on todays CT. MRI is more sensitive for picking up petechial hemorrhage Multiple sclerosis Plan continue solumedrol for MS for one more day (tomorrow is day 5) continue anticoagulation with iv heparin. Will require senior care oral anticoagulation--consider coumadin Diagnosis/Plan: Subjective Subjective Comments Pts family report she was showing signs of improvement today--able to sit in a chair with increase strength, improve alertness and eating Active Medications Current Medications Medications (Trade) Dose Ordered Sig/Marilin Route Start Time Stop Time Status Last Admin (Narcan Inj) 0.4 mg UNSCH PRN IV PUSH 01/05/17 21:00 Metronidazole 100 ml @ 100 mls/hr Q8H IV 01/05/17 22:00 01/09/17 14:10 Methylprednisolone Sodium Succinate 250 mg/Dextrose 100 ml @ 104 mls/hr Q6HR IV 01/05/17 23:00 01/09/17 18:05 (Milk Of Magnesia Liq) 30 ml DAILY PRN PO 01/05/17 21:00 (Diflucan) 150 mg DAILY PO 01/06/17 09:00 01/09/17 09:41 (Fioricet 325-50-40) 1 tab Q8H PRN PO 01/05/17 21:00 (Blistex Lip [place]) 1 applic UNSCH PRN TOPICAL 01/05/17 21:00 (Aspirin Chew) 81 mg DAILY CHEW 01/06/17 09:00 01/09/17 09:41 (Pepcid) 20 mg BID PO 01/05/17 21:00 01/09/17 09:41 (Zofran Inj) 4 mg Q6HR PRN IV PUSH 01/05/17 21:00 (Pill Splitter) 1 ea UNSCH PRN OTHER 01/05/17 21:45 (NS Flush) 2 ml BID IV FLUSH 01/06/17 21:00 01/09/17 09:00 (NS Flush) 2 ml UNSCH PRN IV FLUSH 01/06/17 10:15 (Dulcolax Supp) 10 mg DAILY PRN RECTAL 01/06/17 12:00 ([place] 5-325 Mg) 1 tab Q4H PRN PO 01/06/17 17:30 01/08/17 05:26 Fluconazole/ Sodium Chloride 50 ml @ 50 mls/hr Q24H IV 01/07/17 09:00 01/09/17 10:00 (K-Lyte Cl Eff) 25 meq Q12HR PO 01/07/17 12:45 01/09/17 09:43 (K-Phos Neutral) 250 mg Q8HR PO 01/07/17 14:00 01/09/17 14:10 Levofloxacin/ Dextrose 100 ml @ 100 mls/hr Q24H IV 01/08/17 15:00 01/09/17 15:08 Clindamycin Phosphate 600 mg/ Sodium Chloride 104 ml @ 208 mls/hr Q8H IV 01/07/17 18:00 01/09/17 17:31 (Duoneb Neb) 1 ampule Q6HR WHILE AWAKE NEB NEB 01/07/17 20:00 01/09/17 19:13 Heparin Sodium/ Dextrose 250 ml @ 7 mls/hr TITRATE IV 01/07/17 19:45 01/08/17 02:38 (NovoLOG SUPPLEMENTAL SCALE) 1 ACHS SQ 01/07/17 21:00 01/09/17 13:12 (D50w (Vial) Inj) 50 ml UNSCH PRN IV PUSH 01/07/17 19:45 (Glucagon Inj) 1 mg UNSCH PRN OTHER 01/07/17 19:45 Patient Own Medication PT OWN MED: (Teriflunomide (Aubagio)... DAILY PO 01/08/17 13:00 01/09/17 09:42 (Pyridium) 100 mg Q8H PRN PO 01/08/17 13:00 (B & O Supp) 60 mg Q6HR PRN RECTAL 01/08/17 13:00 (Jessi-Colace) 2 tab DAILY PO 01/08/17 13:15 01/09/17 09:39 Potassium Chloride 40 meq/ Sodium Chloride 38.5 meq/Sterile Water 1,029.625 ml @ 84 mls/hr [id number] IV 01/09/17 15:00 01/09/17 15:27 (Levemir Inj) 5 units Q12HR SQ 01/09/17 21:00 Allergies Allergies Coded Allergies Sulfa (Sulfonamide Antibiotics) (Verified Allergy, Intermediate, 12/28/16) Penicillins (Verified Allergy, Unknown, 12/28/16) Review of Systems All other ROS: ROS reviewed as documented in chart Exam I&O / VS 01/09/17 01/09/17 01/10/17 15:00 23:00 07:00 Intake Total 1184 ml 454.5 ml Output Total 650 ml Balance 534 ml 454.5 ml Intake Oral 720 ml IV Total 464 ml 454.5 ml Output Urine Total 650 ml # Bowel Movements 1 Vital Signs Date Time Temp Pulse Resp B/P (MAP) Pulse Ox O2 Delivery O2 Flow Rate FiO2 01/09/17 19:13 94 Nasal Cannula 2.00 01/09/17 16:00 98.5 87 20 162/77 (105) 98 01/09/17 12:12 97.7 89 20 144/75 (98) 96 01/09/17 08:00 97.9 92 20 143/78 (99) 93 01/09/17 08:00 96 01/09/17 06:01 97.2 86 20 153/92 (112) 98 01/09/17 00:54 97.2 68 24 158/75 (102) 95 01/08/17 23:31 84 01/08/17 20:47 94.5 80 18 140/77 (98) 95 Cardiology: Normal rate Musculoskeletal: ROM (Within functional limits), Swelling (None in distal lower extremities) Exam Comments Objective Micro and Labs Laboratory Tests Test 01/08/17 22:09 01/09/17 01:15 01/09/17 07:37 01/09/17 11:17 Activated Partial Thromboplast Time 93.8 56.7 47.5 White Blood Count 7.4 Red Blood Count 3.39 Hemoglobin 10.6 Hematocrit 31.0 Mean Corpuscular Volume 91.4 Mean Corpuscular Hemoglobin 31.1 Mean Corpuscular Hemoglobin Concent 34.1 Red Cell Distribution Width 14.1 Platelet Count 182 Mean Platelet Volume 10.4 Blood Urea Nitrogen 35 Creatinine 0.55 Random Glucose 194 Total Protein 5.5 Albumin 3.0 Calcium Level 8.2 Alkaline Phosphatase 128 Aspartate Amino Transf (AST/SGOT) 65 Alanine Aminotransferase (ALT/SGPT) 102 Total Bilirubin 1.7 Sodium Level 152 Potassium Level 2.9 Chloride Level 119 Carbon Dioxide Level 26.6 Anion Gap 6 Estimat Glomerular Filtration Rate 108 Phosphorus Level 2.0 Magnesium Level 2.2 Date/Time Source Procedure Growth Status 01/09/17 11:05 Stool Stool Stool Occult Blood (MODESTA) - Final HEMOCCULT POSITIVE Complete Philip Fountain PhD MD Jan 09, 2017 20:27
--- NOTE | 2017-01-09 20:30 | RADRPT ---
EXAM DATE/TIME: 01/09/2017 19:13 [facility] COMPARISON: CT THORAX W CONTRAST, January 05, 2017, 13:48. POC ULTRASOUND VASCULAR ACCESS TEAM, January 06 17, 18:20. CHEST SINGLE AP, January 07, 2017, 19:29. INDICATIONS : Short of breath. Infiltration per order. MEDICAL HISTORY : Stroke. Pulmonary embolism. SURGICAL HISTORY : None. ENCOUNTER: Subsequent ACUITY: 2 days PAIN SCORE: 0/10 LOCATION: Bilateral chest FINDINGS: The heart size is normal. There is increased density in the left perihilar region. The right lung is clear. CONCLUSION: Persistent consolidation/mass at the left perihilar region. Barry Edward MD on January 09, 2017 at 20:27 Board Certified Radiologist. This report was verified electronically.
[2017-01-09] MEDS: HEPARIN-D5W 25,000 U/250 ML 250 ML IV SCH (21:05)
[2017-01-09] MEDS: INSULIN DETEMIR 100 UNITS/ML VIAL SQ SCH (21:38)
--- NOTE | 2017-01-09 23:55 | PD.ONC.PN ---
Subjective Subjective Remarks speech impairment with expressive dysphagia breathing improved, no fevers no dysphagia no bleeding on Heparin GTT Objective Data Date Time Temp Pulse Resp B/P (MAP) Pulse Ox O2 Delivery O2 Flow Rate FiO2 01/09/17 20:34 97.6 101 20 147/70 (95) 92 01/09/17 19:13 94 Nasal Cannula 2.00 01/09/17 16:00 98.5 87 20 162/77 (105) 98 01/09/17 12:12 97.7 89 20 144/75 (98) 96 01/09/17 08:00 97.9 92 20 143/78 (99) 93 01/09/17 08:00 96 01/09/17 06:01 97.2 86 20 153/92 (112) 98 01/09/17 00:54 97.2 68 24 158/75 (102) 95 Result Diagram: 01/09/17 0115 01/09/17 1117 Laboratory Results Laboratory Tests Test 01/09/17 01:15 01/09/17 07:37 01/09/17 11:17 White Blood Count 7.4 TH/MM3 Red Blood Count 3.39 MIL/MM3 Hemoglobin 10.6 GM/DL Hematocrit 31.0 % Mean Corpuscular Volume 91.4 FL Mean Corpuscular Hemoglobin 31.1 PG Mean Corpuscular Hemoglobin Concent 34.1 % Red Cell Distribution Width 14.1 % Platelet Count 182 TH/MM3 Mean Platelet Volume 10.4 FL Activated Partial Thromboplast Time 56.7 SEC 47.5 SEC Blood Urea Nitrogen 35 MG/DL Creatinine 0.55 MG/DL Random Glucose 194 MG/DL Total Protein 5.5 GM/DL Albumin 3.0 GM/DL Calcium Level 8.2 MG/DL Alkaline Phosphatase 128 U/L Aspartate Amino Transf (AST/SGOT) 65 U/L Alanine Aminotransferase (ALT/SGPT) 102 U/L Total Bilirubin 1.7 MG/DL Sodium Level 152 MEQ/L Potassium Level 2.9 MEQ/L Chloride Level 119 MEQ/L Carbon Dioxide Level 26.6 MEQ/L Anion Gap 6 MEQ/L Estimat Glomerular Filtration Rate 108 ML/MIN Phosphorus Level 2.0 MG/DL Magnesium Level 2.2 MG/DL Culture Results Microbiology Date/Time Source Procedure Growth Status 01/09/17 11:05 Stool Stool Stool Occult Blood (MODESTA) - Final HEMOCCULT POSITIVE Complete Administered Medications Medications (Trade) Dose Ordered Sig/Marilin Route PRN Reason Start Time Stop Time Status Last Admin Dose Admin Metronidazole 100 ml @ 100 mls/hr Q8H IV 01/05/17 22:00 01/09/17 21:41 Methylprednisolone Sodium Succinate 250 mg/Dextrose 100 ml @ 104 mls/hr Q6HR IV 01/05/17 23:00 01/10/17 23:00 01/09/17 18:05 Fluconazole (Diflucan) 150 mg DAILY PO 01/06/17 09:00 01/09/17 09:41 Aspirin (Aspirin Chew) 81 mg DAILY CHEW 01/06/17 09:00 01/09/17 09:41 Famotidine (Pepcid) 20 mg BID PO 01/05/17 21:00 01/09/17 09:41 IV Flush (NS Flush) 2 ml BID IV FLUSH 01/06/17 21:00 01/09/17 09:00 Acetaminophen/ Hydrocodone Bitart ([place] 5-325 Mg) 1 tab Q4H PRN PO PAIN 1 TO 10 AND/OR AGITATION 01/06/17 17:30 01/08/17 05:26 Fluconazole/ Sodium Chloride 50 ml @ 50 mls/hr Q24H IV 01/07/17 09:00 01/09/17 10:00 Potassium Bicarb/ Potassium Chloride (K-Lyte Cl Eff) 25 meq Q12HR PO 01/07/17 12:45 01/09/17 20:41 Potassium Phos/ Sodium Phos (K-Phos Neutral) 250 mg Q8HR PO 01/07/17 14:00 01/09/17 21:07 Levofloxacin/ Dextrose 100 ml @ 100 mls/hr Q24H IV 01/08/17 15:00 01/09/17 15:08 Clindamycin Phosphate 600 mg/ Sodium Chloride 104 ml @ 208 mls/hr Q8H IV 01/07/17 18:00 01/09/17 17:31 Albuterol/ Ipratropium (Duoneb Neb) 1 ampule Q6HR WHILE AWAKE NEB NEB 01/07/17 20:00 01/09/17 19:13 Heparin Sodium/ Dextrose 250 ml @ 7 mls/hr TITRATE IV 01/07/17 19:45 01/09/17 21:05 Insulin Aspart (NovoLOG SUPPLEMENTAL SCALE) 1 ACHS SQ 01/07/17 21:00 01/09/17 21:38 Patient Own Medication PT OWN MED: (Teriflunomide (Aubagio)... DAILY PO 01/08/17 13:00 01/09/17 09:42 Senna/Docusate Sodium (Jessi-Colace) 2 tab DAILY PO 01/08/17 13:15 01/09/17 09:39 Potassium Chloride 40 meq/ Sodium Chloride 38.5 meq/Sterile Water 1,029.625 ml @ 84 mls/hr [id number] IV 01/09/17 15:00 01/09/17 15:27 Insulin Detemir (Levemir Inj) 5 units Q12HR SQ 01/09/17 21:00 01/09/17 21:38 Objective Remarks GENERAL: thin, frail, acutely ill SKIN: Warm and dry. LYMPHATIC: No adenopathy. CARDIOVASCULAR: Regular rate and rhythm without murmurs. RESPIRATORY: Breath sounds equal bilaterally. No accessory muscle use. GASTROINTESTINAL: Abdomen soft, non-tender, nondistended. EXTREMITIES: No cyanosis, or edema. rue weakness 06/10 Assessment/Plan Problem List: (1) Expressive aphasia ICD Codes: R47.01 - Aphasia Status: Acute (2) Multiple sclerosis ICD Codes: G35 - Multiple sclerosis Status: Chronic (3) Encephalopathy acute ICD Codes: G93.40 - Encephalopathy, unspecified (4) CVA (cerebral vascular accident) ICD Codes: I63.9 - Cerebral infarction, unspecified Status: Acute (5) Acute ischemic left MCA stroke ICD Codes: I63.512 - Cerebral infarction due to unspecified occlusion or stenosis of left middle cerebral artery Assessment 76-year-old female with a history of multiple sclerosis, DVT and pulmonary embolism and has had recurrent strokes. 1. Recurrent strokes. History of bilateral DVT and pulmonary embolism. - start coumadin - Continue Heparin GTT for at least 72 hours until her INR is greater than 2. Goal of the INR would be between 2 and 3. This patient will require indefinite anticoagulation. 2. History of multiple sclerosis. 3. Normocytic anemia - check anemia studies d/w rn o/n events reviewed Problem Qualifiers (1) CVA (cerebral vascular accident): Tomas Yarbrough MD Jan 09, 2017 23:55
[2017-01-10] VITALS (9 sets, daily range): BP systolic 131–164; BP diastolic 44–94; PULSE 76–96; RESP 18–20; TEMP 96.1–98.6; O2SAT 92–99
[2017-01-10] MEDS: methylPREDNISolone SO SUCC INJ 250 MG in DEXTROSE 5% IN WATER 100ML INJ 100 ML IV SCH ×8 (00:35→18:39)
[2017-01-10] MEDS: CLINDAMYCIN INJ 600 MG in SODIUM CHLORIDE 0.9% INJ 100 ML IV SCH ×3 (02:36→18:01)
[2017-01-10] MEDS: POTASSIUM CHLORIDE INJ 40 MEQ, SODIUM CHLORIDE 23.4% INJ 38.5 MEQ in WATER STERILE FOR ... IV SCH ×2 (03:16→17:55)
[2017-01-10] MEDS: metroNIDAZOLE 500 MG INJ 100 ML IV SCH ×3 (06:19→21:56)
[2017-01-10] MEDS: POTASSIUM PHOSPHATE/SODIUM PHOSPHATE 250 MG TAB PO SCH ×3 (06:19→21:53)
[2017-01-10] MEDS: RESP: ALBUTEROL 2.5 MG/IPRATROPIUM 0.5 MG NEB (SCH) NEB ×3 (07:50→19:37)
[2017-01-10] MEDS: INSULIN DETEMIR 100 UNITS/ML VIAL SQ SCH ×2 (08:46→21:00)
[2017-01-10] MEDS: INSULIN ASPART SUPPLEMENTAL SCALE SQ SCH ×4 (08:46→21:00)
[2017-01-10] MEDS: FAMOTIDINE 20 MG TAB PO SCH (08:47)
[2017-01-10] MEDS: ASPIRIN 81 MG CHEW TAB CHEW SCH (08:47)
[2017-01-10] MEDS: FLUCONAZOLE 100 MG TAB PO SCH (08:47)
[2017-01-10] MEDS: DOCUSATE SODIUM 50 MG/SENNA 8.6 MG TAB PO SCH (08:48)
[2017-01-10] MEDS: POTASSIUM CHLORIDE 25 MEQ EFFERVESCENT TAB PO SCH ×2 (08:48→21:53)
[2017-01-10] MEDS: SODIUM CHLORIDE 0.9% FLUSH 5 ML FLUSH IV FLUSH SCH ×2 (08:48→21:00)
[2017-01-10] MEDS: TERIFLUNOMIDE 14 MG PO SCH (08:49)
[2017-01-10] MEDS: FLUCONAZOLE 100 MG PREMIX BAG 50 ML IV SCH (09:00)
[2017-01-10 09:08] LABS: HEMATOCRIT 30.5 % (35.0-46.0); MEAN CELL VOLUME 91.8 FL (80.0-100.0); MEAN CORPUSCULAR HEMOGLOBIN 31.2 PG (27.0-34.0); PLATELET COUNT 172 TH/MM3 (150-450); RED BLOOD COUNT 3.32 MIL/MM3 (4.00-5.30); RED CELL DISTRIBUTION WIDTH 14.8 % (11.6-17.2); REVIEW FLAG FINAL; WHITE BLOOD COUNT 10.1 TH/MM3 (4.0-11.0)
[2017-01-10 09:12] LABS: APTT (PATIENT) 42.9 SEC (24.3-30.1)
[2017-01-10 09:27] LABS: INTERNATIONAL NORMALIZED RATIO 2.4 RATIO; PROTHROMBIN TIME - PATIENT 27.7 SEC (9.8-11.6)
[2017-01-10 09:44] LABS: TRANSFERRIN IRON PROFILE 161 MG/DL (200-360)
[2017-01-10 10:09] LABS: FERRITIN 930 NG/ML (8-252)
[2017-01-10 11:06] LABS: BICARBONATE 26.2 MEQ/L (21.0-32.0); POTASSIUM 3.2 MEQ/L (3.5-5.1)
[2017-01-10] MEDS ORDERED: POTASSIUM CHLOR 20 MEQ PREMIX 100 ML IV SCH (12:30)
[2017-01-10] MEDS: amLODIPine BESYLATE 5 MG TAB PO SCH (12:51)
[2017-01-10] MEDS ORDERED: ALPRAZolam 0.25 MG TAB PO PRN (14:00)
[2017-01-10] MEDS ORDERED: PANTOPRAZOLE SOD 40 MG DELAYED RELEASE TAB PO SCH (14:00)
[2017-01-10] MEDS: LEVOFLOXACIN 500 MG PREMIX INJ 100 ML IV SCH (15:36)
--- NOTE | 2017-01-10 16:09 | PD.CONS ---
HPI History of Present Illness This is a 76 year old female with a history of multiple sclerosis and DVT, who was recently found to have an ischemic left MCA distribution stroke at another facility. She was started on Xarelto and transferred to [facility] for rehabilitation. She was noted to have increasing lethargy on 01/06/17 and was found to have a new right posterior parietal occipital cva while on Xarelto and was transferred to the [facility] for further evaluation and treatment. She is being followed neurology and he feels that this is most likely embolic in nature. She is currently on a Heparin drip. Her hemoglobin has slowly been trending down and she was found to have Hemoccult positive stool. Her HH is 10.4/30.5 today. GI was consulted for further evaluation. The patient is not having any obvious GI blood loss. She denies nausea, vomiting, or hematemesis. She does occasionally have heartburn and reflux and takes a medication at home as needed for this. She denies any abdominal pain. She was having constipation here in the hospital, but states that this resolved after starting a stool softener. They report that her appetite is very poor and she is only taking a few sips and bites of each meal. Her last colonoscopy was 10-20 years ago and she has had a polyp removed in the past. Of note, her mother at age 45 from colon cancer. The patient is extremely lethargic. D/W patient, , daughter and son- EGD +/- Colonoscopy +/- feeding tube placement. The daughter and son would like to proceed with egd/colonoscopy and are specifically requesting colonoscopy because of the family hx of colon cancer. However, her is very reluctant and does not want to do any procedure if there are risks. D/W the need for anticoagulation, but hemoccult positive stool and the fact that if she has GI bleeding, that this may bleed more with anticoagulation and therefore endoscopies to see if there is any bleeding that could be controlled. They would like to discuss this more with other family members. (Do Remy) PFSH Past Medical History Multiple sclerosis on Aubagio. 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 Hyperlipidemia. Prior stroke Diverticulosis Past Surgical History History of traumatic laceration of of the nose 3 years with plastic surgery. Lasik surgery to both eyes (Do Remy) Coded Allergies: Sulfa (Sulfonamide Antibiotics) (Verified Allergy, Intermediate, 12/28/16) hives Penicillins (Verified Allergy, Unknown, 12/28/16) childhood reaction unknown Medications Allergies Coded Allergies Type Severity Reaction Last Updated Verified Sulfa (Sulfonamide Antibiotics) Allergy Intermediate 12/28/16 Yes Penicillins Allergy Unknown 12/28/16 Yes Active Scripts Medications Dose Route/Sig Max Daily Dose Days Date Category Aubagio (Teriflunomide) 14 Mg Tab 14 Mg PO DAILY 12/28/16 Reported Xarelto (Rivaroxaban) 15 Mg Tab 15 Mg PO DAILY 12/28/16 Reported Family History Mother at age 45 from colon cancer. Father around age 97 of "old age. " Patient's sister has multiple sclerosis as well. No known family history of stroke. Two children alive and well. Social History The patient currently does not smoke, however she did and quit in 1971. The patient drinks alcohol occasionally. No illicit drug use (Do Remy) Review of Systems Constitutional: COMPLAINS OF: Fatigue, Weight loss, Change in appetite Respiratory: COMPLAINS OF: Cough, DENIES: Shortness of breath Cardiovascular: DENIES: Chest pain Gastrointestinal: COMPLAINS OF: Constipation, Difficulty Swallowing, Anorexia, Heartburn, DENIES: Abdominal pain, Black stools, Bloody stools, Diarrhea, Nausea , Vomiting, Swelling of Abdomen Psychiatric: DENIES: Confusion ROS lethargic, poor historian (Do Remy) GI Exam Vitals I&O Vital Signs Date Time Temp Pulse Resp B/P (MAP) Pulse Ox O2 Delivery O2 Flow Rate FiO2 01/10/17 12:27 97.6 76 20 131/59 (83) 99 01/10/17 08:29 97.4 89 18 164/94 (117) 93 01/10/17 08:00 96 01/10/17 05:44 98.6 89 20 157/44 (81) 98 01/10/17 01:53 96.1 90 20 152/86 (108) 95 01/09/17 20:34 97.6 101 20 147/70 (95) 92 01/09/17 19:13 94 Nasal Cannula 2.00 01/09/17 16:00 98.5 87 20 162/77 (105) 98 I/O 01/09/17 01/09/17 01/09/17 01/10/17 01/10/17 01/10/17 07:00 15:00 23:00 07:00 15:00 23:00 Intake Total 400 ml 1184 ml 454.5 ml 1601.2 ml 100 ml Output Total 950 ml 650 ml 550 ml Balance -550 ml 534 ml 454.5 ml -550 ml 1601.2 ml 100 ml Intake Oral 720 ml IV Total 400 ml 464 ml 454.5 ml 1601.2 ml 100 ml Output Urine Total 950 ml 650 ml 550 ml # Voids 2 # Bowel Movements 2 1 3 Imaging Last Impressions Chest X-Ray 01/09/17 0000 Signed Impressions: Service Date/Time: Monday, January 09, 2017 19:13 - CONCLUSION: Persistent consolidation/mass at the left perihilar region. Barry Edward MD Head CT 01/07/17 0000 Signed Impressions: Service Date/Time: Saturday, January 07, 2017 09:43 - CONCLUSION: 1. Multiple evolving bilateral cerebral infarcts involving both anterior and posterior circulation territories, as above. Differential considerations include embolism or vasculitis. 2. No significant intercurrent hemorrhage, herniation, or hydrocephalus. German Bloom MD Neck CTA 01/06/17 0000 Signed Impressions: Service Date/Time: Friday, January 06, 2017 19:10 - CONCLUSION: Normal CTA carotids. David Jordan MD Brain MRI 01/06/17 0000 Signed Impressions: Service Date/Time: Friday, January 06, 2017 18:49 - CONCLUSION: 1. Acute nonhemorrhagic infarction in the right MCA INFERTILITY NURSE watershed zone. 2. Subacute infarctions with possible subacute blood products in the left occipital and left suprasylvian parietal region. 3. Subacute infarction in the right posterior insula without evidence of blood products. David Jordan MD Laboratory Test 01/10/17 08:26 White Blood Count 10.1 TH/MM3 Red Blood Count 3.32 MIL/MM3 Hemoglobin 10.4 GM/DL Hematocrit 30.5 % Mean Corpuscular Volume 91.8 FL Mean Corpuscular Hemoglobin 31.2 PG Mean Corpuscular Hemoglobin Concent 34.0 % Red Cell Distribution Width 14.8 % Platelet Count 172 TH/MM3 Mean Platelet Volume 10.9 FL Prothrombin Time 27.7 SEC Prothromb Time International Ratio 2.4 RATIO Activated Partial Thromboplast Time 42.9 SEC Blood Urea Nitrogen 32 MG/DL Creatinine 0.41 MG/DL Random Glucose 165 MG/DL Calcium Level 8.1 MG/DL Sodium Level 153 MEQ/L Potassium Level 3.2 MEQ/L Chloride Level 120 MEQ/L Carbon Dioxide Level 26.2 MEQ/L Anion Gap 7 MEQ/L Estimat Glomerular Filtration Rate 151 ML/MIN Iron Level 219 MCG/DL Total Iron Binding Capacity 225 MCG/DL Percent Iron Saturation 97.2 % Ferritin 930 NG/ML Vitamin B12 Level 594 PG/ML Date/Time Source Procedure Growth Status 01/10/17 07:03 Stool Stool Stool Occult Blood (MODESTA) - Final HEMOCCULT POSITIVE Complete Physical Examination HEENT: Normocephalic; atraumatic; no jaundice. CHEST: Resp shallow/even. diminished CARDIAC: RRR. ABDOMEN: Soft, nondistended, nontender; no hepatosplenomegaly; bowel sounds are present in all four quadrants. EXTREMITIES: No clubbing, cyanosis, or edema. SKIN: Multiple ecchymotic areas ENGINEERING PROJECT MANAGER: Lethargic, generalized weakness (Do Remy) Assessment and Plan Plan ASSESSMENT: - Anemia with hemoccult positive stool in patient requiring anticoagulation. Pt with hx of DVT and was at [facility] for an ischemic left MCA distribution stroke at another facility. She then developed a new new right posterior parietal occipital cva while on Xarelto. Her H/H is slowly trending down and she was noted to have hemoccult positive stool. She is now on a heparin gtt and GI has been consulted for egd/colonoscopy to rule out GIB. Pt denies GI symptoms other than occasional heartburn/reflux and constipation (controlled). Her last colonoscopy was 10-20 years ago and she had a polyp removed. Her mother from colon cancer at age 45. D/W patient, , daughter and son EGD +/- Colonoscopy. The daughter and son would like to proceed with egd/colonoscopy and are specifically requesting colonoscopy because of the family hx of colon cancer. However, her is very reluctant and does not want to do any procedure if there are risks. They would like to discuss this more with other family members prior to making a decision. - Dysphagia, decreased appetite. ST following. Puree diet with nectar thickened liquids. Family reports that she is only taking small bites/sips with each meal. D/W possible need for feeding tube for supplemental feedings until she can take enough orally. They are not interested in feeding tube at this time. Will add ensure and ensure pudding to each tray and consult top printing press operator. On remeron. - Elevated LFTs. T. Bili 1.7, AST 65, ALT 102, ALk PHosph 128. Get RUQ us. - Ischemic left MCA distribution stroke, new right posterior parietal occipital cva while on xarelto. Now on heparin, neuro following. - Multiple sclerosis. Per neuro. - Hyperlipidemia, electrolyte abnormalities. per attending. PLAN: - Puree diet with nectar thickened liquids - Add ensure milkshake with each meal - Add ensure pudding each meal - Developmental Mathematics Instructor evaluation - Pt and family would like to discuss possible endoscopic evaluation amongst each other and with other family members prior to making a decision - Further recommendations to follow basd on results of above - Pt seen and examined by Dr. Clay and myself and this note is written on her behalf (Do Remy) Physician Comments SEEN, EXAMINED AGREE WITH ABOVE lengthy discussion about egd/colonoscopy at this point we will observe-we will hold on procedures for now risk , benefits discussed close monitoring of hb (Radha Clay MD) Do Remy Jan 10, 2017 16:09 Radha Clay MD Jan 10, 2017 19:11
[2017-01-10] MEDS: PANTOPRAZOLE SODIUM 40 MG VIAL IV PUSH SCH (17:57)
--- NOTE | 2017-01-10 18:30 | HHI.PR ---
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 Now with what is a new right posterior parietal-occipital cva--most likely embolic. No definite hemorrhage on todays CT. MRI is more sensitive for picking up petechial hemorrhage Multiple sclerosis Plan stop solumedrol today continue anticoagulation with iv heparin. 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--consider coumadin SHe is stable neurologically to proceed with colonoscopy Diagnosis/Plan: Subjective Subjective Comments No acute events reported Pt developed GI hemorrhage and is scheduled for colonoscopy Active Medications Current Medications Medications (Trade) Dose Ordered Sig/Marilin Route Start Time Stop Time Status Last Admin (Narcan Inj) 0.4 mg UNSCH PRN IV PUSH 01/05/17 21:00 Metronidazole 100 ml @ 100 mls/hr Q8H IV 01/05/17 22:00 01/10/17 14:22 Methylprednisolone Sodium Succinate 250 mg/Dextrose 100 ml @ 104 mls/hr Q6HR IV 01/05/17 23:00 01/10/17 23:00 01/10/17 12:02 (Diflucan) 150 mg DAILY PO 01/06/17 09:00 01/10/17 08:47 (Fioricet 325-50-40) 1 tab Q8H PRN PO 01/05/17 21:00 (Blistex Lip [place]) 1 applic UNSCH PRN TOPICAL 01/05/17 21:00 01/10/17 17:57 (Aspirin Chew) 81 mg DAILY CHEW 01/06/17 09:00 01/10/17 08:47 (Zofran Inj) 4 mg Q6HR PRN IV PUSH 01/05/17 21:00 (Pill Splitter) 1 ea UNSCH PRN OTHER 01/05/17 21:45 (NS Flush) 2 ml BID IV FLUSH 01/06/17 21:00 01/10/17 08:48 (NS Flush) 2 ml UNSCH PRN IV FLUSH 01/06/17 10:15 (Dulcolax Supp) 10 mg DAILY PRN RECTAL 01/06/17 12:00 ([place] 5-325 Mg) 1 tab Q4H PRN PO 01/06/17 17:30 01/08/17 05:26 Fluconazole/ Sodium Chloride 50 ml @ 50 mls/hr Q24H IV 01/07/17 09:00 01/10/17 09:00 (K-Lyte Cl Eff) 25 meq Q12HR PO 01/07/17 12:45 01/10/17 08:48 (K-Phos Neutral) 250 mg Q8HR PO 01/07/17 14:00 01/10/17 12:51 Levofloxacin/ Dextrose 100 ml @ 100 mls/hr Q24H IV 01/08/17 15:00 01/10/17 15:36 Clindamycin Phosphate 600 mg/ Sodium Chloride 104 ml @ 208 mls/hr Q8H IV 01/07/17 18:00 01/10/17 18:01 (Duoneb Neb) 1 ampule Q6HR WHILE AWAKE NEB NEB 01/07/17 20:00 01/09/17 19:13 Heparin Sodium/ Dextrose 250 ml @ 7 mls/hr TITRATE IV 01/07/17 19:45 01/09/17 21:05 (NovoLOG SUPPLEMENTAL SCALE) 1 ACHS SQ 01/07/17 21:00 01/10/17 08:46 (D50w (Vial) Inj) 50 ml UNSCH PRN IV PUSH 01/07/17 19:45 (Glucagon Inj) 1 mg UNSCH PRN OTHER 01/07/17 19:45 Patient Own Medication PT OWN MED: (Teriflunomide (Aubagio)... DAILY PO 01/08/17 13:00 01/10/17 08:49 (Pyridium) 100 mg Q8H PRN PO 01/08/17 13:00 (B & O Supp) 60 mg Q6HR PRN RECTAL 01/08/17 13:00 (Jessi-Colace) 2 tab DAILY PO 01/08/17 13:15 01/09/17 09:39 Potassium Chloride 40 meq/ Sodium Chloride 38.5 meq/Sterile Water 1,029.625 ml @ 100 mls/hr [id number] IV 01/09/17 15:00 01/10/17 17:55 (Levemir Inj) 5 units Q12HR SQ 01/09/17 21:00 01/10/17 08:46 (Coumadin) 2.5 mg DAILY@1600 PO 01/10/17 16:00 Future Hold Pharmacy Profile Note 0 ml @ 0 mls/hr UNSCH OTHER 01/10/17 00:00 (Norvasc) 5 mg DAILY PO 01/10/17 12:30 01/10/17 12:51 (Xanax) 0.25 mg Q6H PRN PO 01/10/17 14:00 (Remeron) 15 mg HS PO 01/10/17 21:00 (Protonix Inj) 40 mg Q24H IV PUSH 01/10/17 17:00 01/10/17 17:57 Allergies Allergies Coded Allergies Sulfa (Sulfonamide Antibiotics) (Verified Allergy, Intermediate, 12/28/16) Penicillins (Verified Allergy, Unknown, 12/28/16) Review of Systems All other ROS: ROS reviewed as documented in chart Exam I&O / VS 01/10/17 01/10/17 01/11/17 15:00 23:00 07:00 Intake Total 1601.2 ml 464.7 ml Output Total 750 ml Balance 1601.2 ml -285.3 ml IV Total 1601.2 ml 464.7 ml Output Urine Total 750 ml Vital Signs Date Time Temp Pulse Resp B/P (MAP) Pulse Ox O2 Delivery O2 Flow Rate FiO2 01/10/17 17:55 92 Nasal Cannula 4.00 01/10/17 16:49 97.9 91 18 134/59 (84) 92 01/10/17 12:27 97.6 76 20 131/59 (83) 99 01/10/17 08:29 97.4 89 18 164/94 (117) 93 01/10/17 08:00 96 01/10/17 05:44 98.6 89 20 157/44 (81) 98 01/10/17 01:53 96.1 90 20 152/86 (108) 95 01/09/17 20:34 97.6 101 20 147/70 (95) 92 01/09/17 19:13 94 Nasal Cannula 2.00 Cardiology: Normal rate Musculoskeletal: ROM (Within functional limits), Swelling (None in distal lower extremities) Exam Comments alert, speech normal CN--decreased visual acuity Bilaterally PERRL 4/5 RUE , 5/5 LUE Objective Micro and Labs Laboratory Tests Test 01/10/17 08:26 White Blood Count 10.1 Red Blood Count 3.32 Hemoglobin 10.4 Hematocrit 30.5 Mean Corpuscular Volume 91.8 Mean Corpuscular Hemoglobin 31.2 Mean Corpuscular Hemoglobin Concent 34.0 Red Cell Distribution Width 14.8 Platelet Count 172 Mean Platelet Volume 10.9 Prothrombin Time 27.7 Prothromb Time International Ratio 2.4 Activated Partial Thromboplast Time 42.9 Blood Urea Nitrogen 32 Creatinine 0.41 Random Glucose 165 Calcium Level 8.1 Sodium Level 153 Potassium Level 3.2 Chloride Level 120 Carbon Dioxide Level 26.2 Anion Gap 7 Estimat Glomerular Filtration Rate 151 Iron Level 219 Total Iron Binding Capacity 225 Percent Iron Saturation 97.2 Ferritin 930 Vitamin B12 Level 594 Date/Time Source Procedure Growth Status 01/10/17 07:03 Stool Stool Stool Occult Blood (MODESTA) - Final HEMOCCULT POSITIVE Complete Philip Fountain PhD Jan 10, 2017 18:30
[2017-01-10] MEDS ORDERED: LACTULOSE SYRUP 20 GM/30 ML CUP PO ONE (19:15)
[2017-01-10] MEDS ORDERED: MAGNESIUM CITRATE SOLN 300 ML BTL PO ONE (19:15)
[2017-01-10] MEDS ORDERED: BISACODYL EC 5 MG TABEC PO ONE (19:15)
[2017-01-10] MEDS ORDERED: BISACODYL 10 MG SUPP RECTAL ONE (19:15)
--- NOTE | 2017-01-10 19:40 | HHI.PR ---
Subjective Remarks Awake and on O2 2 L. Seems more alert and clearer speech On Antibiotics. Doing PT No fever Objective Vital Signs Date Time Temp Pulse Resp B/P (MAP) Pulse Ox O2 Delivery O2 Flow Rate FiO2 01/10/17 17:55 92 Nasal Cannula 4.00 01/10/17 16:49 97.9 91 18 134/59 (84) 92 01/10/17 12:27 97.6 76 20 131/59 (83) 99 01/10/17 08:29 97.4 89 18 164/94 (117) 93 01/10/17 08:00 96 01/10/17 05:44 98.6 89 20 157/44 (81) 98 01/10/17 01:53 96.1 90 20 152/86 (108) 95 01/09/17 20:34 97.6 101 20 147/70 (95) 92 I/O 01/09/17 01/09/17 01/09/17 01/10/17 01/10/17 01/10/17 07:00 15:00 23:00 07:00 15:00 23:00 Intake Total 400 ml 1184 ml 454.5 ml 1601.2 ml 568.7 ml Output Total 950 ml 650 ml 550 ml 750 ml Balance -550 ml 534 ml 454.5 ml -550 ml 1601.2 ml -181.3 ml Intake Oral 720 ml IV Total 400 ml 464 ml 454.5 ml 1601.2 ml 568.7 ml Output Urine Total 950 ml 650 ml 550 ml 750 ml # Voids 2 # Bowel Movements 2 1 3 Result Diagram: 01/10/1782501/10/17825 Objective Remarks GENERAL: This thinly built elderly white female who is pale and laying flat in no acute distress. HEENT: Head normocephalic. Pupils reactive. Tongue was moist. Throat is clear. NECK: Supple. No bruits or thyroid enlargement or lymphadenopathy. CHEST: Decreased breath sounds at the bases with occasional crackles at the lung bases. HEART: The heart sounds are regular S1-S2. No murmur. No S3. ABDOMEN: Soft, scaphoid without masses. No organomegaly or tenderness. Bowel sounds are active. EXTREMITIES: Reveal no edema. NEUROLOGIC: The patient does move her extremities with minimal weakness. The patient's speech is somewhat hesitant. SKIN: Dry and cool. Assessment and Plan Assessment and Plan IMPRESSION 1. Aspiration pneumonia with hypoxemia. 2. Expressive aphagia. 3. History of cerebrovascular accident. 4. History of pulmonary emboli. 5. Dysphagia with aspiration. 6. Hypertension. Plan : 1. Continue O2 at 4 L. 2. Nebs tid , duoneb. 3. Continue antibiotics. 4. CBC,BMP. 5. Chest Xray in am 6. PT evaluation Delfin Murcia MD Jan 10, 2017 19:40
[2017-01-10] MEDS: MIRTAZAPINE 15 MG TAB PO SCH (21:53)
--- NOTE | 2017-01-10 23:59 | PD.ONC.PN ---
Subjective Subjective Remarks awake and alert having conversation no bleeding on Heparin and coumadin Objective Data Date Time Temp Pulse Resp B/P (MAP) Pulse Ox O2 Delivery O2 Flow Rate FiO2 01/10/17 20:16 97.3 86 18 155/75 (101) 94 01/10/17 19:39 93 Nasal Cannula 4.00 01/10/17 17:55 92 Nasal Cannula 4.00 01/10/17 16:49 97.9 91 18 134/59 (84) 92 01/10/17 12:27 97.6 76 20 131/59 (83) 99 01/10/17 08:29 97.4 89 18 164/94 (117) 93 01/10/17 08:00 96 01/10/17 05:44 98.6 89 20 157/44 (81) 98 01/10/17 01:53 96.1 90 20 152/86 (108) 95 Result Diagram: 01/10/1782501/10/1726 Laboratory Results Laboratory Tests Test 01/10/17 08:26 White Blood Count 10.1 TH/MM3 Red Blood Count 3.32 MIL/MM3 Hemoglobin 10.4 GM/DL Hematocrit 30.5 % Mean Corpuscular Volume 91.8 FL Mean Corpuscular Hemoglobin 31.2 PG Mean Corpuscular Hemoglobin Concent 34.0 % Red Cell Distribution Width 14.8 % Platelet Count 172 TH/MM3 Mean Platelet Volume 10.9 FL Prothrombin Time 27.7 SEC Prothromb Time International Ratio 2.4 RATIO Activated Partial Thromboplast Time 42.9 SEC Blood Urea Nitrogen 32 MG/DL Creatinine 0.41 MG/DL Random Glucose 165 MG/DL Calcium Level 8.1 MG/DL Sodium Level 153 MEQ/L Potassium Level 3.2 MEQ/L Chloride Level 120 MEQ/L Carbon Dioxide Level 26.2 MEQ/L Anion Gap 7 MEQ/L Estimat Glomerular Filtration Rate 151 ML/MIN Iron Level 219 MCG/DL Total Iron Binding Capacity 225 MCG/DL Percent Iron Saturation 97.2 % Ferritin 930 NG/ML Vitamin B12 Level 594 PG/ML Culture Results Microbiology Date/Time Source Procedure Growth Status 01/10/17 07:03 Stool Stool Stool Occult Blood ([facility]) - Final HEMOCCULT POSITIVE Complete 01/09/17 11:05 Stool Stool Stool Occult Blood (MODESTA) - Final HEMOCCULT POSITIVE Complete Administered Medications Medications (Trade) Dose Ordered Sig/Marilin Route PRN Reason Start Time Stop Time Status Last Admin Dose Admin Metronidazole 100 ml @ 100 mls/hr Q8H IV 01/05/17 22:00 01/10/17 21:56 Fluconazole (Diflucan) 150 mg DAILY PO 01/06/17 09:00 01/10/17 08:47 Oxybenzone/ Padimate O/ Dimethicone (Blistex Lip Dale) 1 applic UNSCH PRN TOPICAL CHAPPED LIPS 01/05/17 21:00 01/10/17 17:57 Aspirin (Aspirin Chew) 81 mg DAILY CHEW 01/06/17 09:00 01/10/17 08:47 IV Flush (NS Flush) 2 ml BID IV FLUSH 01/06/17 21:00 01/10/17 08:48 Acetaminophen/ Hydrocodone Bitart (Jack 5-325 Mg) 1 tab Q4H PRN PO PAIN 1 TO 10 AND/OR AGITATION 01/06/17 17:30 01/08/17 05:26 Fluconazole/ Sodium Chloride 50 ml @ 50 mls/hr Q24H IV 01/07/17 09:00 01/10/17 09:00 Potassium Bicarb/ Potassium Chloride (K-Lyte Cl Eff) 25 meq Q12HR PO 01/07/17 12:45 01/10/17 21:53 Potassium Phos/ Sodium Phos (K-Phos Neutral) 250 mg Q8HR PO 01/07/17 14:00 01/10/17 21:53 Levofloxacin/ Dextrose 100 ml @ 100 mls/hr Q24H IV 01/08/17 15:00 01/10/17 15:36 Clindamycin Phosphate 600 mg/ Sodium Chloride 104 ml @ 208 mls/hr Q8H IV 01/07/17 18:00 01/10/17 18:01 Albuterol/ Ipratropium (Duoneb Neb) 1 ampule Q6HR WHILE AWAKE NEB NEB 01/07/17 20:00 01/10/17 19:37 Heparin Sodium/ Dextrose 250 ml @ 7 mls/hr TITRATE IV 01/07/17 19:45 01/09/17 21:05 Insulin Aspart (NovoLOG SUPPLEMENTAL SCALE) 1 ACHS SQ 01/07/17 21:00 01/10/17 21:00 Patient Own Medication PT OWN MED: (Teriflunomide (Aubagio)... DAILY PO 01/08/17 13:00 01/10/17 08:49 Senna/Docusate Sodium (Jessi-Colace) 2 tab DAILY PO 01/08/17 13:15 01/09/17 09:39 Potassium Chloride 40 meq/ Sodium Chloride 38.5 meq/Sterile Water 1,029.625 ml @ 100 mls/hr [id number] IV 01/09/17 15:00 01/10/17 17:55 Insulin Detemir (Levemir Inj) 5 units Q12HR SQ 01/09/17 21:00 01/10/17 08:46 Amlodipine Besylate (Norvasc) 5 mg DAILY PO 01/10/17 12:30 01/10/17 12:51 Mirtazapine (Remeron) 15 mg HS PO 01/10/17 21:00 01/10/17 21:53 Pantoprazole Sodium (Protonix Inj) 40 mg Q24H IV PUSH 01/10/17 17:00 01/10/17 17:57 Objective Remarks GENERAL: nad SKIN: Warm and dry. CARDIOVASCULAR: Regular rate and rhythm without murmurs. RESPIRATORY: Breath sounds equal bilaterally. No accessory muscle use. GASTROINTESTINAL: Abdomen soft, non-tender, nondistended. EXTREMITIES: No cyanosis, or edema. Assessment/Plan Problem List: (1) Expressive aphasia ICD Codes: R47.01 - Aphasia Status: Acute (2) Multiple sclerosis ICD Codes: G35 - Multiple sclerosis Status: Chronic (3) Encephalopathy acute ICD Codes: G93.40 - Encephalopathy, unspecified (4) CVA (cerebral vascular accident) ICD Codes: I63.9 - Cerebral infarction, unspecified Status: Acute (5) Acute ischemic left MCA stroke ICD Codes: I63.512 - Cerebral infarction due to unspecified occlusion or stenosis of left middle cerebral artery Assessment 76-year-old female with a history of multiple sclerosis, DVT and pulmonary embolism and has had recurrent strokes. 1. Recurrent strokes. History of bilateral DVT and pulmonary embolism. - Coumadin on hold INR 2.4 - Continue Heparin GTT for at least 72 hours until her INR is greater than 2. Goal of the INR would be between 2 and 3. This patient will require indefinite anticoagulation. 2. History of multiple sclerosis. 3. Normocytic anemia - anemia of chronic disease d/w rn o/n events reviewed Problem Qualifiers (1) CVA (cerebral vascular accident): Tomas Yarbrough MD Jan 10, 2017 23:59
[2017-01-11] VITALS (7 sets, daily range): BP systolic 119–175; BP diastolic 61–87; PULSE 78–100; RESP 16–20; TEMP 97.3–98; O2SAT 92–97
--- NOTE | 2017-01-11 00:14 | HHI.PR ---
Subjective Remarks Patient denies cp/sob patient very tired today - as per son seems to be weaker Objective Vitals Vital Signs Date Time Temp Pulse Resp B/P (MAP) Pulse Ox O2 Delivery O2 Flow Rate FiO2 01/10/17 20:16 97.3 86 18 155/75 (101) 94 01/10/17 19:39 93 Nasal Cannula 4.00 01/10/17 17:55 92 Nasal Cannula 4.00 01/10/17 16:49 97.9 91 18 134/59 (84) 92 01/10/17 12:27 97.6 76 20 131/59 (83) 99 01/10/17 08:29 97.4 89 18 164/94 (117) 93 01/10/17 08:00 96 01/10/17 05:44 98.6 89 20 157/44 (81) 98 01/10/17 01:53 96.1 90 20 152/86 (108) 95 I/O 01/10/17 01/10/17 01/10/17 01/11/17 01/11/17 01/11/17 06:59 14:59 22:59 06:59 14:59 22:59 Intake Total 1601.2 ml 692.7 ml Output Total 550 ml 750 ml Balance -550 ml 1601.2 ml -57.3 ml IV Total 1601.2 ml 692.7 ml Output Urine Total 550 ml 750 ml Bladder Scan Volume Amount 253 ml # Bowel Movements 3 Result Diagram: 01/10/17 0826 01/10/17 0826 Imaging Last Impressions Chest X-Ray 01/09/17 0000 Signed Impressions: Service Date/Time: Monday, January 09, 2017 19:13 - CONCLUSION: Persistent consolidation/mass at the left perihilar region. Barry Edward MD Head CT 01/07/17 0000 Signed Impressions: Service Date/Time: Saturday, January 07, 2017 09:43 - CONCLUSION: 1. Multiple evolving bilateral cerebral infarcts involving both anterior and posterior circulation territories, as above. Differential considerations include embolism or vasculitis. 2. No significant intercurrent hemorrhage, herniation, or hydrocephalus. German Bloom MD Neck CTA 01/06/17 0000 Signed Impressions: Service Date/Time: Friday, January 06, 2017 19:10 - CONCLUSION: Normal CTA carotids. David Jordan MD Brain MRI 01/06/17 0000 Signed Impressions: Service Date/Time: Friday, January 06, 2017 18:49 - CONCLUSION: 1. Acute nonhemorrhagic infarction in the right MCA AUDIT SPEC watershed zone. 2. Subacute infarctions with possible subacute blood products in the left occipital and left suprasylvian parietal region. 3. Subacute infarction in the right posterior insula without evidence of blood products. David Jordan MD Objective Remarks Patient is awake and alert, nonacute distress Seems to have difficulty seeing Lungs are clear Abdomen is soft, nontender nondistended Abernathy catheter in place with clearing hematuria. Mild nonpitting edema in bilateral lower extremities. More alert today, follows commands. PERRL EOM intact Right umn cn 7 palsey / RUE. / LUE right hemiparesia Procedures none Urinary Catheter: No Vascular Central Line Catheter: No A/P Problem List: (1) Encephalopathy acute ICD Code: G93.40 - Encephalopathy, unspecified (2) CVA (cerebral vascular accident) ICD Code: I63.9 - Cerebral infarction, unspecified Status: Acute (3) Pneumonia ICD Code: J18.9 - Pneumonia, unspecified organism (4) Hx pulmonary embolism ICD Code: Z86.711 - Personal history of pulmonary embolism Status: Chronic (5) UTI (urinary tract infection) ICD Code: N39.0 - Urinary tract infection, site not specified (6) Expressive aphasia ICD Code: R47.01 - Aphasia Status: Acute (7) Dysphagia ICD Code: R13.10 - Dysphagia, unspecified Status: Acute (8) Multiple sclerosis ICD Code: G35 - Multiple sclerosis Status: Chronic (9) HTN (hypertension) ICD Code: I10 - Essential (primary) hypertension (10) Hyperglycemia ICD Code: R73.9 - Hyperglycemia, unspecified (11) Hematuria ICD Code: R31.9 - Hematuria, unspecified (12) Elevated troponin ICD Code: R74.8 - Abnormal levels of other serum enzymes (13) Acute hypernatremia ICD Code: E87.0 - Hyperosmolality and hypernatremia Plan: Likely due to poor oral intake. Sodium trending up from 149 on 01/08 to152 on 01/09. The patient was started on half-normal saline plus KCl on 01/08, however sodium still trending up. I will switch the patient to / NS + KCL. 01/10 Sodium still elvated at 153 - Continue / ns but will increase rate to (14) Hypokalemia ICD Code: E87.6 - Hypokalemia Plan: Likely due to poor oral intake. Replaced orally and IV since admission. Continue to monitor and replca K as needed. (15) Anemia ICD Code: D64.9 - Anemia, unspecified Plan: The patient is Hemoccult positive. I will continue to monitor hemoglobin is slowly trending down and now is 10.6. I will discuss with the family regarding consulting gastroenterology for possible colonoscopy and EGD. I will start the patient on PPI. Continue to monitor hemoglobin. (16) Depression ICD Code: F32.9 - Major depressive disorder, single episode, unspecified Plan: As per family very tearful. Will start Remeron which will also help improving appetite. (17) Anxiety ICD Code: F41.9 - Anxiety disorder, unspecified Plan: Will Rx low dose Xanax prn as needed. Assessment and Plan (1) Encephalopathy acute ICD Code: G93.40 - Encephalopathy, unspecified Plan: Encephalopathy likely multifactorial secondary to new CVA as mentioned above in CT scan and secondary to UTI and aspiration pneumonia. CT of the head showed new left posterior CVA. Neurology consulted on following patient. Patient currently on aspirin and on Xarelto. I will hold Xarelto and place the patient on IV heparin drip given that the patient has hematuria. Encephalopathy seems to be resolving and much improved. The patient now can have a conversation and follows commands. Continue neurochecks. (2) CVA (cerebral vascular accident) Given that the patient has had a repeat stroke on anticoagulation I will consult hematology. I will also check for sedimentation rate, CRP, JAMARI and ANCA to rule out vasculitis. 01/07 MRI of the brain as described above shows an acute nonhemorrhagic infarction in the right MCA AUDIT SPEC watershed zone. It also shows subacute infarctions with possible subacute blood products in the left occipital and left suprasylvian parietal region. Subacute infarction in the right posterior insula without evidence of blood products. CT of the head ordered this morning it does not show any significant intercurrent hemorrhage, herniation or hydrocephalus. Heparin discontinued as per neurology recommendations. Will continue to hold now given hematuria which seems to be improving. Resume anticoagulation as per neurology recommendations and when hematuria resolves. Consult Pt/OT. 01/09 Continue IV heparin drip resumed as per neurology recommendations. Continue neurochecks. Ophthalmology consultation pending. 01/10 Continue heparin IV (3) Pneumonia Plan: Ct chest as mentioned above shows a right upper lobe infiltrate and superior segment of the left lower lobe with nearly masslike focal airspace consolidation in the left lower lobe containing air bronchograms measuring 2.4 2.1 cm. Suspect aspiration pneumonia. Pulmonary consulted, recommended continuation of IV Levaquin and IV Flagyl and addition of IV clindamycin. Continue. (4) Hx pulmonary embolism Plan: Patient has history of bilateral lower extremity DVT and PE initially on Xarelto. However this has been discontinued secondary to hematuria and evidence of possible bladder and MRI which CT does not show. Monitor vital signs and oxygenation. (5) UTI (urinary tract infection) ICD Code: N39.0 - Urinary tract infection, site not specified Plan: Continue IV Levaquin. Patient now has hematuria. I will consult urology. Monitor hemoglobin if it drops then heparin will need to be placed on hold. Urine cultures growing gram-negative rods. HEENT IV Levaquin. Urology consulted. Recommendations appreciated. Will keep Abernathy to drainage until hematuria has completely resolved 24 hours. Urine culture is growing Escherichia coli which is pansensitive. 01/09 Hematuria resolved. Will DC abernathy in am. 01/10 Dc abernathy catheter. (6) Expressive aphasia Plan: Speech therapy consulted. 01/07 expressive aphasia seems to be improving, patient now able to communicate better. (7) Dysphagia Plan: Speech therapy recommended a pured diet with nectar consistency thickened liquids. (8) Multiple sclerosis Plan: Currently being treated with Solu-Medrol 250 mg IV every 6 hours. 01/07 continue management as per neurology. (9) HTN (hypertension) ICD Code: I10 - Essential (primary) hypertension Plan: Permissive hypertension for now. Hold antihypertensive medications. The patient previously on amlodipine. 01/09 Bp seems to be more stable. Continue to monitor BP. 01/10 resume amlodipine 5 mg po daily. (10) Hyperglycemia ICD Code: R73.9 - Hyperglycemia, unspecified Plan: Likely steroid-induced. Continue SSI with insulin NovoLog and monitor Accu-Cheks. (11) Hematuria ICD Code: R31.9 - Hematuria, unspecified Plan: I will discontinue Xarelto and start the patient on IV heparin drip without bolus. Monitor hemoglobin every 6 hours and if it drops then consideration of discontinuation of heparin drip should be discussed. I discussed this in detail with the family since stopping anticoagulation could but the patient [facility] records for further CVAs. 01/08 hemoglobin stable and hematuria improving. Continue to monitor CBC. Improving. 01/10 Resolved. (12) Elevated troponin ICD Code: R74.8 - Abnormal levels of other serum enzymes Plan: Patient's troponin is elevated 0.06, 0.07, I will check an EKG and consult cardiology. Echocardiogram pending. Suspect related to strokes. No chest pain. Echo shows normal systolic function, grade 1 diastolic function but no intracardiac thrombus reported. Discussed with Son and daughter Discharge Planning PAtient still with hematuria. Will possibly DC abernathy in am and switch heparin to Lovenox SQ and Start coumadin. Problem Qualifiers (1) CVA (cerebral vascular accident): (2) HTN (hypertension): Qualified Codes: I10 - Essential (primary) hypertension (3) Anemia: Qualified Codes: D64.9 - Anemia, unspecified Shon Bernal MD Jan 11, 2017 00:13
--- NOTE | 2017-01-11 00:46 | PD.CONS ---
History of Present Illness Service Ophthalmology Consult Requested By Reason for Consult visual impairment Primary Care Physician Unknown Diagnoses: History of Present Illness 76-year-old female with past medical history of multiple sclerosis, hyperlipidemia, DVT and PE on Xarelto, CVA with expressive aphasia. History obtained from records. The patient was admitted for the hospital in [place] on 12/21/16 with sudden onset of slurred speech and right-sided facial droop. The patient was evaluated by neurology, Dr. Philip Fountain for acute CVA. MRI was obtained and it showed a 3 cm triangular area of abnormal signal and restricted flow involving the left temporal lobe, sylvian fissure into the basal ganglia consistent with acute infarct of the left MCA distribution. There is also reported one episode of lethargy with repeat CT brain showing evolution of the left MCA territory ischemia/infarction without hemorrhagic conversion. CT was ordered showed a new acute to subacute right posterior parietal/ occipital mild convexity infarct. It showed evolving infarct involving the medial left occipital mild complexities, left mid parietal high convexities and mid right parietal high convexities. and daughter currently at bedside and state the patient has not been responding to visual stimuli for the most part. Patient is not answering questions. Past Family Social History Allergies: Coded Allergies: Sulfa (Sulfonamide Antibiotics) (Verified Allergy, Intermediate, 12/28/16) hives Penicillins (Verified Allergy, Unknown, 12/28/16) childhood reaction unknown Physical Exam Vital Signs Vital Signs Date Time Temp Pulse Resp B/P (MAP) Pulse Ox O2 Delivery O2 Flow Rate FiO2 01/10/17 20:16 97.3 86 18 155/75 (101) 94 01/10/17 19:39 93 Nasal Cannula 4.00 01/10/17 17:55 92 Nasal Cannula 4.00 01/10/17 16:49 97.9 91 18 134/59 (84) 92 01/10/17 12:27 97.6 76 20 131/59 (83) 99 01/10/17 08:29 97.4 89 18 164/94 (117) 93 01/10/17 08:00 96 01/10/17 05:44 98.6 89 20 157/44 (81) 98 01/10/17 01:53 96.1 90 20 152/86 (108) 95 Physical Exam Va unable - inconsistent responses to light EOM full OU CVF unable Pupils 2-1 no APD OU IOP normal to palpation OU Anterior exam OD - normal eyelid, C/S W&Q, K clear, AC deep, pupil round, lens clear OS - normal eyelid, C/S W&Q, K clear, AC deep, pupil round, lens clear Laboratory Laboratory Tests Test 01/10/17 08:26 White Blood Count 10.1 Red Blood Count 3.32 Hemoglobin 10.4 Hematocrit 30.5 Mean Corpuscular Volume 91.8 Mean Corpuscular Hemoglobin 31.2 Mean Corpuscular Hemoglobin Concent 34.0 Red Cell Distribution Width 14.8 Platelet Count 172 Mean Platelet Volume 10.9 Prothrombin Time 27.7 Prothromb Time International Ratio 2.4 Activated Partial Thromboplast Time 42.9 Blood Urea Nitrogen 32 Creatinine 0.41 Random Glucose 165 Calcium Level 8.1 Sodium Level 153 Potassium Level 3.2 Chloride Level 120 Carbon Dioxide Level 26.2 Anion Gap 7 Estimat Glomerular Filtration Rate 151 Iron Level 219 Total Iron Binding Capacity 225 Percent Iron Saturation 97.2 Ferritin 930 Vitamin B12 Level 594 Date/Time Source Procedure Growth Status 01/10/17 07:03 Stool Stool Stool Occult Blood (MODESTA) - Final HEMOCCULT POSITIVE Complete Result Diagram: 01/10/1782501/10/17825 Assessment and Plan Problem List: (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 Family and patient is aware this may be permanent and there is no treatment. Gege De Anda MD Jan 11, 2017 00:46
[2017-01-11] MEDS: CLINDAMYCIN INJ 600 MG in SODIUM CHLORIDE 0.9% INJ 100 ML IV SCH ×2 (02:23→09:18)
[2017-01-11] MEDS: POTASSIUM CHLORIDE INJ 40 MEQ, SODIUM CHLORIDE 23.4% INJ 38.5 MEQ in WATER STERILE FOR ... IV SCH ×2 (02:24→14:05)
[2017-01-11] MEDS: metroNIDAZOLE 500 MG INJ 100 ML IV SCH ×3 (05:46→21:47)
[2017-01-11] MEDS: POTASSIUM PHOSPHATE/SODIUM PHOSPHATE 250 MG TAB PO SCH ×3 (05:46→21:41)
[2017-01-11] MEDS ORDERED: MAGNESIUM CITRATE SOLN 300 ML BTL PO ONE (06:00)
--- NOTE | 2017-01-11 07:33 | RADRPT ---
EXAM DATE/TIME: 01/11/2017 06:23 [facility] COMPARISON: CHEST SINGLE AP, January 09, 2017, 19:13. INDICATIONS : Short of breath, evaluate infiltrate MEDICAL HISTORY : Stroke. pulmonary embolism SURGICAL HISTORY : None. ENCOUNTER: Subsequent ACUITY: 4 - 6 days PAIN SCORE: Non-responsive. LOCATION: Bilateral chest FINDINGS: The heart size is normal. There is increased density in the left base in the retrocardiac area with s ilhouetting of the left hemidiaphragm and in the left perihilar region. The right lung is free of foc al consolidation. CONCLUSION: Persistent areas of consolidation in the left lung. Barry Edward MD on January 11, 2017 at 7:30 Board Certified Radiologist. This report was verified electronically.
[2017-01-11] MEDS: INSULIN ASPART SUPPLEMENTAL SCALE SQ SCH ×4 (08:00→21:51)
[2017-01-11] MEDS: RESP: ALBUTEROL 2.5 MG/IPRATROPIUM 0.5 MG NEB (SCH) NEB (08:00)
[2017-01-11 08:14] LABS: APTT (PATIENT) 38.9 SEC (24.3-30.1); INTERNATIONAL NORMALIZED RATIO 2.5 RATIO; PROTHROMBIN TIME - PATIENT 28.8 SEC (9.8-11.6)
[2017-01-11] MEDS: SODIUM CHLORIDE 0.9% FLUSH 5 ML FLUSH IV FLUSH SCH ×2 (09:00→23:20)
[2017-01-11] MEDS: INSULIN DETEMIR 100 UNITS/ML VIAL SQ SCH ×2 (09:00→21:00)
[2017-01-11] MEDS: FLUCONAZOLE 100 MG TAB PO SCH (09:13)
[2017-01-11] MEDS: DOCUSATE SODIUM 50 MG/SENNA 8.6 MG TAB PO SCH (09:13)
[2017-01-11] MEDS: ASPIRIN 81 MG CHEW TAB CHEW SCH (09:14)
[2017-01-11] MEDS: amLODIPine BESYLATE 5 MG TAB PO SCH (09:17)
[2017-01-11] MEDS: TERIFLUNOMIDE 14 MG PO SCH (09:19)
[2017-01-11] MEDS: POTASSIUM CHLORIDE 25 MEQ EFFERVESCENT TAB PO SCH ×2 (09:19→21:00)
[2017-01-11] MEDS: FLUCONAZOLE 100 MG PREMIX BAG 50 ML IV SCH (09:20)
[2017-01-11 13:22] LABS: HEMATOCRIT 32.5 % (35.0-46.0); MEAN CELL VOLUME 92.4 FL (80.0-100.0); MEAN CORPUSCULAR HGB CONC 32.4 % (32.0-36.0); PLATELET COUNT 190 TH/MM3 (150-450); RED BLOOD COUNT 3.51 MIL/MM3 (4.00-5.30); RED CELL DISTRIBUTION WIDTH 15.1 % (11.6-17.2); REVIEW FLAG FINAL; WHITE BLOOD COUNT 16.6 TH/MM3 (4.0-11.0)
--- NOTE | 2017-01-11 13:26 | HHI.PR ---
Subjective Remarks Son and at bedside. They report that the patient is not eating. Also they report that the patient has been retaining and is complaining of urinary discomfort. RN states the patient had to get straight catheterized last night for urinary retention. There are no reports of melena. Objective Vitals Vital Signs Date Time Temp Pulse Resp B/P (MAP) Pulse Ox O2 Delivery O2 Flow Rate FiO2 01/11/17 12:54 97.4 100 18 161/76 (104) 92 01/11/17 09:29 94 Nasal Cannula 2.00 01/11/17 08:55 97.8 94 18 175/83 (113) 97 01/11/17 06:01 97.3 83 20 155/87 (109) 97 01/11/17 00:58 97.7 86 20 143/72 (95) 96 01/10/17 20:16 97.3 86 18 155/75 (101) 94 01/10/17 19:39 93 Nasal Cannula 4.00 01/10/17 17:55 92 Nasal Cannula 4.00 01/10/17 16:49 97.9 91 18 134/59 (84) 92 I/O 01/10/17 01/10/17 01/10/17 01/11/17 01/11/17 01/11/17 07:00 15:00 23:00 07:00 15:00 23:00 Intake Total 1601.2 ml 692.7 ml Output Total 550 ml 750 ml 350 ml Balance -550 ml 1601.2 ml -57.3 ml -350 ml IV Total 1601.2 ml 692.7 ml Output Urine Total 550 ml 750 ml 350 ml Bladder Scan Volume Amount 253 ml 372 ml # Bowel Movements 3 Result Diagram: 01/10/17 0826 01/10/17 0826 Imaging Last 72 hours Impressions Chest X-Ray 01/11/17 0600 Signed Impressions: Service Date/Time: Wednesday, January 11, 2017 06:23 - CONCLUSION: Persistent areas of consolidation in the left lung. Barry Edward MD Chest X-Ray 01/09/17 0000 Signed Impressions: Service Date/Time: Monday, January 09, 2017 19:13 - CONCLUSION: Persistent consolidation/mass at the left perihilar region. Barry Edward MD Objective Remarks Patient is awake and alert, nonacute distress Seems to have difficulty seeing Lungs are clear Abdomen is soft, nontender nondistended Beckman catheter in place with clearing hematuria. Mild nonpitting edema in bilateral lower extremities. More alert today, follows commands. PERRL EOM intact Right umn cn 7 palsey 3/5 RUE. 4/5 LUE right hemiparesia Procedures none Medications and IVs Current Medications Medications (Trade) Dose Ordered Sig/Marilin Route Start Time Stop Time Status Last Admin (Narcan Inj) 0.4 mg UNSCH PRN IV PUSH 01/05/17 21:00 Metronidazole 100 ml @ 100 mls/hr Q8H IV 01/05/17 22:00 01/11/17 05:46 (Fioricet 325-50-40) 1 tab Q8H PRN PO 01/05/17 21:00 (Blistex Lip [place]one) 1 applic UNSCH PRN TOPICAL 01/05/17 21:00 01/10/17 17:57 (Aspirin Chew) 81 mg DAILY CHEW 01/06/17 09:00 01/11/17 09:14 (Zofran Inj) 4 mg Q6HR PRN IV PUSH 01/05/17 21:00 (Pill Splitter) 1 ea UNSCH PRN OTHER 01/05/17 21:45 (NS Flush) 2 ml BID IV FLUSH 01/06/17 21:00 01/11/17 09:00 (NS Flush) 2 ml UNSCH PRN IV FLUSH 01/06/17 10:15 (Dawson 5-325 Mg) 1 tab Q4H PRN PO 01/06/17 17:30 01/08/17 05:26 (K-Lyte Cl Eff) 25 meq Q12HR PO 01/07/17 12:45 01/11/17 09:19 (K-Phos Neutral) 250 mg Q8HR PO 01/07/17 14:00 01/11/17 05:46 Levofloxacin/ Dextrose 100 ml @ 100 mls/hr Q24H IV 01/08/17 15:00 01/10/17 15:36 (Duoneb Neb) 1 ampule Q6HR WHILE AWAKE NEB NEB 01/07/17 20:00 01/11/17 08:00 Heparin Sodium/ Dextrose 250 ml @ 7 mls/hr TITRATE IV 01/07/17 19:45 01/09/17 21:05 (NovoLOG SUPPLEMENTAL SCALE) 1 ACHS SQ 01/07/17 21:00 01/10/17 21:00 (D50w (Vial) Inj) 50 ml UNSCH PRN IV PUSH 01/07/17 19:45 (Glucagon Inj) 1 mg UNSCH PRN OTHER 01/07/17 19:45 Patient Own Medication PT OWN MED: (Teriflunomide (Aubagio)... DAILY PO 01/08/17 13:00 01/11/17 09:19 (Pyridium) 100 mg Q8H PRN PO 01/08/17 13:00 (B & O Supp) 60 mg Q6HR PRN RECTAL 01/08/17 13:00 (Jessi-Colace) 2 tab DAILY PO 01/08/17 13:15 01/11/17 09:13 Potassium Chloride 40 meq/ Sodium Chloride 38.5 meq/Sterile Water 1,029.625 ml @ 100 mls/hr [id number] IV 01/09/17 15:00 01/11/17 02:24 (Levemir Inj) 5 units Q12HR SQ 01/09/17 21:00 01/11/17 09:00 (Coumadin) 2.5 mg DAILY@1600 PO 01/10/17 16:00 Future Hold Pharmacy Profile Note 0 ml @ 0 mls/hr UNSCH OTHER 01/10/17 00:00 (Norvasc) 5 mg DAILY PO 01/10/17 12:30 01/11/17 09:17 (Xanax) 0.25 mg Q6H PRN PO 01/10/17 14:00 (Remeron) 15 mg HS PO 01/10/17 21:00 01/10/17 21:53 (Protonix Inj) 40 mg Q24H IV PUSH 01/10/17 17:00 01/10/17 17:57 Urinary Catheter: No Vascular Central Line Catheter: No A/P Problem List: (1) Encephalopathy acute ICD Code: G93.40 - Encephalopathy, unspecified (2) CVA (cerebral vascular accident) ICD Code: I63.9 - Cerebral infarction, unspecified Status: Acute (3) Pneumonia ICD Code: J18.9 - Pneumonia, unspecified organism (4) Hx pulmonary embolism ICD Code: Z86.711 - Personal history of pulmonary embolism Status: Chronic (5) UTI (urinary tract infection) ICD Code: N39.0 - Urinary tract infection, site not specified (6) Expressive aphasia ICD Code: R47.01 - Aphasia Status: Acute (7) Dysphagia ICD Code: R13.10 - Dysphagia, unspecified Status: Acute (8) Multiple sclerosis ICD Code: G35 - Multiple sclerosis Status: Chronic (9) HTN (hypertension) ICD Code: I10 - Essential (primary) hypertension (10) Hyperglycemia ICD Code: R73.9 - Hyperglycemia, unspecified (11) Hematuria ICD Code: R31.9 - Hematuria, unspecified (12) Elevated troponin ICD Code: R74.8 - Abnormal levels of other serum enzymes (13) Acute hypernatremia ICD Code: E87.0 - Hyperosmolality and hypernatremia (14) Hypokalemia ICD Code: E87.6 - Hypokalemia (15) Anemia ICD Code: D64.9 - Anemia, unspecified (16) Depression ICD Code: F32.9 - Major depressive disorder, single episode, unspecified (17) Anxiety ICD Code: F41.9 - Anxiety disorder, unspecified (18) Decreased appetite ICD Code: R63.0 - Anorexia Plan: Consult dietitian for calorie counting advice on supplemental nutrition. I will start the patient on Megace. (19) Urinary retention ICD Code: R33.9 - Retention of urine, unspecified Plan: The patient had urinary retention and had to be catheterized last night. Today the family stated that the patient had not urinated. However after I woke out of the room the patient had a large urination. The bladder scan which showed 400 mL's. Continue to straight catheter and do voiding trials. A urinary retention continues throughout the day I will reinsert Beckman catheter. I will give Flomax 0.4 mg daily. Assessment and Plan (1) Encephalopathy acute Encephalopathy felt to be likely multifactorial secondary to CVA, UTI and aspiration pneumonia. A CT scan of the head showed a new left posterior CVA. Neurology was consulted and is following the patient. Initially the patient was on aspirin on Xarelto. Xarelto was discontinued and the patient was placed on IV heparin drip given that the patient had hematuria which eventually resolved. Hematology was consulted due to the patient having had a stroke while on Xarelto. Hematology recommended bridging with heparin/Lovenox subcutaneously 72 hours to Coumadin with an INR goal of 2-3. They made a special recommendation to keep the patient on heparin drip 72 hours once the INR was at goal. Encephalopathy seemed to have resolved. Continue to monitor neuro checks. The patient is able to have a conversation and follows commands. (2) CVA (cerebral vascular accident) Hematology consulted. ESR and CRP normal. JAMARI negative and anti-within normal range. Vasculitis likely not because of strokes. CVA likely thromboembolic. MRI of the brain was done and described as above showed a nonacute hemorrhagic infarction in the right MCA LEAD CARE MANAGER watershed zone. It also showed possibility of subacute blood products in the left occipital and left suprasylvian parietal region. CT of the head was ordered and did not show any major bleeding. Therefore neurology decided to continue anticoagulation. PT/OT consulted. Appreciate efforts. Continue IV heparin drip and I will resume Coumadin since there are no immediate plans of doing a GI procedure. Appreciate ophthalmology consultation and recommendations. 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 2D Echocardiogram showed a normal left ventricular size with a grade 1 diastolic dysfunction. However no thrombus was observed. There is moderate to severe tricuspid regurgitation and pulmonary hypertension with a pressure of 70 mmHg. (3) Pneumonia Plan: Ct chest as mentioned above shows a right upper lobe infiltrate and superior segment of the left lower lobe with nearly masslike focal airspace consolidation in the left lower lobe containing air bronchograms measuring 2.4 2.1 cm. Suspect aspiration pneumonia. Pulmonary consulted, recommended continuation of IV Levaquin and IV Flagyl and addition of IV clindamycin. Continue. 01/11 I discussed the case with Dr. Fallon from pulmonary. I also reviewed the chest x-ray obtained today (01/11) which shows an improving left lower lobe consolidation. Discontinue clindamycin. Continue IV Levaquin and IV Flagyl. (4) Hx pulmonary embolism Plan: Patient has history of bilateral lower extremity DVT and PE initially on Xarelto. However this has been discontinued secondary to hematuria and evidence of possible bladder and MRI which CT does not show. Monitor vital signs and oxygenation. (5) UTI (urinary tract infection) Plan: Treated with IV Levaquin. The patient developed hematuria. Urology consulted. Urine cultures grew Escherichia coli which was sensitive to quinolones. Urology recommended keeping the Beckman to drainage initially and to the hematuria resolved. Beckman catheter was discontinued on 01/10 with the patient having some urinary retention. (6) Expressive aphasia Plan: Speech therapy consulted. 01/07 expressive aphasia seems to be improving, patient now able to communicate better. (7) Dysphagia Plan: Speech therapy consulted. Follow-up recommendations for diet and fluid consistency. (8) Multiple sclerosis Plan: Currently being treated with Solu-Medrol 250 mg IV every 6 hours. Continue management as per neurology. (9) HTN (hypertension) Plan: The patient blood pressure initially was elevated, however permissive hypertension was allowed for several days. The patient was resumed on amlodipine 5 mg by mouth daily on 01/10 with improvement in BP control. (10) Hyperglycemia Likely steroid-induced since hemoglobin A1c is 5.4 and diabetes has been ruled out.. Continue SSI with insulin NovoLog and monitor Accu-Cheks. Blood sugar seems stable. (11) Hematuria Plan: Xarelto was initially discontinued and the patient was placed on IV heparin drip. Beckman catheter placed. Urology consulted. Recommended conservative management. Eventually hematuria resolved and Beckman catheter has been discontinued. (12) Elevated troponin Plan: Patient's troponin is elevated 0.06, 0.07, I will check an EKG and consult cardiology. Echocardiogram pending. Suspect related to strokes. No chest pain. Echo shows normal systolic function, grade 1 diastolic function but no intracardiac thrombus reported. (13) Acute hypernatremia ICD Code: E87.0 - Hyperosmolality and hypernatremia Plan: Likely due to poor oral intake. Sodium trending up from 149 on 01/08 to152 on 01/09. The patient was started on half-normal saline plus KCl on 01/08, however sodium still trending up. I will switch the patient to 04/11 NS + KCL. Sodium still elevated on 01/10 however due to axis difficulties the patient has not been getting them of fluid she needs. 01/11 labs are still pending. (14) Hypokalemia Plan: Likely due to poor oral intake. Replaced orally and IV since admission. Continue to monitor and replace K as needed. (15) Anemia Plan: The patient was found to be Hemoccult positive 2. Hemoglobin monitor and trended and slowly trending down, 10.4 today. GI consulted. As per GI report it was decided to not do endoscopy or colonoscopy in the patient and to monitor the hemoglobin. Continue PPI and continue to follow-up GI recommendations. Acute to monitor CBC (16) Depression Plan: Patient's family referred that the patient very tearful and not eating. I start the patient on Remeron 15 g at bedtime on 01/10. However I will consult psychiatry for further recommendations. (17) Anxiety Plan: Continue low-dose Xanax when necessary as needed. Seems to be improving. Discussed with Son and daughter Discharge Planning Pending psychiatric consult. Also coronary count requested. The plan will be to have the patient complete the caloric count and see if she is taking enough calories. If not the family is agreeable for PICC placement. GI has been consulted. Problem Qualifiers (1) CVA (cerebral vascular accident): (2) HTN (hypertension): Qualified Codes: I10 - Essential (primary) hypertension (3) Anemia: Qualified Codes: D64.9 - Anemia, unspecified Shon Bernal MD Jan 11, 2017 13:26
[2017-01-11 13:40] LABS: ANION GAP 7 MEQ/L (5-15); AST (GOT) 65 U/L (15-37); BICARBONATE 24.2 MEQ/L (21.0-32.0); BLOOD UREA NITROGEN 28 MG/DL (7-18); CHLORIDE 117 MEQ/L (98-107); GLOMERULAR FILTRATION RATE 160 ML/MIN (>89); POTASSIUM 3.9 MEQ/L (3.5-5.1); SODIUM (NA) 148 MEQ/L (136-145)
[2017-01-11 13:41] LABS: ALT (GPT) 81 U/L (10-53)
[2017-01-11 13:43] LABS: ALKALINE PHOSPHATASE 135 U/L (45-117); TOTAL BILIRUBIN ADULT 1.9 MG/DL (0.2-1.0)
[2017-01-11] MEDS: MEGESTROL ACETATE SUSP 400 MG/10 ML CUP PO SCH (14:05)
[2017-01-11] MEDS: PHENAZOPYRIDINE HCL 100 MG TAB PO PRN (14:06)
[2017-01-11] MEDS: WARFARIN SOD 2.5 MG TAB PO SCH ×2 (14:06→14:56)
[2017-01-11 14:28] LABS: APTT (PATIENT) 41.5 SEC (24.3-30.1)
[2017-01-11] MEDS: LEVOFLOXACIN 500 MG PREMIX INJ 100 ML IV SCH (14:55)
[2017-01-11] MEDS: PANTOPRAZOLE SODIUM 40 MG VIAL IV PUSH SCH (17:40)
--- NOTE | 2017-01-11 17:53 | HHI.GIFU ---
Subjective Remarks Resting in bed. Continues to have poor appetite- not taking much in the way of po. Computer Aide in, started calorie count, made recommendations. states that they have decided against endoscopic procedures for now. (Do Remy) Objective Vitals I&O Vital Signs Date Time Temp Pulse Resp B/P (MAP) Pulse Ox O2 Delivery O2 Flow Rate FiO2 01/11/17 17:11 98.0 97 16 146/84 (104) 94 01/11/17 12:54 97.4 100 18 161/76 (104) 92 01/11/17 09:29 94 Nasal Cannula 2.00 01/11/17 08:55 97.8 94 18 175/83 (113) 97 01/11/17 06:01 97.3 83 20 155/87 (109) 97 01/11/17 00:58 97.7 86 20 143/72 (95) 96 01/10/17 20:16 97.3 86 18 155/75 (101) 94 01/10/17 19:39 93 Nasal Cannula 4.00 01/10/17 17:55 92 Nasal Cannula 4.00 I/O 01/10/17 01/10/17 01/10/17 01/11/17 01/11/17 01/11/17 07:00 15:00 23:00 07:00 15:00 23:00 Intake Total 1601.2 ml 692.7 ml Output Total 550 ml 750 ml 350 ml 550 ml Balance -550 ml 1601.2 ml -57.3 ml -350 ml -550 ml IV Total 1601.2 ml 692.7 ml Output Urine Total 550 ml 750 ml 350 ml 550 ml Bladder Scan Volume Amount 253 ml 500 ml 372 ml # Voids 2 # Bowel Movements 3 Laboratory Laboratory Tests Test 01/11/17 07:00 01/11/17 12:33 01/11/17 12:38 01/11/17 13:39 Prothrombin Time 28.8 Prothromb Time International Ratio 2.5 Activated Partial Thromboplast Time 38.9 41.5 Phosphorus Level 1.9 White Blood Count 16.6 Red Blood Count 3.51 Hemoglobin 10.5 Hematocrit 32.5 Mean Corpuscular Volume 92.4 Mean Corpuscular Hemoglobin 30.0 Mean Corpuscular Hemoglobin Concent 32.4 Red Cell Distribution Width 15.1 Platelet Count 190 Mean Platelet Volume 11.5 Blood Urea Nitrogen 28 Creatinine 0.39 Random Glucose 147 Total Protein 5.2 Albumin 3.0 Calcium Level 8.4 Alkaline Phosphatase 135 Aspartate Amino Transf (AST/SGOT) 65 Alanine Aminotransferase (ALT/SGPT) 81 Total Bilirubin 1.9 Sodium Level 148 Potassium Level 3.9 Chloride Level 117 Carbon Dioxide Level 24.2 Anion Gap 7 Estimat Glomerular Filtration Rate 160 Date/Time Source Procedure Growth Status 01/10/17 07:03 Stool Stool Stool Occult Blood (MODESTA) - Final HEMOCCULT POSITIVE Complete Imaging Last Impressions Chest X-Ray 01/11/17 0600 Signed Impressions: Service Date/Time: Wednesday, January 11, 2017 06:23 - CONCLUSION: Persistent areas of consolidation in the left lung. Barry Edward MD Head CT 01/07/17 0000 Signed Impressions: Service Date/Time: Saturday, January 07, 2017 09:43 - CONCLUSION: 1. Multiple evolving bilateral cerebral infarcts involving both anterior and posterior circulation territories, as above. Differential considerations include embolism or vasculitis. 2. No significant intercurrent hemorrhage, herniation, or hydrocephalus. German Bloom MD Neck CTA 01/06/17 0000 Signed Impressions: Service Date/Time: Friday, January 06, 2017 19:10 - CONCLUSION: Normal CTA carotids. David Jordan MD Brain MRI 01/06/17 0000 Signed Impressions: Service Date/Time: Friday, January 06, 2017 18:49 - CONCLUSION: 1. Acute nonhemorrhagic infarction in the right MCA RN PARALEGAL watershed zone. 2. Subacute infarctions with possible subacute blood products in the left occipital and left suprasylvian parietal region. 3. Subacute infarction in the right posterior insula without evidence of blood products. David Jordan MD Physical Exam HEENT: Normocephalic; atraumatic; no jaundice. CHEST: Resp. even/unlabored CARDIAC: RRR. ABDOMEN: Soft, nondistended, nontender; no hepatosplenomegaly; bowel sounds are present in all four quadrants. EXTREMITIES: No clubbing, cyanosis, or edema. SKIN: Normal; no rash; no jaundice. FLY WORKER: Lethargic, generalized weakness. (Do Remy) Assessment and Plan Plan ASSESSMENT: - Anemia with hemoccult positive stool in patient requiring anticoagulation. Pt with hx of DVT and was at [place] for an ischemic left MCA distribution stroke at another facility. She then developed a new new right posterior parietal occipital cva while on Xarelto. Her H/H is slowly trending down and she was noted to have hemoccult positive stool. She is now on a heparin gtt and GI has been consulted for egd/colonoscopy to rule out GIB. Pt denies GI symptoms other than occasional heartburn/reflux and constipation (controlled). Her last colonoscopy was 10-20 years ago and she had a polyp removed. Her mother from colon cancer at age 45. D/W patient, , daughter and son EGD +/- Colonoscopy. they would like to hold on endoscopic procedures at this time. - Dysphagia, decreased appetite. ST following. Puree diet with nectar thickened liquids. Family reports that she is only taking small bites/sips with each meal. D/W possible need for feeding tube for supplemental feedings until she can take enough orally. They are not interested in feeding tube at this time. Computer Aide following, recommends ensure enlive bid, calorie count is in progress. On remeron. Megace. - Elevated LFTs. T. Bili 1.9, AST 65, ALT 81, ALk PHosph 135. - Ischemic left MCA distribution stroke, new right posterior parietal occipital cva while on xarelto. Now on heparin, neuro following. - Multiple sclerosis. Per neuro. - Hyperlipidemia, electrolyte abnormalities. per attending. PLAN: - Puree diet with nectar thickened liquids - Ensure enlive BID - Ensure pudding - Calorie count - Megace/Remeron - Pt and would like to hold off on endoscopic procedures for now - Pt seen and examined by Dr. Clay and myself and this note is written on her behalf (Do Remy) Plan seen , examined agree with above we will start ppn consider peg tube or Dobbhoff tube if family agrees (Radha Clay MD) Do Remy Jan 11, 2017 17:53 Radha Clay MD Jan 12, 2017 07:12
--- NOTE | 2017-01-11 19:31 | HHI.PR ---
Subjective Remarks Awake and on O2 2 L.Feels better , CXR improved. On Antibiotics. Doing PT No fever Objective Vital Signs Date Time Temp Pulse Resp B/P (MAP) Pulse Ox O2 Delivery O2 Flow Rate FiO2 01/11/17 17:11 98.0 97 16 146/84 (104) 94 01/11/17 12:54 97.4 100 18 161/76 (104) 92 01/11/17 09:29 94 Nasal Cannula 2.00 01/11/17 08:55 97.8 94 18 175/83 (113) 97 01/11/17 06:01 97.3 83 20 155/87 (109) 97 01/11/17 00:58 97.7 86 20 143/72 (95) 96 01/10/17 20:16 97.3 86 18 155/75 (101) 94 01/10/17 19:39 93 Nasal Cannula 4.00 I/O 01/10/17 01/10/17 01/10/17 01/11/17 01/11/17 01/11/17 07:00 15:00 23:00 07:00 15:00 23:00 Intake Total 1601.2 ml 692.7 ml Output Total 550 ml 750 ml 350 ml 550 ml Balance -550 ml 1601.2 ml -57.3 ml -350 ml -550 ml IV Total 1601.2 ml 692.7 ml Output Urine Total 550 ml 750 ml 350 ml 550 ml Bladder Scan Volume Amount 253 ml 500 ml 372 ml # Voids 2 # Bowel Movements 3 Result Diagram: 01/11/17 1238 01/11/17 1238 Objective Remarks GENERAL: This thinly built elderly white female who is pale and in no acute distress. HEENT: Head normocephalic. Pupils reactive. Tongue was moist. Throat is clear. NECK: Supple. No bruits or thyroid enlargement or lymphadenopathy. CHEST: Decreased breath sounds at the bases with occasional crackles at the lung bases.Few wheezes. HEART: The heart sounds are regular S1-S2. No murmur. No S3. ABDOMEN: Soft, scaphoid without masses. No organomegaly or tenderness. Bowel sounds are active. EXTREMITIES: Reveal no edema. NEUROLOGIC: The patient does move her extremities with minimal weakness. SKIN: Dry and cool. Assessment and Plan Assessment and Plan IMPRESSION 1. Aspiration pneumonia with hypoxemia. 2. Expressive aphagia. 3. History of cerebrovascular accident. 4. History of pulmonary emboli. 5. Dysphagia with aspiration. 6. Hypertension. Plan : 1. Continue O2 at 2 L. 2. Nebs tid , duoneb. 3. Continue antibiotics. and D/C Clindamycin 4. Swallow evaluation 5. PT evaluation 6. Continue anticoagulation Delfin Murcia MD Jan 11, 2017 19:31
--- NOTE | 2017-01-11 19:38 | PD.ONC.PN ---
Subjective Subjective Remarks slow clinically improvement says she is getting PT heparin GTT Objective Data Date Time Temp Pulse Resp B/P (MAP) Pulse Ox O2 Delivery O2 Flow Rate FiO2 01/11/17 17:11 98.0 97 16 146/84 (104) 94 01/11/17 12:54 97.4 100 18 161/76 (104) 92 01/11/17 09:29 94 Nasal Cannula 2.00 01/11/17 08:55 97.8 94 18 175/83 (113) 97 01/11/17 06:01 97.3 83 20 155/87 (109) 97 01/11/17 00:58 97.7 86 20 143/72 (95) 96 01/10/17 20:16 97.3 86 18 155/75 (101) 94 01/10/17 19:39 93 Nasal Cannula 4.00 01/11/17 01/11/17 01/11/17 07:00 15:00 23:00 Output Total 350 ml 550 ml Balance -350 ml -550 ml Result Diagram: 01/11/17 1238 01/11/17 1238 Laboratory Results Laboratory Tests Test 01/11/17 07:00 01/11/17 12:33 01/11/17 12:38 01/11/17 13:39 Prothrombin Time 28.8 SEC Prothromb Time International Ratio 2.5 RATIO Activated Partial Thromboplast Time 38.9 SEC 41.5 SEC Phosphorus Level 1.9 MG/DL White Blood Count 16.6 TH/MM3 Red Blood Count 3.51 MIL/MM3 Hemoglobin 10.5 GM/DL Hematocrit 32.5 % Mean Corpuscular Volume 92.4 FL Mean Corpuscular Hemoglobin 30.0 PG Mean Corpuscular Hemoglobin Concent 32.4 % Red Cell Distribution Width 15.1 % Platelet Count 190 TH/MM3 Mean Platelet Volume 11.5 FL Blood Urea Nitrogen 28 MG/DL Creatinine 0.39 MG/DL Random Glucose 147 MG/DL Total Protein 5.2 GM/DL Albumin 3.0 GM/DL Calcium Level 8.4 MG/DL Alkaline Phosphatase 135 U/L Aspartate Amino Transf (AST/SGOT) 65 U/L Alanine Aminotransferase (ALT/SGPT) 81 U/L Total Bilirubin 1.9 MG/DL Sodium Level 148 MEQ/L Potassium Level 3.9 MEQ/L Chloride Level 117 MEQ/L Carbon Dioxide Level 24.2 MEQ/L Anion Gap 7 MEQ/L Estimat Glomerular Filtration Rate 160 ML/MIN Culture Results Microbiology Date/Time Source Procedure Growth Status 01/10/17 07:03 Stool Stool Stool Occult Blood (MODESTA) - Final HEMOCCULT POSITIVE Complete 01/09/17 11:05 Stool Stool Stool Occult Blood (MODESTA) - Final HEMOCCULT POSITIVE Complete Imaging Studies Last 24 hours Impressions Chest X-Ray 01/11/17 0600 Signed Impressions: Service Date/Time: Wednesday, January 11, 2017 06:23 - CONCLUSION: Persistent areas of consolidation in the left lung. Barry Edward MD Administered Medications Medications (Trade) Dose Ordered Sig/Marilin Route PRN Reason Start Time Stop Time Status Last Admin Dose Admin Metronidazole 100 ml @ 100 mls/hr Q8H IV 01/05/17 22:00 01/11/17 14:05 Oxybenzone/ Padimate O/ Dimethicone (Blistex Lip [place]) 1 applic UNSCH PRN TOPICAL CHAPPED LIPS 01/05/17 21:00 01/10/17 17:57 Aspirin (Aspirin Chew) 81 mg DAILY CHEW 01/06/17 09:00 01/11/17 09:14 IV Flush (NS Flush) 2 ml BID IV FLUSH 01/06/17 21:00 01/11/17 09:00 Acetaminophen/ Hydrocodone Bitart ([place] 5-325 Mg) 1 tab Q4H PRN PO PAIN 1 TO 10 AND/OR AGITATION 01/06/17 17:30 01/08/17 05:26 Potassium Bicarb/ Potassium Chloride (K-Lyte Cl Eff) 25 meq Q12HR PO 01/07/17 12:45 01/11/17 09:19 Potassium Phos/ Sodium Phos (K-Phos Neutral) 250 mg Q8HR PO 01/07/17 14:00 01/11/17 14:05 Levofloxacin/ Dextrose 100 ml @ 100 mls/hr Q24H IV 01/08/17 15:00 01/11/17 14:55 Albuterol/ Ipratropium (Duoneb Neb) 1 ampule Q6HR WHILE AWAKE NEB NEB 01/07/17 20:00 01/11/17 08:00 Heparin Sodium/ Dextrose 250 ml @ 7 mls/hr TITRATE IV 01/07/17 19:45 01/09/17 21:05 Insulin Aspart (NovoLOG SUPPLEMENTAL SCALE) 1 ACHS SQ 01/07/17 21:00 01/10/17 21:00 Patient Own Medication PT OWN MED: (Teriflunomide (Aubagio)... DAILY PO 01/08/17 13:00 01/11/17 09:19 Phenazopyridine HCl (Pyridium) 100 mg Q8H PRN PO DYSURIA 01/08/17 13:00 01/11/17 14:06 Senna/Docusate Sodium (Jessi-Colace) 2 tab DAILY PO 01/08/17 13:15 01/11/17 09:13 Potassium Chloride 40 meq/ Sodium Chloride 38.5 meq/Sterile Water 1,029.625 ml @ 100 mls/hr [id number] IV 01/09/17 15:00 01/11/17 14:05 Insulin Detemir (Levemir Inj) 5 units Q12HR SQ 01/09/17 21:00 01/11/17 09:00 Warfarin Sodium (Coumadin) 2.5 mg DAILY@1600 PO 01/10/17 16:00 Future hold 01/11/17 14:56 Amlodipine Besylate (Norvasc) 5 mg DAILY PO 01/10/17 12:30 01/11/17 09:17 Mirtazapine (Remeron) 15 mg HS PO 01/10/17 21:00 01/10/17 21:53 Pantoprazole Sodium (Protonix Inj) 40 mg Q24H IV PUSH 01/10/17 17:00 01/11/17 17:40 Megestrol Acetate (Megace Liq) 400 mg DAILY PO 01/11/17 14:00 01/11/17 14:05 Objective Remarks GENERAL: thin, frail, cachectic SKIN: Warm and dry. HEAD: Normocephalic. EYES: No scleral icterus. No injection or drainage. NECK: Supple, trachea midline. No JVD or lymphadenopathy. LYMPHATIC: No adenopathy. CARDIOVASCULAR: Regular rate and rhythm without murmurs. RESPIRATORY: Breath sounds equal bilaterally. No accessory muscle use. GASTROINTESTINAL: Abdomen soft, non-tender, nondistended. EXTREMITIES: No cyanosis, or edema. Assessment/Plan Problem List: (1) Expressive aphasia ICD Codes: R47.01 - Aphasia Status: Acute (2) Multiple sclerosis ICD Codes: G35 - Multiple sclerosis Status: Chronic (3) Encephalopathy acute ICD Codes: G93.40 - Encephalopathy, unspecified (4) CVA (cerebral vascular accident) ICD Codes: I63.9 - Cerebral infarction, unspecified Status: Acute (5) Acute ischemic left MCA stroke ICD Codes: I63.512 - Cerebral infarction due to unspecified occlusion or stenosis of left middle cerebral artery Assessment 76-year-old female with a history of multiple sclerosis, DVT and pulmonary embolism and has had recurrent strokes. 1. Recurrent strokes. History of bilateral DVT and pulmonary embolism. -On Coumadin hold INR 2.7 - Continue Heparin GTT for at least 72 hours until her INR is greater than 2. Goal of the INR would be between 2 and 3. This patient will require indefinite anticoagulation. 2. History of multiple sclerosis. 3. Normocytic anemia - anemia of chronic disease d/w rn o/n events reviewed Problem Qualifiers (1) CVA (cerebral vascular accident): Tomas Yarbrough MD Jan 11, 2017 19:38
[2017-01-11 20:37] LABS: APTT (PATIENT) 46.1 SEC (24.3-30.1)
[2017-01-11 21:20] LABS: ANION GAP 7 MEQ/L (5-15); AST (GOT) 59 U/L (15-37); BICARBONATE 23.1 MEQ/L (21.0-32.0); BLOOD UREA NITROGEN 27 MG/DL (7-18); CHLORIDE 117 MEQ/L (98-107); GLOMERULAR FILTRATION RATE 170 ML/MIN (>89); MAGNESIUM 1.9 MG/DL (1.5-2.5); POTASSIUM 4.1 MEQ/L (3.5-5.1); SODIUM (NA) 147 MEQ/L (136-145)
[2017-01-11 21:21] LABS: ALT (GPT) 74 U/L (10-53)
[2017-01-11 21:23] LABS: ALKALINE PHOSPHATASE 120 U/L (45-117); TOTAL BILIRUBIN ADULT 1.3 MG/DL (0.2-1.0)
[2017-01-11] MEDS: MIRTAZAPINE 15 MG TAB PO SCH (21:41)
[2017-01-11 21:54] LABS: INTERNATIONAL NORMALIZED RATIO 2.7 RATIO; PROTHROMBIN TIME - PATIENT 31.7 SEC (9.8-11.6)
[2017-01-11] MEDS ORDERED: FAT EMULSION 20% INJ 250 ML (@10 mls/hr) IV SCH (22:00)
[2017-01-11] MEDS ORDERED: CLINIMIX E 4.25/5 1000 mL- </= 42 mls/hr IV SCH ×3 (22:00)
[2017-01-11 23:09] LABS: AUTOMATED NEUTROPHIL # 13.6 TH/MM3 (1.8-7.7); BASOPHIL % 0.1 % (0.0-2.0); HEMATOCRIT 28.1 % (35.0-46.0); HEMO FLAGS DIFF FINAL; LYMPH % 2.4 % (9.0-44.0); LYMPHOCYTE # 0.4 TH/MM3 (1.0-4.8); MEAN CELL VOLUME 92.2 FL (80.0-100.0); MEAN CORPUSCULAR HEMOGLOBIN 30.5 PG (27.0-34.0); MONO % 5.4 % (0.0-8.0); NEUT % 92.1 % (16.0-70.0); PLATELET COUNT 162 TH/MM3 (150-450); RED BLOOD COUNT 3.05 MIL/MM3 (4.00-5.30); RED CELL DISTRIBUTION WIDTH 14.7 % (11.6-17.2); WHITE BLOOD COUNT 14.7 TH/MM3 (4.0-11.0)
[2017-01-12] VITALS (8 sets, daily range): BP systolic 108–164; BP diastolic 59–92; PULSE 73–116; RESP 16–21; TEMP 97.2–98.1; O2SAT 90–95
[2017-01-12] MEDS: HEPARIN-D5W 25,000 U/250 ML 250 ML IV SCH (00:55)
[2017-01-12] MEDS: POTASSIUM PHOSPHATE/SODIUM PHOSPHATE 250 MG TAB PO SCH ×4 (06:22→22:24)
[2017-01-12 06:45] LABS: INTERNATIONAL NORMALIZED RATIO 2.2 RATIO; PROTHROMBIN TIME - PATIENT 24.9 SEC (9.8-11.6)
[2017-01-12 06:48] LABS: AUTOMATED NEUTROPHIL # 17.1 TH/MM3 (1.8-7.7); BASOPHIL % 0.1 % (0.0-2.0); EOSINOPHIL % 0.1 % (0.0-4.0); HEMATOCRIT 30.1 % (35.0-46.0); HEMO FLAGS DIFF FINAL; LYMPH % 3.7 % (9.0-44.0); LYMPHOCYTE # 0.7 TH/MM3 (1.0-4.8); MEAN CELL VOLUME 92.6 FL (80.0-100.0); MEAN CORPUSCULAR HEMOGLOBIN 30.5 PG (27.0-34.0); MEAN CORPUSCULAR HGB CONC 32.9 % (32.0-36.0); MONO % 3.8 % (0.0-8.0); NEUT % 92.3 % (16.0-70.0); PLATELET COUNT 176 TH/MM3 (150-450); RED BLOOD COUNT 3.25 MIL/MM3 (4.00-5.30); RED CELL DISTRIBUTION WIDTH 15.4 % (11.6-17.2); WHITE BLOOD COUNT 18.6 TH/MM3 (4.0-11.0)
[2017-01-12 06:59] LABS: ANION GAP 7 MEQ/L (5-15); AST (GOT) 53 U/L (15-37); BICARBONATE 24.1 MEQ/L (21.0-32.0); BLOOD UREA NITROGEN 24 MG/DL (7-18); CHLORIDE 114 MEQ/L (98-107); GLOMERULAR FILTRATION RATE 245 ML/MIN (>89); SODIUM (NA) 145 MEQ/L (136-145)
[2017-01-12 07:03] LABS: ALKALINE PHOSPHATASE 118 U/L (45-117); ALT (GPT) 68 U/L (10-53); TOTAL BILIRUBIN ADULT 1.1 MG/DL (0.2-1.0)
--- NOTE | 2017-01-12 10:17 | HHI.PR ---
Subjective Remarks This is a pleasant 76 y/o Female with Multiple sclerosis, Hyperlipidemia, DVT and PE on Xarelto CVA with expressive Aphasia, The patient was admitted for the hospital in [place] on 12/21/16 with sudden onset of slurred speech and right-sided facial droop. The patient was evaluated by neurology, Dr. Philip Fountain for acute CVA. MRI was obtained and it showed a 3 cm triangular area of abnormal signal and restricted flow involving the left temporal lobe, sylvian fissure into the basal ganglia consistent with acute infarct of the left MCA distribution. There is also reported one episode of lethargy with repeat CT brain showing evolution of the left MCA territory ischemia/infarction without hemorrhagic conversion. CT was ordered showed a new acute to subacute right posterior parietal/occipital mild convexity infarct. It showed evolving infarct involving the medial left occipital mild complexities, left mid parietal high convexities and mid right parietal high convexities. followed by technical information specialist, with Diagnosis of Expressive aphasia, Multiple sclerosis Encephalopathy acute, CVA, Acute ischemic left MCA stroke, Recurrent strokes, INR today 2.2 indefinite anticoagulation recommended. certified peer specialist following, with Diagnosis of Aspiration Pneumonia with Hypoxemia, to continue Oxygen at 2 L/min. Bronchodilator, Swallow evaluation, Discontinued Clindamycin. 01/12: Seen in her bedroom in the presence at all times of Nurse Adeline, discussed with her present in the room and her Daughter through the Phone, they will decide about the PICC line placement recommended by Vascular team the patient needs to receive TPN and antibiotics and Heparin and there's no enough access at this time, but the family did not decided yet, also her asking for Feeding tube, Calorie count in progress , recommended GI specialist to continue [place] thickened liquids, Ensure enlive BID, ensure Pudding, Calorie count, Megace and Remeron. Objective Vital Signs Date Time Temp Pulse Resp B/P (MAP) Pulse Ox O2 Delivery O2 Flow Rate FiO2 01/12/17 09:36 95 Nasal Cannula 4.00 01/12/17 08:00 97.2 107 16 153/74 (100) 92 01/12/17 05:09 97.7 93 21 164/92 (116) 92 01/12/17 00:14 98.0 73 16 145/84 (104) 92 01/11/17 20:00 78 01/11/17 17:11 98.0 97 16 146/84 (104) 94 01/11/17 12:54 97.4 100 18 161/76 (104) 92 I/O 01/11/17 01/11/17 01/11/17 01/12/17 01/12/17 01/12/17 06:59 14:59 22:59 06:59 14:59 22:59 Intake Total 98 ml 443 ml Output Total 350 ml 550 ml 350 ml 500 ml Balance -350 ml -452 ml 93 ml -500 ml IV Total 98 ml 443 ml Output Urine Total 350 ml 550 ml 350 ml 500 ml Bladder Scan Volume Amount 253 ml 500 ml 372 ml # Voids 2 0 Result Diagram: 01/12/17 0512 01/12/17 0512 Imaging Last Impressions Chest X-Ray 01/11/17 0600 Signed Impressions: Service Date/Time: Wednesday, January 11, 2017 06:23 - CONCLUSION: Persistent areas of consolidation in the left lung. Barry Edward MD Head CT 01/07/17 0000 Signed Impressions: Service Date/Time: Saturday, January 07, 2017 09:43 - CONCLUSION: 1. Multiple evolving bilateral cerebral infarcts involving both anterior and posterior circulation territories, as above. Differential considerations include embolism or vasculitis. 2. No significant intercurrent hemorrhage, herniation, or hydrocephalus. German Bloom MD Neck CTA 01/06/17 0000 Signed Impressions: Service Date/Time: Friday, January 06, 2017 19:10 - CONCLUSION: Normal CTA carotids. David Jordan MD Brain MRI 01/06/17 0000 Signed Impressions: Service Date/Time: Friday, January 06, 2017 18:49 - CONCLUSION: 1. Acute nonhemorrhagic infarction in the right MCA ART MUSEUM AIDE watershed zone. 2. Subacute infarctions with possible subacute blood products in the left occipital and left suprasylvian parietal region. 3. Subacute infarction in the right posterior insula without evidence of blood products. David Jordan MD Procedures None Other Results Laboratory Tests Test 01/06/17 21:12 01/07/17 23:42 01/08/17 08:14 01/10/17 08:26 Erythrocyte Sedimentation Rate 5 mm/hr C-Reactive Protein LESS THAN 0.29 MG/DL Anti-Nuclear Antibody Screen NEG Anti-Proteinase 3 (c-ANCA) LESS THAN 1.0 AI Anti-Myeloperoxidase Ab (p-ANCA) LESS THAN 1.0 AI Hemoglobin A1c 5.4 % Cholesterol Level 233 MG/DL LDL Cholesterol 134 MG/DL HDL Cholesterol 59.5 MG/DL Cholesterol/HDL Ratio 3.91 RATIO Iron Level 219 MCG/DL Total Iron Binding Capacity 225 MCG/DL Percent Iron Saturation 97.2 % Ferritin 930 NG/ML Vitamin B12 Level 594 PG/ML Test 01/11/17 19:50 01/12/17 05:12 Triglycerides Level 191 MG/DL White Blood Count 18.6 TH/MM3 Red Blood Count 3.25 MIL/MM3 Hemoglobin 9.9 GM/DL Hematocrit 30.1 % Mean Corpuscular Volume 92.6 FL Mean Corpuscular Hemoglobin 30.5 PG Mean Corpuscular Hemoglobin Concent 32.9 % Red Cell Distribution Width 15.4 % Platelet Count 176 TH/MM3 Mean Platelet Volume 11.9 FL Neutrophils (%) (Auto) 92.3 % Lymphocytes (%) (Auto) 3.7 % Monocytes (%) (Auto) 3.8 % Eosinophils (%) (Auto) 0.1 % Basophils (%) (Auto) 0.1 % Neutrophils # (Auto) 17.1 TH/MM3 Lymphocytes # (Auto) 0.7 TH/MM3 Monocytes # (Auto) 0.7 TH/MM3 Eosinophils # (Auto) 0.0 TH/MM3 Basophils # (Auto) 0.0 TH/MM3 CBC Comment DIFF FINAL Differential Comment Prothrombin Time 24.9 SEC Prothromb Time International Ratio 2.2 RATIO Activated Partial Thromboplast Time 51.0 SEC Blood Urea Nitrogen 24 MG/DL Creatinine 0.27 MG/DL Random Glucose 129 MG/DL Total Protein 4.7 GM/DL Albumin 2.7 GM/DL Calcium Level 8.3 MG/DL Phosphorus Level 2.4 MG/DL Magnesium Level 2.0 MG/DL Alkaline Phosphatase 118 U/L Aspartate Amino Transf (AST/SGOT) 53 U/L Alanine Aminotransferase (ALT/SGPT) 68 U/L Total Bilirubin 1.1 MG/DL Sodium Level 145 MEQ/L Potassium Level 4.0 MEQ/L Chloride Level 114 MEQ/L Carbon Dioxide Level 24.1 MEQ/L Anion Gap 7 MEQ/L Estimat Glomerular Filtration Rate 245 ML/MIN Objective Remarks GENERAL: Awake and alert, no acute distress. Confused. SKIN: Warm and dry. HEAD: Atraumatic. Normocephalic. EYES: Pupils equal and round. No scleral icterus. No injection or drainage. ENT: No nasal bleeding or discharge. Mucous membranes pink and moist. NECK: Trachea midline. No JVD. CARDIOVASCULAR: Regular rate and rhythm. RESPIRATORY: No accessory muscle use. Clear to auscultation. Breath sounds equal bilaterally. GASTROINTESTINAL: Abdomen soft, non-tender, nondistended. Beckman Cath in place. with Clearing Hematuria. MUSCULOSKELETAL: Extremities without clubbing, cyanosis, or edema. No obvious deformities. NEUROLOGICAL: Awake and alert. Right Hemiparesis. confused. PSYCHIATRIC: Appropriate mood and affect; insight and judgment normal. Medications and IVs Current Medications Medications (Trade) Dose Ordered Sig/Marilin Route Start Time Stop Time Status Last Admin (Narcan Inj) 0.4 mg UNSCH PRN IV PUSH 01/05/17 21:00 Metronidazole 100 ml @ 100 mls/hr Q8H IV 01/05/17 22:00 01/11/17 21:47 (Fioricet 325-50-40) 1 tab Q8H PRN PO 01/05/17 21:00 (Blistex Lip [place]) 1 applic UNSCH PRN TOPICAL 01/05/17 21:00 01/10/17 17:57 (Aspirin Chew) 81 mg DAILY CHEW 01/06/17 09:00 01/11/17 09:14 (Zofran Inj) 4 mg Q6HR PRN IV PUSH 01/05/17 21:00 (Pill Splitter) 1 ea UNSCH PRN OTHER 01/05/17 21:45 (NS Flush) 2 ml BID IV FLUSH 01/06/17 21:00 01/11/17 23:20 (NS Flush) 2 ml UNSCH PRN IV FLUSH 01/06/17 10:15 ([place] 5-325 Mg) 1 tab Q4H PRN PO 01/06/17 17:30 01/08/17 05:26 (K-Lyte Cl Eff) 25 meq Q12HR PO 01/07/17 12:45 01/11/17 09:19 (K-Phos Neutral) 250 mg Q8HR PO 01/07/17 14:00 01/11/17 21:41 Levofloxacin/ Dextrose 100 ml @ 100 mls/hr Q24H IV 01/08/17 15:00 01/11/17 14:55 Heparin Sodium/ Dextrose 250 ml @ 7 mls/hr TITRATE IV 01/07/17 19:45 01/12/17 00:55 (NovoLOG SUPPLEMENTAL SCALE) 1 ACHS SQ 01/07/17 21:00 01/10/17 21:00 (D50w (Vial) Inj) 50 ml UNSCH PRN IV PUSH 01/07/17 19:45 (Glucagon Inj) 1 mg UNSCH PRN OTHER 01/07/17 19:45 Patient Own Medication PT OWN MED: (Teriflunomide (Aubagio)... DAILY PO 01/08/17 13:00 01/11/17 09:19 (Pyridium) 100 mg Q8H PRN PO 01/08/17 13:00 01/11/17 14:06 (B & O Supp) 60 mg Q6HR PRN RECTAL 01/08/17 13:00 (Jessi-Colace) 2 tab DAILY PO 01/08/17 13:15 01/11/17 09:13 Potassium Chloride 40 meq/ Sodium Chloride 38.5 meq/Sterile Water 1,029.625 ml @ 100 mls/hr [id number] IV 01/09/17 15:00 Future Hold 01/11/17 14:05 (Levemir Inj) 5 units Q12HR SQ 01/09/17 21:00 01/11/17 21:00 (Coumadin) 2.5 mg DAILY@1600 PO 01/10/17 16:00 Future hold 01/11/17 14:56 Pharmacy Profile Note 0 ml @ 0 mls/hr UNSCH OTHER 01/10/17 00:00 (Norvasc) 5 mg DAILY PO 01/10/17 12:30 01/11/17 09:17 (Xanax) 0.25 mg Q6H PRN PO 01/10/17 14:00 (Remeron) 15 mg HS PO 01/10/17 21:00 01/11/17 21:41 (Protonix Inj) 40 mg Q24H IV PUSH 01/10/17 17:00 01/11/17 17:40 (Megace Liq) 400 mg DAILY PO 01/11/17 14:00 01/11/17 14:05 Multivitamins 10 ml/Folic Acid 1 mg/Amino Acids/ Electrolytes/ Dextrose 1,010.2 ml @ 42 mls/hr Q24H IV 01/11/17 22:00 01/12/17 19:59 01/11/17 23:20 Fat Emulsion Intravenous 250 ml @ 10 mls/hr Q24H IV 01/11/17 22:00 01/12/17 19:59 01/11/17 23:21 Multivitamins 10 ml/Folic Acid 1 mg/Amino Acids/ Electrolytes/ Dextrose 1,010.2 ml @ 42 mls/hr Q24H IV 01/12/17 20:00 Fat Emulsion Intravenous 250 ml @ 10 mls/hr Q24H IV 01/12/17 20:00 A/P Assessment and Plan 1. Encephalopathy acute Resolved. Multifactorial secondary to CVA, UTI and aspiration pneumonia. A CT scan of the head showed a new left posterior CVA. Neurology was consulted and is following the patient. Initially the patient was on aspirin on Xarelto. Xarelto was discontinued and the patient was placed on IV heparin drip given that the patient had hematuria which eventually resolved. Hematology was consulted due to the patient having had a stroke while on Xarelto. Hematology recommended bridging with heparin/Lovenox subcutaneously 72 hours to Coumadin with an INR goal of 2- 3. They made a special recommendation to keep the patient on heparin drip 72 hours once the INR was at goal. 2. Decreased Appetite on Megace, Plan Coordinator following 3. Urinary Retention, has Beckman Cath. on Flomax 4. Recurrent CVA, Likely thromboembolic, MRI of the brain was done and described as above showed a nonacute hemorrhagic infarction in the right MCA ART MUSEUM AIDE watershed zone. It also showed possibility of subacute blood products in the left occipital and left suprasylvian parietal region. CT of the head was ordered and did not show any major bleeding. Therefore neurology decided to continue anticoagulation. 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 2D Echocardiogram showed a normal left ventricular size with a grade 1 diastolic dysfunction. However no thrombus was observed. There is moderate to severe tricuspid regurgitation and pulmonary hypertension with a pressure of [address] chest as mentioned above shows a right upper lobe infiltrate and superior segment of the left lower lobe with nearly masslike focal airspace consolidation in the left lower lobe containing air bronchograms measuring 2.42.1 cm. Suspect aspiration pneumonia. certified peer specialist following, NEW CXR shows an improving left lower lobe consolidation. Discontinue clindamycin. Continue IV Levaquin and IV Flagyl. 6. History of Pulmonary Embolism initially on Xarelto, 7. UTI treated with Levaquin. The patient developed hematuria. Urology consulted. Urine cultures grew Escherichia coli which was sensitive to quinolones.Urology recommended keeping the Beckman to drainage initially and to the hematuria resolved. Beckman catheter was discontinued on 01/10 with the patient having some urinary retention. 7. Expressive Aphasia Speech therapy following. 8. Dysphagia Speech therapy following. 9. Multiple sclerosis continue Solu-Medrol 250 mg IV every six hours. 10. Hypertension better control 11. Elevated Troponin Echo shows normal systolic function, grade 1 diastolic function but no intracardiac thrombus reported. foreclosure specialist following. 12. Anemia Hemoccult positive 2. Hemoglobin monitor and trended and slowly trending down, 10.4 today. GI consulted. As per GI report it was decided to not do endoscopy or colonoscopy in the patient and to monitor the hemoglobin. Continue PPI and continue to follow-up GI recommendations. Acute to monitor CBC 13. Depression on Remeron 15 mg at bedtime, consulted Psychiatry specialist for recommendations. 14. Anxiety disorder Xanax as needed. Discussed with patient, her Mr. Abhinav Curiel, her Daughter and nurse Miss Lr appreciated, all questions answered to the best of my abilities. Discharge Planning Not yet cleared for discharge. Anthony Gamez MD Jan 12, 2017 10:17
[2017-01-12] MEDS: INSULIN ASPART SUPPLEMENTAL SCALE SQ SCH ×4 (10:23→21:00)
[2017-01-12] MEDS: amLODIPine BESYLATE 5 MG TAB PO SCH (10:24)
[2017-01-12] MEDS: TERIFLUNOMIDE 14 MG PO SCH (10:25)
[2017-01-12] MEDS: DOCUSATE SODIUM 50 MG/SENNA 8.6 MG TAB PO SCH (10:25)
[2017-01-12] MEDS: POTASSIUM CHLORIDE 25 MEQ EFFERVESCENT TAB PO SCH ×2 (10:25→22:23)
[2017-01-12] MEDS: INSULIN DETEMIR 100 UNITS/ML VIAL SQ SCH ×2 (10:25→21:00)
[2017-01-12] MEDS: MEGESTROL ACETATE SUSP 400 MG/10 ML CUP PO SCH (10:25)
[2017-01-12] MEDS: ASPIRIN 81 MG CHEW TAB CHEW SCH (10:26)
[2017-01-12] MEDS: SODIUM CHLORIDE 0.9% FLUSH 5 ML FLUSH IV FLUSH SCH ×2 (10:26→21:00)
[2017-01-12] MEDS: metroNIDAZOLE 500 MG INJ 100 ML IV SCH ×2 (13:51→22:24)
[2017-01-12] MEDS: LEVOFLOXACIN 500 MG PREMIX INJ 100 ML IV SCH (13:52)
--- NOTE | 2017-01-12 15:11 | HHI.GIFU ---
Subjective Remarks Pt resting in bed, at bedside. He said the family is seriously considering feeding tube. Would like to discuss with them further before making decision. (Ana Rosa Angel) Objective Vitals I&O Vital Signs Date Time Temp Pulse Resp B/P (MAP) Pulse Ox O2 Delivery O2 Flow Rate FiO2 01/12/17 12:00 97.2 101 18 135/71 (92) 92 01/12/17 09:36 95 Nasal Cannula 4.00 01/12/17 08:00 97.2 107 16 153/74 (100) 92 01/12/17 05:09 97.7 93 21 164/92 (116) 92 01/12/17 00:14 98.0 73 16 145/84 (104) 92 01/11/17 20:00 78 01/11/17 17:11 98.0 97 16 146/84 (104) 94 I/O 01/11/17 01/11/17 01/11/17 01/12/17 01/12/17 01/12/17 07:00 15:00 23:00 07:00 15:00 23:00 Intake Total 98 ml 443 ml 60 ml Output Total 350 ml 550 ml 350 ml 500 ml Balance -350 ml -452 ml 93 ml -440 ml IV Total 98 ml 443 ml 60 ml Output Urine Total 350 ml 550 ml 350 ml 500 ml Bladder Scan Volume Amount 253 ml 500 ml 372 ml # Voids 2 0 Laboratory Laboratory Tests Test 01/11/17 19:50 01/11/17 22:50 01/12/17 05:12 Prothrombin Time 31.7 24.9 Prothromb Time International Ratio 2.7 2.2 Activated Partial Thromboplast Time 46.1 51.0 Blood Urea Nitrogen 27 24 Creatinine 0.37 0.27 Random Glucose 134 129 Total Protein 4.7 4.7 Albumin 2.7 2.7 Calcium Level 8.2 8.3 Phosphorus Level 1.8 2.4 Magnesium Level 1.9 2.0 Alkaline Phosphatase 120 118 Aspartate Amino Transf (AST/SGOT) 59 53 Alanine Aminotransferase (ALT/SGPT) 74 68 Total Bilirubin 1.3 1.1 Sodium Level 147 145 Potassium Level 4.1 4.0 Chloride Level 117 114 Carbon Dioxide Level 23.1 24.1 Anion Gap 7 7 Estimat Glomerular Filtration Rate 170 245 Triglycerides Level 191 White Blood Count 14.7 18.6 Red Blood Count 3.05 3.25 Hemoglobin 9.3 9.9 Hematocrit 28.1 30.1 Mean Corpuscular Volume 92.2 92.6 Mean Corpuscular Hemoglobin 30.5 30.5 Mean Corpuscular Hemoglobin Concent 33.0 32.9 Red Cell Distribution Width 14.7 15.4 Platelet Count 162 176 Mean Platelet Volume 11.3 11.9 Neutrophils (%) (Auto) 92.1 92.3 Lymphocytes (%) (Auto) 2.4 3.7 Monocytes (%) (Auto) 5.4 3.8 Eosinophils (%) (Auto) 0.0 0.1 Basophils (%) (Auto) 0.1 0.1 Neutrophils # (Auto) 13.6 17.1 Lymphocytes # (Auto) 0.4 0.7 Monocytes # (Auto) 0.8 0.7 Eosinophils # (Auto) 0.0 0.0 Basophils # (Auto) 0.0 0.0 CBC Comment DIFF FINAL DIFF FINAL Differential Comment Date/Time Source Procedure Growth Status 01/10/17 07:03 Stool Stool Stool Occult Blood (MODESTA) - Final HEMOCCULT POSITIVE Complete Imaging Last Impressions Chest X-Ray 01/11/17 0600 Signed Impressions: Service Date/Time: Wednesday, January 11, 2017 06:23 - CONCLUSION: Persistent areas of consolidation in the left lung. Barry Edward MD Head CT 01/07/17 0000 Signed Impressions: Service Date/Time: Saturday, January 07, 2017 09:43 - CONCLUSION: 1. Multiple evolving bilateral cerebral infarcts involving both anterior and posterior circulation territories, as above. Differential considerations include embolism or vasculitis. 2. No significant intercurrent hemorrhage, herniation, or hydrocephalus. German Bloom MD Neck CTA 01/06/17 0000 Signed Impressions: Service Date/Time: Friday, January 06, 2017 19:10 - CONCLUSION: Normal CTA carotids. David Jordan MD Brain MRI 01/06/17 0000 Signed Impressions: Service Date/Time: Friday, January 06, 2017 18:49 - CONCLUSION: 1. Acute nonhemorrhagic infarction in the right MCA TREE THINNER watershed zone. 2. Subacute infarctions with possible subacute blood products in the left occipital and left suprasylvian parietal region. 3. Subacute infarction in the right posterior insula without evidence of blood products. David Jordan MD Physical Exam HEENT: Normocephalic; atraumatic; no jaundice. CHEST: Resp. even/unlabored CARDIAC: RRR. ABDOMEN: Soft, nondistended, nontender; no hepatosplenomegaly; bowel sounds are present in all four quadrants. EXTREMITIES: No clubbing, cyanosis, or edema. SKIN: Normal; no rash; no jaundice. SANITARY INSPECTOR: Lethargic, generalized weakness. (Ana Rosa Angel TEMPERER) Assessment and Plan Plan - Anemia with hemoccult positive stool in patient requiring anticoagulation. Pt with hx of DVT and was at [facility] for an ischemic left MCA distribution stroke at another facility. She then developed a new new right posterior parietal occipital cva while on Xarelto. Her H/H is slowly trending down and she was noted to have hemoccult positive stool. She is now on a heparin gtt and GI has been consulted for egd/colonoscopy to rule out GIB. Pt denies GI symptoms other than occasional heartburn/reflux and constipation (controlled). Her last colonoscopy was 10-20 years ago and she had a polyp removed. Her mother from colon cancer at age 4 - Dysphagia, decreased appetite. ST following. Puree diet with nectar thickened liquids. Family reports that she is only taking small bites/sips with each meal. D/W possible need for feeding tube for supplemental feedings until she can take enough orally. Industrial Arts Teacher following, recommends ensure enlive bid, calorie count is in progress. On remeron. Megace. - Elevated LFTs. T. Bili 1.9, AST 65, ALT 81, ALk PHosph 135. - Ischemic left MCA distribution stroke, new right posterior parietal occipital cva while on xarelto. Now on heparin, neuro following. - Multiple sclerosis. Per neuro. - Hyperlipidemia, electrolyte abnormalities. per attending. 01/12/17 FAmily now considering feeding tube. d/w . Pt still not eating much. HH stable since yesterday. calorie count in progress PLAN: - Puree diet with nectar thickened liquids - Ensure enlive BID - Ensure pudding - Calorie count in progress - continue Megace/Remeron - family considering feeding tube - supportive care - Pt seen and examined by Dr. Clya and myself and this note is written on her behalf (Ana Rosa Angel) Physician Comments ppn ordered mild elevated [id number] us we will await family decision about nutrition (Radha Clay MD) Ana Rosa Angel Jan 12, 2017 15:11 Radha Clay MD Jan 12, 2017 16:00
[2017-01-12] MEDS ORDERED: WARFARIN SOD 3 MG TAB PO ONE (16:00)
--- NOTE | 2017-01-12 17:05 | PD.PSY.CON ---
Provisional Diagnosis Admission Date Jan 05, 2017 at 19:58 [place] I. 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 Asked to see related to her emotional and mood reaction to the neurological issues. Patient seen in her room with her and son present throughout session. Patient is laying quietly in bed she is alert she does respond quite appropriately through her mild word seeking issues. Her son states that she is sleeping well that she appears to be in good spirits. She does denies suicidality. She does deny voices. Family states patient has no prior psychiatric history contact her psychotropic medications. At the present time she is on Remeron 15 mg at at bedtime. At this time I recommend continuing that dose. At this time also patient is not a candidate for referral to the psychiatric unit or to the med psych unit. I feel it is also treatment team to determine patient would need a rehabilitation program. Thanks for consult I will sign off at the present time Review of Systems ROS Limitations: Clinical Condition, Altered Mental Status Except as stated in HPI: all other systems reviewed are Neg Past Family Social History Coded Allergies: Sulfa (Sulfonamide Antibiotics) (Verified Allergy, Intermediate, 12/28/16) hives Penicillins (Verified Allergy, Unknown, 12/28/16) childhood reaction unknown Past Medical History Please see MedSur assessment Reported Medications Teriflunomide (Aubagio) 14 Mg Tab, 14 MG PO DAILY for Multiple sclerosis, #30 TAB 0 Refills 12/28/16 Rivaroxaban (Xarelto) 15 Mg Tab, 15 MG PO DAILY for Blood Clot Prevention, TAB 0 Refills 12/28/16 Discontinued Reported Medications Gabapentin (Gabapentin) 300 Mg Cap, 300 MG PO QID, #90 CAP 0 Refills 12/28/16 Simvastatin (Simvastatin) 40 Mg Tab, 40 MG PO HS for Cholesterol Management, # 30 TAB 0 Refills 12/28/16 Erythromycin Opth Oint (Erythromycin Opth Oint) 5 Mg/Gm Oint, 1 APPLIC EACH EYE QID for Infection for 7 Days, #1 TUBE 0 Refills 12/28/16 Amlodipine (Amlodipine) 5 Mg Tab, 5 MG PO DAILY for Blood Pressure Management, # 30 TAB 0 Refills 12/28/16 Current Medications Medications (Trade) Dose Ordered Sig/Marilin Route Start Time Stop Time Status Last Admin (Narcan Inj) 0.4 mg UNSCH PRN IV PUSH 01/05/17 21:00 Metronidazole 100 ml @ 100 mls/hr Q8H IV 01/05/17 22:00 01/12/17 13:51 (Fioricet 325-50-40) 1 tab Q8H PRN PO 01/05/17 21:00 (Blistex Lip [place]) 1 applic UNSCH PRN TOPICAL 01/05/17 21:00 01/10/17 17:57 (Aspirin Chew) 81 mg DAILY CHEW 01/06/17 09:00 01/12/17 10:26 (Zofran Inj) 4 mg Q6HR PRN IV PUSH 01/05/17 21:00 (Pill Splitter) 1 ea UNSCH PRN OTHER 01/05/17 21:45 (NS Flush) 2 ml BID IV FLUSH 01/06/17 21:00 01/12/17 10:26 (NS Flush) 2 ml UNSCH PRN IV FLUSH 01/06/17 10:15 ([place] 5-325 Mg) 1 tab Q4H PRN PO 01/06/17 17:30 01/08/17 05:26 (K-Lyte Cl Eff) 25 meq Q12HR PO 01/07/17 12:45 01/11/17 09:19 (K-Phos Neutral) 250 mg Q8HR PO 01/07/17 14:00 01/12/17 13:51 Levofloxacin/ Dextrose 100 ml @ 100 mls/hr Q24H IV 01/08/17 15:00 01/12/17 13:52 (NovoLOG SUPPLEMENTAL SCALE) 1 ACHS SQ 01/07/17 21:00 01/10/17 21:00 (D50w (Vial) Inj) 50 ml UNSCH PRN IV PUSH 01/07/17 19:45 (Glucagon Inj) 1 mg UNSCH PRN OTHER 01/07/17 19:45 Patient Own Medication PT OWN MED: (Teriflunomide (Aubagio)... DAILY PO 01/08/17 13:00 01/12/17 10:25 (Pyridium) 100 mg Q8H PRN PO 01/08/17 13:00 01/11/17 14:06 (B & O Supp) 60 mg Q6HR PRN RECTAL 01/08/17 13:00 (Jessi-Colace) 2 tab DAILY PO 01/08/17 13:15 01/12/17 10:25 Potassium Chloride 40 meq/ Sodium Chloride 38.5 meq/Sterile Water 1,029.625 ml @ 100 mls/hr [id number] IV 01/09/17 15:00 Future Hold 01/11/17 14:05 (Levemir Inj) 5 units Q12HR SQ 01/09/17 21:00 01/12/17 10:25 (Coumadin) 2.5 mg DAILY@1600 PO 01/10/17 16:00 Future Hold 01/11/17 14:56 Pharmacy Profile Note 0 ml @ 0 mls/hr UNSCH OTHER 01/10/17 00:00 (Norvasc) 5 mg DAILY PO 01/10/17 12:30 01/12/17 10:24 (Xanax) 0.25 mg Q6H PRN PO 01/10/17 14:00 (Remeron) 15 mg HS PO 01/10/17 21:00 01/11/17 21:41 (Protonix Inj) 40 mg Q24H IV PUSH 01/10/17 17:00 01/11/17 17:40 (Megace Liq) 400 mg DAILY PO 01/11/17 14:00 01/12/17 10:25 Multivitamins 10 ml/Folic Acid 1 mg/Amino Acids/ Electrolytes/ Dextrose 1,010.2 ml @ 42 mls/hr Q24H IV 01/11/17 22:00 01/12/17 19:59 01/11/17 23:20 Fat Emulsion Intravenous 250 ml @ 10 mls/hr Q24H IV 01/11/17 22:00 01/12/17 19:59 01/11/17 23:21 Multivitamins 10 ml/Folic Acid 1 mg/Amino Acids/ Electrolytes/ Dextrose 1,010.2 ml @ 42 mls/hr Q24H IV 01/12/17 20:00 Fat Emulsion Intravenous 250 ml @ 10 mls/hr Q24H IV 01/12/17 20:00 Family Psych History None noted Social History Patient lives with of 57 years Patient's Strengths (min. 2) Patient is quite supportive family is calm cooperative Physical Exam Please see MedSur assessment Vital Signs Vital Signs Date Time Temp Pulse Resp B/P (MAP) Pulse Ox O2 Delivery O2 Flow Rate FiO2 01/12/17 12:00 97.2 101 18 135/71 (92) 92 01/12/17 09:36 Nasal Cannula 4.00 I/O 01/12/17 01/12/17 01/13/17 08:00 16:00 00:00 Intake Total 443 ml 60 ml Output Total 850 ml Balance -407 ml 60 ml Lab Results Test 01/11/17 19:50 01/11/17 22:50 01/12/17 05:12 Prothrombin Time 31.7 SEC 24.9 SEC Prothromb Time International Ratio 2.7 RATIO 2.2 RATIO Activated Partial Thromboplast Time 46.1 SEC 51.0 SEC Blood Urea Nitrogen 27 MG/DL 24 MG/DL Creatinine 0.37 MG/DL 0.27 MG/DL Random Glucose 134 MG/DL 129 MG/DL Total Protein 4.7 GM/DL 4.7 GM/DL Albumin 2.7 GM/DL 2.7 GM/DL Calcium Level 8.2 MG/DL 8.3 MG/DL Phosphorus Level 1.8 MG/DL 2.4 MG/DL Magnesium Level 1.9 MG/DL 2.0 MG/DL Alkaline Phosphatase 120 U/L 118 U/L Aspartate Amino Transf (AST/SGOT) 59 U/L 53 U/L Alanine Aminotransferase (ALT/SGPT) 74 U/L 68 U/L Total Bilirubin 1.3 MG/DL 1.1 MG/DL Sodium Level 147 MEQ/L 145 MEQ/L Potassium Level 4.1 MEQ/L 4.0 MEQ/L Chloride Level 117 MEQ/L 114 MEQ/L Carbon Dioxide Level 23.1 MEQ/L 24.1 MEQ/L Anion Gap 7 MEQ/L 7 MEQ/L Estimat Glomerular Filtration Rate 170 ML/MIN 245 ML/MIN Triglycerides Level 191 MG/DL White Blood Count 14.7 TH/MM3 18.6 TH/MM3 Red Blood Count 3.05 MIL/MM3 3.25 MIL/MM3 Hemoglobin 9.3 GM/DL 9.9 GM/DL Hematocrit 28.1 % 30.1 % Mean Corpuscular Volume 92.2 FL 92.6 FL Mean Corpuscular Hemoglobin 30.5 PG 30.5 PG Mean Corpuscular Hemoglobin Concent 33.0 % 32.9 % Red Cell Distribution Width 14.7 % 15.4 % Platelet Count 162 TH/MM3 176 TH/MM3 Mean Platelet Volume 11.3 FL 11.9 FL Neutrophils (%) (Auto) 92.1 % 92.3 % Lymphocytes (%) (Auto) 2.4 % 3.7 % Monocytes (%) (Auto) 5.4 % 3.8 % Eosinophils (%) (Auto) 0.0 % 0.1 % Basophils (%) (Auto) 0.1 % 0.1 % Neutrophils # (Auto) 13.6 TH/MM3 17.1 TH/MM3 Lymphocytes # (Auto) 0.4 TH/MM3 0.7 TH/MM3 Monocytes # (Auto) 0.8 TH/MM3 0.7 TH/MM3 Eosinophils # (Auto) 0.0 TH/MM3 0.0 TH/MM3 Basophils # (Auto) 0.0 TH/MM3 0.0 TH/MM3 CBC Comment DIFF FINAL DIFF FINAL Differential Comment Date/Time Source Procedure Growth Status 01/10/17 07:03 Stool Stool Stool Occult Blood (MODESTA) - Final HEMOCCULT POSITIVE Complete Mental Status Examination Appearance: Appropriate Consciousness: Alert Orientation: Person, Place (vague), Situation (vague) Motor Activity: Other (patient bedridden at this time) Speech: Slow, Other (somewhat tangential) Language: Other (fair) Fund of Knowledge: Poor Attention and Concentration: Other (poor) Memory: Impaired Mood: Other (somewhat restricted) Affect: Other (decreased range and intensity) Thought Process & Associations: Loose associations (mild) Thought Content: Appropriate Hallucination Type: None Delusion Type: None Suicidal Ideation: No Suicidal Plan: No Suicidal Intention: No Homicidal Ideation: No Homicidal Plan: No Homicidal Intention: No Insight: Poor (to fair) Judgment: Poor (fair) Assessment & Plan Problem List: (1) Depressive disorder due to separate medical condition ICD Codes: F06.30 - Mood disorder due to known physiological condition, unspecified Assessment & Plan Estimated LOS: days patient showing some mild depressive signs appears to be responding appropriately with the Remeron. Would consider continuing at the same dose. This time patient does not meet criteria for either psychiatric hospitalization or after to the MedPsych unit. Patient consult I'll sign off the present time Discharge Planning Will defer to [facility] treatment team Request HC Surrog/Guard Advoc?: No Barry Gómez MD Jan 12, 2017 17:05
[2017-01-12] MEDS: PANTOPRAZOLE SODIUM 40 MG VIAL IV PUSH SCH (17:15)
[2017-01-12] MEDS: CLINIMIX E 4.25/5 1000 mL- </= 42 mls/hr IV SCH ×3 (22:22)
[2017-01-12] MEDS: FAT EMULSION 20% INJ 250 ML (@10 mls/hr) IV SCH (22:23)
[2017-01-12] MEDS: MIRTAZAPINE 15 MG TAB PO SCH (22:24)
[2017-01-13] VITALS (13 sets, daily range): BP systolic 98–134; BP diastolic 57–81; PULSE 101–126; RESP 18–30; TEMP 97.3–98.7; O2SAT 84–100
[2017-01-13] MEDS: PHENAZOPYRIDINE HCL 100 MG TAB PO PRN (03:00)
[2017-01-13] MEDS: ACETAMINOPHEN/HYDROcodone 325 MG/5 MG TAB PO PRN ×2 (06:23→08:24)
[2017-01-13] MEDS: POTASSIUM PHOSPHATE/SODIUM PHOSPHATE 250 MG TAB PO SCH ×3 (06:23→22:10)
[2017-01-13] MEDS: metroNIDAZOLE 500 MG INJ 100 ML IV SCH ×3 (06:25→22:08)
--- NOTE | 2017-01-13 08:08 | RADRPT ---
EXAM DATE/TIME: 01/13/2017 07:04 [place] COMPARISON: CT ABDOMEN & PELVIS W CONTRAST, January 05, 2017, 13:48. US LEG BILATERAL VENOUS DOPPLER, Andria yost 2016, 15:47. INDICATIONS : Elevated lab vaules. MEDICAL HISTORY : Stroke. Hypercholesterolemia. Neck pain. Glasses. Migraine. Numbness. Urinary tract infection. Jorden turia. Dysuria. Joint pain. SURGICAL HISTORY : Lasik surgery. Rhinoplasty. ENCOUNTER: Initial ACUITY: 1 day PAIN SCORE: 4/10 LOCATION: Abdomen MEASUREMENTS: LIVER: 13.5 cm length COMMON DUCT: 1 mm RIGHT KIDNEY: 11.7 x 4.9 x 4.9 cm LEFT KIDNEY: 12.1 x 5.6 x 6.1 cm SPLEEN: 7.9 cm length AORTA: 2.1cm maximal FINDINGS: LIVER: Normal echotexture without focal lesion or ductal dilatation. COMMON DUCT: No intraluminal mass or stone visualized. GALLBLADDER: Contains no stones, demonstrates no wall thickening or pericholecystic fluid. PANCREAS: The visualized portions are within normal limits. RIGHT KIDNEY: No hydronephrosis, stone or mass. LEFT KIDNEY: No hydronephrosis, stone or mass. SPLEEN: No focal lesion. AORTA: Non aneurysmal. IVC: Within normal limits. CONCLUSION: 1. There is a small left pleural effusion. 2. Exam is otherwise unremarkable. Satnam Degroot MD on January 13, 2017 at 8:02 Board Certified Radiologist. This report was verified electronically.
[2017-01-13] MEDS: INSULIN ASPART SUPPLEMENTAL SCALE SQ SCH ×3 (08:22→16:47)
[2017-01-13] MEDS: MEGESTROL ACETATE SUSP 400 MG/10 ML CUP PO SCH ×2 (08:23→08:41)
[2017-01-13] MEDS: amLODIPine BESYLATE 5 MG TAB PO SCH (08:23)
[2017-01-13] MEDS: ASPIRIN 81 MG CHEW TAB CHEW SCH (08:23)
[2017-01-13] MEDS: DOCUSATE SODIUM 50 MG/SENNA 8.6 MG TAB PO SCH (08:24)
[2017-01-13] MEDS: SODIUM CHLORIDE 0.9% FLUSH 5 ML FLUSH IV FLUSH SCH ×2 (08:24→21:00)
[2017-01-13] MEDS: POTASSIUM CHLORIDE 25 MEQ EFFERVESCENT TAB PO SCH ×2 (08:24→22:09)
[2017-01-13] MEDS: TERIFLUNOMIDE 14 MG PO SCH (08:24)
[2017-01-13] MEDS: INSULIN DETEMIR 100 UNITS/ML VIAL SQ SCH ×2 (08:24→21:00)
[2017-01-13 08:44] LABS: INTERNATIONAL NORMALIZED RATIO 1.2 RATIO; PROTHROMBIN TIME - PATIENT 13.8 SEC (9.8-11.6)
[2017-01-13 09:43] LABS: BLOOD GAS BASE EXCESS -0.5 mmol/L (-2-2); BLOOD GAS HCO3 22 mmol/L (22-26); BLOOD GAS METHEMOGLOBIN 0.8 % (0-2); BLOOD GAS O2 HGB SATURATION 95 % (90-100); BLOOD GAS OXYGEN CONTENT 13.4 Vol % (12.0-20.0); BLOOD GAS PCO2 26 mmHg (38-42); BLOOD GAS PO2 97 mmHg (61-120); BLOOD GAS TOTAL HGB 9.9 G/DL (12.0-16.0); TEMP CORR TO 98.6
[2017-01-13 09:45] LABS: CRITICAL VALUE YES; DRAW SITE LT RADIAL; FIO2 100 %; LITER FLOW 15 L/M; NUMBER OF ARTERIAL PUNCTURES 1; STAT NO; ULNAR PULSE PRESENT
--- NOTE | 2017-01-13 09:52 | HHI.PR ---
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 The patient was evaluated by neurology, Dr. Philip Fountain for acute CVA. MRI was obtained and it showed a 3 cm triangular area of abnormal signal and restricted flow involving the left temporal lobe, sylvian fissure into the basal ganglia consistent with acute infarct of the left MCA distribution. There is also reported one episode of lethargy with repeat CT brain showing evolution of the left MCA territory ischemia/infarction without hemorrhagic conversion. CT was ordered showed a new acute to subacute right posterior parietal/occipital mild convexity infarct. It showed evolving infarct involving the medial left occipital mild complexities, left mid parietal high convexities and mid right parietal high convexities. followed by grounds and nursery specialist, with Diagnosis of Expressive aphasia, Multiple sclerosis Encephalopathy acute, CVA, Acute ischemic left MCA stroke, Recurrent strokes, INR today 2.2 indefinite anticoagulation recommended. military source operations specialist following, with Diagnosis of Aspiration Pneumonia with Hypoxemia, to continue Oxygen at 2 L/min. Bronchodilator, Swallow evaluation, Discontinued Clindamycin. 01/12: Seen in her bedroom in the presence at all times of Nurse Miss Lr, discussed with her present in the room and her Daughter through the Phone, they will decide about the PICC line placement recommended by Vascular team the patient needs to receive TPN and antibiotics and Heparin and there's no enough access at this time, but the family did not decided yet, also her asking for Feeding tube, Calorie count in progress , recommended GI specialist to continue [place] thickened liquids, Ensure enlive BID, ensure Pudding, Calorie count, Megace and Remeron. 01/13: Patient seen in her bedroom after Halicat performed by nurse, due to Respiratory failure, Improved with Non Rebreather mask, patient states she is not feeling well, she has overall poor prognosis, yesterday her Heparin was removed due to therapeutic INR but today her INR is 1.2 to re start Heparin Drip, will notify grounds and nursery specialist and asked for BMP, BNP, CBC, Cardiac Enzymes, Chest X ray, she is Full Code will transfer to Intensive care unit and evaluation by Mine Engineering Manager asked discussed personally with security incident response specialist Doctor Sudheer Ayala appreciated Assistance. Objective Vital Signs Date Time Temp Pulse Resp B/P (MAP) Pulse Ox O2 Delivery O2 Flow Rate FiO2 01/13/17 04:00 98.7 105 18 111/60 (77) 91 01/13/17 00:00 97.3 104 20 98/57 (71) 95 01/12/17 20:00 97.2 108 18 110/59 (76) 90 01/12/17 18:00 87 01/12/17 16:00 98.1 116 16 108/61 (77) 92 01/12/17 12:00 97.2 101 18 135/71 (92) 92 I/O 01/12/17 01/12/17 01/12/17 01/13/17 01/13/17 01/13/17 07:00 15:00 23:00 07:00 15:00 23:00 Intake Total 443 ml 60 ml Output Total 350 ml 1025 ml 300 ml 450 ml Balance 93 ml -965 ml -300 ml -450 ml IV Total 443 ml 60 ml Output Urine Total 350 ml 1025 ml 300 ml 450 ml # Voids 0 # Bowel Movements 1 Result Diagram: 01/12/17 0512 01/12/17 0512 Imaging Last Impressions Chest X-Ray 01/11/17 0600 Signed Impressions: Service Date/Time: Wednesday, January 11, 2017 06:23 - CONCLUSION: Persistent areas of consolidation in the left lung. Barry dEward MD Head CT 01/07/17 0000 Signed Impressions: Service Date/Time: Saturday, January 07, 2017 09:43 - CONCLUSION: 1. Multiple evolving bilateral cerebral infarcts involving both anterior and posterior circulation territories, as above. Differential considerations include embolism or vasculitis. 2. No significant intercurrent hemorrhage, herniation, or hydrocephalus. German Bloom MD Neck CTA 01/06/17 0000 Signed Impressions: Service Date/Time: Friday, January 06, 2017 19:10 - CONCLUSION: Normal CTA carotids. David Jordan MD Brain MRI 01/06/17 0000 Signed Impressions: Service Date/Time: Friday, January 06, 2017 18:49 - CONCLUSION: 1. Acute nonhemorrhagic infarction in the right MCA ALGORITHM DESIGN ENGINEER watershed zone. 2. Subacute infarctions with possible subacute blood products in the left occipital and left suprasylvian parietal region. 3. Subacute infarction in the right posterior insula without evidence of blood products. David Jordan MD Procedures None Other Results Laboratory Tests Test 01/06/17 21:12 01/07/17 23:42 01/08/17 08:14 01/10/17 08:26 Erythrocyte Sedimentation Rate 5 mm/hr C-Reactive Protein LESS THAN 0.29 MG/DL Anti-Nuclear Antibody Screen NEG Anti-Proteinase 3 (c-ANCA) LESS THAN 1.0 AI Anti-Myeloperoxidase Ab (p-ANCA) LESS THAN 1.0 AI Hemoglobin A1c 5.4 % Cholesterol Level 233 MG/DL LDL Cholesterol 134 MG/DL HDL Cholesterol 59.5 MG/DL Cholesterol/HDL Ratio 3.91 RATIO Iron Level 219 MCG/DL Total Iron Binding Capacity 225 MCG/DL Percent Iron Saturation 97.2 % Ferritin 930 NG/ML Vitamin B12 Level 594 PG/ML Red Blood Cell Folate 528 Test 01/11/17 19:50 01/12/17 05:12 01/13/17 07:12 01/13/17 09:31 Triglycerides Level 191 MG/DL White Blood Count 18.6 TH/MM3 Red Blood Count 3.25 MIL/MM3 Hemoglobin 9.9 GM/DL Hematocrit 30.1 % Mean Corpuscular Volume 92.6 FL Mean Corpuscular Hemoglobin 30.5 PG Mean Corpuscular Hemoglobin Concent 32.9 % Red Cell Distribution Width 15.4 % Platelet Count 176 TH/MM3 Mean Platelet Volume 11.9 FL Neutrophils (%) (Auto) 92.3 % Lymphocytes (%) (Auto) 3.7 % Monocytes (%) (Auto) 3.8 % Eosinophils (%) (Auto) 0.1 % Basophils (%) (Auto) 0.1 % Neutrophils # (Auto) 17.1 TH/MM3 Lymphocytes # (Auto) 0.7 TH/MM3 Monocytes # (Auto) 0.7 TH/MM3 Eosinophils # (Auto) 0.0 TH/MM3 Basophils # (Auto) 0.0 TH/MM3 CBC Comment DIFF FINAL Differential Comment Blood Urea Nitrogen 24 MG/DL Creatinine 0.27 MG/DL Random Glucose 129 MG/DL Total Protein 4.7 GM/DL Albumin 2.7 GM/DL Calcium Level 8.3 MG/DL Phosphorus Level 2.4 MG/DL Magnesium Level 2.0 MG/DL Alkaline Phosphatase 118 U/L Aspartate Amino Transf (AST/SGOT) 53 U/L Alanine Aminotransferase (ALT/SGPT) 68 U/L Total Bilirubin 1.1 MG/DL Sodium Level 145 MEQ/L Potassium Level 4.0 MEQ/L Chloride Level 114 MEQ/L Carbon Dioxide Level 24.1 MEQ/L Anion Gap 7 MEQ/L Estimat Glomerular Filtration Rate 245 ML/MIN Prothrombin Time 13.8 SEC Prothromb Time International Ratio 1.2 RATIO Activated Partial Thromboplast Time 25.0 SEC Blood Gas Puncture Site LT RADIAL Blood Gas Patient Temperature 98.6 Blood Gas HCO3 22 mmol/L Blood Gas Base Excess -0.5 mmol/L Blood Gas Oxygen Saturation 95 % Arterial Blood pH 7.53 Arterial Blood Partial Pressure CO2 26 mmHg Arterial Blood Partial Pressure O2 97 mmHg Arterial Blood Oxygen Content 13.4 Vol % Arterial Blood Carboxyhemoglobin 0.0 % Arterial Blood Methemoglobin 0.8 % Blood Gas Hemoglobin 9.9 G/DL Oxygen Delivery Device Non-Rebreathing Mask Blood Gas Liter Flow 15 L/M Blood Gas Inspired Oxygen 100 % Objective Remarks GENERAL: Awake and alert, acute respiratory distress. Confused. SKIN: Warm and dry. HEAD: Atraumatic. Normocephalic. EYES: Pupils equal and round. No scleral icterus. No injection or drainage. ENT: No nasal bleeding or discharge. wearing Non Rebreather mask. NECK: Trachea midline. No JVD. CARDIOVASCULAR: Regular rate and rhythm. RESPIRATORY: No accessory muscle use. Clear to auscultation. Breath sounds equal bilaterally. GASTROINTESTINAL: Abdomen soft, non-tender, nondistended. Beckman Cath in place. MUSCULOSKELETAL: Extremities without clubbing, cyanosis, or edema. No obvious deformities. NEUROLOGICAL: Awake and alert. Right Hemiparesis. confused. PSYCHIATRIC: Appropriate mood Medications and IVs Current Medications Medications (Trade) Dose Ordered Sig/Marilin Route Start Time Stop Time Status Last Admin (Narcan Inj) 0.4 mg UNSCH PRN IV PUSH 01/05/17 21:00 Metronidazole 100 ml @ 100 mls/hr Q8H IV 01/05/17 22:00 01/13/17 06:25 (Fioricet 325-50-40) 1 tab Q8H PRN PO 01/05/17 21:00 (Blistex Lip [place]) 1 applic UNSCH PRN TOPICAL 01/05/17 21:00 01/10/17 17:57 (Aspirin Chew) 81 mg DAILY CHEW 01/06/17 09:00 01/13/17 08:23 (Zofran Inj) 4 mg Q6HR PRN IV PUSH 01/05/17 21:00 (Pill Splitter) 1 ea UNSCH PRN OTHER 01/05/17 21:45 (NS Flush) 2 ml BID IV FLUSH 01/06/17 21:00 01/13/17 08:24 (NS Flush) 2 ml UNSCH PRN IV FLUSH 01/06/17 10:15 (Bryan 5-325 Mg) 1 tab Q4H PRN PO 01/06/17 17:30 01/13/17 08:24 (K-Lyte Cl Eff) 25 meq Q12HR PO 01/07/17 12:45 01/12/17 22:23 (K-Phos Neutral) 250 mg Q8HR PO 01/07/17 14:00 01/13/17 06:23 Levofloxacin/ Dextrose 100 ml @ 100 mls/hr Q24H IV 01/08/17 15:00 01/12/17 13:52 (NovoLOG SUPPLEMENTAL SCALE) 1 ACHS SQ 01/07/17 21:00 01/10/17 21:00 (D50w (Vial) Inj) 50 ml UNSCH PRN IV PUSH 01/07/17 19:45 (Glucagon Inj) 1 mg UNSCH PRN OTHER 01/07/17 19:45 Patient Own Medication PT OWN MED: (Teriflunomide ([place]ub[place]io)... DAILY PO 01/08/17 13:00 01/13/17 08:24 (Pyridium) 100 mg Q8H PRN PO 01/08/17 13:00 01/13/17 03:00 (B & O Supp) 60 mg Q6HR PRN RECTAL 01/08/17 13:00 (Jessi-Colace) 2 tab DAILY PO 01/08/17 13:15 01/12/17 10:25 Potassium Chloride 40 meq/ Sodium Chloride 38.5 meq/Sterile Water 1,029.625 ml @ 100 mls/hr [id number] IV 01/09/17 15:00 Future Hold 01/11/17 14:05 (Levemir Inj) 5 units Q12HR SQ 01/09/17 21:00 01/13/17 08:24 Pharmacy Profile Note 0 ml @ 0 mls/hr UNSCH OTHER 01/10/17 00:00 (Norvasc) 5 mg DAILY PO 01/10/17 12:30 01/13/17 08:23 (Xanax) 0.25 mg Q6H PRN PO 01/10/17 14:00 (Remeron) 15 mg HS PO 01/10/17 21:00 01/12/17 22:24 (Protonix Inj) 40 mg Q24H IV PUSH 01/10/17 17:00 01/12/17 17:15 (Megace Liq) 400 mg DAILY PO 01/11/17 14:00 01/12/17 10:25 Multivitamins 10 ml/Folic Acid 1 mg/Amino Acids/ Electrolytes/ Dextrose 1,010.2 ml @ 42 mls/hr Q24H IV 01/12/17 20:00 01/12/17 22:22 Fat Emulsion Intravenous 250 ml @ 10 mls/hr Q24H IV 01/12/17 20:00 01/12/17 22:23 (Coumadin) 3 mg DAILY@1600 PO 01/13/17 16:00 A/P Assessment and Plan 1. Encephalopathy acute Resolved. at this time with some confusion. Multifactorial secondary to CVA, UTI and aspiration pneumonia. A CT scan of the head showed a new left posterior CVA. Neurology was consulted and is following the patient. Initially the patient was on aspirin on Xarelto. Xarelto was discontinued and the patient was placed on IV heparin drip given that the patient had hematuria which eventually resolved. Hematology was consulted due to the patient having had a stroke while on Xarelto. Hematology recommended bridging with heparin/Lovenox subcutaneously 72 hours to Coumadin with an INR goal of 2- 3. Her Heparin was removed yesterday as per grounds and nursery specialist recommendations today her INR is 1.2 re started her Heparin. 2. Respiratory Insufficiency status post Oxygen desaturation, started on Non Rebreather mask and improving, awaiting for ABGs, BMP BNP, CBC, Cardiac Enzymes, transfer to Intensive Care Unit and asked for Mine Engineering Manager Consult. discussed with Doctor Sudheer Ayala 3. Urinary Retention, has Beckman Cath. on Flomax, Urology recommended to continue [place] cath. 4. Recurrent CVA, Likely thromboembolic, MRI of the brain was done and described as above showed a nonacute hemorrhagic infarction in the right MCA ALGORITHM DESIGN ENGINEER watershed zone. It also showed possibility of subacute blood products in the left occipital and left suprasylvian parietal region. CT of the head was ordered and did not show any major bleeding. Therefore neurology decided to continue anticoagulation. 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 2D Echocardiogram showed a normal left ventricular size with a grade 1 diastolic dysfunction. However no thrombus was observed. There is moderate to severe tricuspid regurgitation and pulmonary hypertension with a pressure of [address] chest as mentioned above shows a right upper lobe infiltrate and superior segment of the left lower lobe with nearly masslike focal airspace consolidation in the left lower lobe containing air bronchograms measuring 2.42.1 cm. Suspect aspiration pneumonia. military source operations specialist following, NEW CXR shows an improving left lower lobe consolidation. Discontinue clindamycin. Continue IV Levaquin and IV Flagyl. 6. History of Pulmonary Embolism initially on Xarelto, 7. UTI treated with Levaquin. The patient developed hematuria. Urology consulted. Urine cultures grew Escherichia coli which was sensitive to quinolones.Urology recommended keeping the Beckman to drainage initially and to the hematuria resolved. Beckman catheter was discontinued on 01/10 with the patient having some urinary retention. 7. Expressive Aphasia Speech therapy following. 8. Dysphagia Speech therapy following. the family asked for PEG tube placement and was recommended to be performed today the patient is unstable transferred to ICU, Poor short term prognosis. 9. Multiple sclerosis continue Solu-Medrol 250 mg IV every six hours. 10. Hypertension better control 11. Elevated Troponin Echo shows normal systolic function, grade 1 diastolic function but no intracardiac thrombus reported. photographic specialist following. 12. Anemia Hemoccult positive 2. Hemoglobin monitor and trended and slowly trending down, 10.4 today. GI consulted. As per GI report it was decided to not do endoscopy or colonoscopy in the patient and to monitor the hemoglobin. Continue PPI and continue to follow-up GI recommendations. Acute to monitor CBC 13. Depression on Remeron 15 mg at bedtime, consulted Psychiatry specialist for recommendations. 14. Anxiety disorder Xanax as needed. Discussed with patient, her Mr. Abhinav Curiel and nurse Miss Lr, also charge nurse and Halicat team in the room the patient is unstable, transferred to the room has overall Poor Prognosis , Transferred to Intensive Care Unit and all questions answered to the best of my abilities. Discussed with Medical Tech Doctor Sudheer Ayala appreciated assistance. Discharge Planning Not yet cleared for discharge. Anthony Gamez MD Jan 13, 2017 09:52
[2017-01-13] MEDS ORDERED: HEPARIN-D5W 25,000 U/250 ML 250 ML IV SCH (10:00)
[2017-01-13] MEDS ORDERED: ROCURONIUM INJ 100 MG/10 ML VIAL IV ONE (10:30)
[2017-01-13] MEDS ORDERED: ETOMIDATE 40 MG/20 ML VIAL IV PUSH ONE (10:30)
[2017-01-13] MEDS ORDERED: fentaNYL DRIP 250 ML IV PRN (10:30)
[2017-01-13] MEDS ORDERED: PROPOFOL 1000 MG/100 ML INJ 100 ML IV PRN (10:30)
[2017-01-13] MEDS ORDERED: ROCURONIUM INJ 50 MG/5 ML VIAL ONE (10:31)
--- NOTE | 2017-01-13 10:50 | RADRPT ---
EXAM DATE/TIME: 01/13/2017 10:18 [facility] COMPARISON: CHEST SINGLE AP, January 11, 2017, 6:23. INDICATIONS : Respiratory failure MEDICAL HISTORY : Stroke. pulmonary embolism SURGICAL HISTORY : None. ENCOUNTER: Subsequent ACUITY: 1 week PAIN SCORE: 0/10 LOCATION: chest FINDINGS: There is a moderate-sized left pleural effusion and consolidative changes in the left lower lobe. The se changes appear similar to prior exam. The right lung demonstrates chronic interstitial change but is otherwise clear. The heart is enlarged. The bony structures are intact. CONCLUSION: Left basilar effusion and consolidation stable compared to prior exam. Satnam Degroot MD on January 13, 2017 at 10:48 Board Certified Radiologist. This report was verified electronically.
--- NOTE | 2017-01-13 11:36 | PD.CONS ---
[facility] Service Critical Care Medicine Consult Requested By Dr. Medina Reason for Consult Respiratory failure Primary Care Physician Unknown History of Present Illness This is a 76-year-old female. Date of admission 01/05/2017. Past medical history includes history of prior CVA with expressive aphasia, MS diagnosed 2013 on teriflunomide and followed by Dr. 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 Originally, this patient was admitted to [facility] on 12/21/16 with sudden onset of slurred speech and right-sided facial droop. CT brain was unremarkable, the patient was not given TPA because she was outside of the window. The patient was evaluated by neurology, Dr. Philip Fountain. MRI brain revealed a 3 cm triangular area of abnormal signal and restricted flow involving the left temporal lobe, sylvian fissure into the basal ganglia consistent with acute infarct of the left MCA distribution. She was also noted were multiple punctate foci of restricted flow within the left parietal, left occipital cortex and left frontal lobe suggesting a small acute infarcts. Additional studies at the time included a CT of the head and neck and TTE which were negative for embolic source. There is also reported one episode of lethargy with repeat CT brain showing evolution of the left MCA territory ischemia/infarction without hemorrhagic conversion. Per prior records , patient has noted right hemiparesis, expressive aphasia , dysarthria and dysphagia. On 01/04, a stroke alert was called due to altered mental status. MRI brain was obtained which showed bilateral acute to subacute infarcts with the largest being in the left posterior parietal/occipital region. No evidence of hemorrhage. On 01/05 CT brain revealed a new acute to subacute right posterior parietal/occipital mild convexity infarct, reported new since 01/03/17. It showed evolving infarct involving the medial left occipital mild complexities, left mid parietal high convexities and mid right parietal high convexities. No hemorrhage, hydrocephalus or herniation were observed. Her symptoms also involve cortical blindness verified by Dr. De Anda/ophthalmology Patient is been seen by multiple consults: Neurology. MRI brain revealed acute right MCA/CONFERENCE PLANNER distribution CVA along with Subacute strokes involving left occipital left frontal region with possible hemorrhagic conversion along with subacute left posterior sylvian CVA. Patient is currently on aspirin 81 mg daily and resume home medication of Terflunomide 40 mg daily for underlying MS. CTA neck revealed no carotid stenosis. 2-D echocardiogram revealed no embolic source. Patient was evaluated by Dr. Ford from cardiology standpoint. Echocardiogram revealed severe TR/moderate MR. Dilated right atrium. Severe pulmonary hypertension PAP 70 mmHg. Grade 1 diastolic dysfunction. Recommended medical management including aspirin, beta radha, TG inhibitor and statin Evaluated by Dr. Leal for retaining urine. Recommended maintain Beckman. Follow-up outpatient 30 days after discharge. Today, patient presented to the [facility] ICU secondary to acute onset of hypoxia. Patient currently on a nonrebreather saturations 95-96%. Discussion with and son Abimael. Chest x-ray showed stable left lower lobe infiltrate and possible small left pleural effusion. Likely not drinking underlying hypoxia. ABG reveals respiratory alkalosis. Discussion with regarding intubation. There was involved including daughter and son Abimael at bedside. Plan currently is for DNR status. Transition to hospice care if patient continues.. Patient is aware he can change his mind at any point. did nob head affirmatively that she did not want to be intubated and she wanted to be kept comfortable at this time and she was "ready to go". Review of Systems ROS Limitations: Altered Mental Status Past Family Social History Allergies: Coded Allergies: Sulfa (Sulfonamide Antibiotics) (Verified Allergy, Intermediate, 12/28/16) hives Penicillins (Verified Allergy, Unknown, 12/28/16) childhood reaction unknown Past Medical History - 2013 - Dr. Fountain Past Surgical History [facility] Plastic surgery nasal laceration Reported Medications Teriflunomide 14 mg daily Rivaroxaban 15 mg daily Active Ordered Medications Reviewed in EMR Family History Mother at 45 colon cancer. Father 97 old age Social History Quit tobacco in 1971. Occasional alcohol use. No IV drug use Physical Exam Vital Signs Vital Signs Date Time Temp Pulse Resp B/P (MAP) Pulse Ox O2 Delivery O2 Flow Rate FiO2 01/13/17 09:53 95 Non-Rebreather 15.00 01/13/17 09:37 107 30 127/79 (95) 98 01/13/17 09:34 126 30 100 01/13/17 09:30 111 24 134/81 (98) 96 01/13/17 09:20 107 24 84 01/13/17 04:00 98.7 105 18 111/60 (77) 91 01/13/17 00:00 97.3 104 20 98/57 (71) 95 01/12/17 20:00 97.2 108 18 110/59 (76) 90 01/12/17 18:00 87 01/12/17 16:00 98.1 116 16 108/61 (77) 92 01/12/17 12:00 97.2 101 18 135/71 (92) 92 Physical Exam GENERAL: 73 yo female, critically ill currently resting in bed in mild respiratory distress SKIN: Warm and dry. Significant ecchymosis bilateral upper extremities HEAD: Atraumatic. Normocephalic. EYES: Pupils equal and round about 2 mm bilaterally reactive to one millimeter. No scleral icterus. No injection or drainage. ENT: No nasal bleeding or discharge. Mucous membranes pink and moist. NECK: Trachea midline. No JVD. CARDIOVASCULAR: Tachycardic, RR. S1, S2. No S4. With 2/6 murmur left lower sternal border. RESPIRATORY: Coarse crackles appreciated throughout the left anterior and posterior lung doherty. No wheezing GASTROINTESTINAL: Abdomen soft, non-tender, nondistended. Hypoactive bowel sounds are appreciated MUSCULOSKELETAL: Extremities without peripheral edema. No obvious deformities. NEUROLOGICAL: Arousable but falls asleep easily. Cortical blindness. Strength 3 out of 5 right and lower extremity. Strength 3-5 left upper and lower extremity Laboratory Laboratory Tests Test 01/13/17 07:12 01/13/17 09:31 Prothrombin Time 13.8 Prothromb Time International Ratio 1.2 Activated Partial Thromboplast Time 25.0 Blood Gas Puncture Site LT RADIAL Blood Gas Patient Temperature 98.6 Blood Gas HCO3 22 Blood Gas Base Excess -0.5 Blood Gas Oxygen Saturation 95 Arterial Blood pH 7.53 Arterial Blood Partial Pressure CO2 26 Arterial Blood Partial Pressure O2 97 Arterial Blood Oxygen Content 13.4 Arterial Blood Carboxyhemoglobin 0.0 Arterial Blood Methemoglobin 0.8 Blood Gas Hemoglobin 9.9 Oxygen Delivery Device Non-Rebreathing Mask Blood Gas Liter Flow 15 Blood Gas Inspired Oxygen 100 Date/Time Source Procedure Growth Status 01/10/17 07:03 Stool Stool Stool Occult Blood (MODESTA) - Final HEMOCCULT POSITIVE Complete Result Diagram: 01/12/17 0512 01/12/17 0512 Imaging Last Impressions Chest X-Ray 01/11/17 0600 Signed Impressions: Service Date/Time: Wednesday, January 11, 2017 06:23 - CONCLUSION: Persistent areas of consolidation in the left lung. Barry Edward MD Head CT 01/07/17 Signed Impressions: Service Date/Time: Saturday, January 07, 2017 09:43 - CONCLUSION: 1. Multiple evolving bilateral cerebral infarcts involving both anterior and posterior circulation territories, as above. Differential considerations include embolism or vasculitis. 2. No significant intercurrent hemorrhage, herniation, or hydrocephalus. German Bloom MD Neck CTA 01/06/17 Signed Impressions: Service Date/Time: Friday, January 06, 2017 19:10 - CONCLUSION: Normal CTA carotids. David Jordan MD Brain MRI 01/06/17 Signed Impressions: Service Date/Time: Friday, January 06, 2017 18:49 - CONCLUSION: 1. Acute nonhemorrhagic infarction in the right MCA CONFERENCE PLANNER watershed zone. 2. Subacute infarctions with possible subacute blood products in the left occipital and left suprasylvian parietal region. 3. Subacute infarction in the right posterior insula without evidence of blood products. David Jordan MD Assessment and Plan Assessment and Plan Neuro/Psych: Acute right MCA/CONFERENCE PLANNER CVA Subacute left occipital/parietal and posterior sylvian fissure CVA MS - 2014 Expressive aphasia Dysarthria MRI brain revealed acute right MCA/CONFERENCE PLANNER CVA. Subacute left occipital/parietal CVA with possible hemorrhagic conversion with left posterior sylvian fissure CVA CTA neck revealed no signs of carotid stenosis 2-D echocardiogram revealed no embolic source Followed by Dr. Fountain/neurology. Recommended baby aspirin anticoagulation. Warfarin instead of rivaroxaban Written for mirtazapine 15 mg daily depression Teriflunomide 14 mg daily for MS Written for alprazolam 0.25 mg every 6 hours as needed anxiety. Currently respiratory wyatt too unstable CT brain at the present time CV: Hypertension Severe TR/moderate MR Grade 1 diastolic dysfunction Severe pulmonary hypertension Dyslipidemia 2-D echocardiogram revealed grade 1 diastolic dysfunction. Severe TR. Moderate MR. Right atrial dilatation. Evaluation Dr. Ford/cardiology. Recommend aspirins/beta radha/TG inhibitor and statin Currently on amlodipine 5 mill grams daily. We'll place on low-dose IV beta radha nothing by mouth\\ Resp: Acute respiratory failure Small left pleural effusion Carlyn tobaccoism Patient currently on nonrebreather mask saturations between currently 95-98% Left pleural effusions small by ultrasound. Too small for safeespecially while on heparin drip currently. Likely not source of acute hypoxia PA very unlikely. Hemodynamically stable. Negative DVT on bilateral lower extremity ultrasound 12/29/16 Titrate oxygen maintain saturations greater than equal to 92% Incentive spirometry while awake Bronchodilator therapy with albuterol scheduled every 6 hours Strict aspiration precautions Mentation/aspiration likely barrier to recovery. /son and daughter saw states she did not want to be intubated. We' ll abide/respect her wishes at the present time Dr. Murcia pulmonology following GI: Dysphagia Elevated transaminases Evaluated by GI. Will need PEG tube if aggressive cares Pantoprazole for GI prophylaxis Jessi-Colace ordered for bowel regimen. Unable to take currently Currently on PPN at 42 cc hourly with lipids daily Liver ultrasound revealed no acute findings LFT/ammonia level pending currently along with coags : Urinary incontinence Evaluate Dr. Leal Maintain Beckman for his recommendations On B and O suppository as needed Endo: Hyperglycemia Sliding-scale insulin with Accu-Cheks to maintain euglycemia before meals/at bedtime Insulin detemir 5 units twice a day Renal: Monitor urine output Accurate I's and O's A.m. creatinine pending Heme: History of bilateral DVT/PE Followed by Dr. Yarbrough/hematology Currently on heparin drip on warfarin 3 mg daily. Currently 1.2. Maintain heparin drip 72 hours until INR greater than equal to 2.7 Previously on rivaroxaban 15 mill grams daily Follow CBC/inr daily ID: Currently on levofloxacin/Flagyl for possible aspiration pneumonia Pancultured including blood sputum and urine FEN: Replace electrolytes as clinically indicated MSK: PT/OT evaluate and treat Access - Utilize peripheral IV. Central line if indicated Prophylaxis - GI - pantoprazole - DVT - SCD/heparin drip Critical care time 60 minutes Code Status DNR Discussed Condition With Abhinav. Son Abimael. Daughter by telephone. Care plan discussed answered. Patient DNR status. If continues to clinically deteriorate will transition to comfort care only. Patient not to have that she did not want to be intubated even if this meant prolonging her life.. Patient had been adamant in the past that she did not want be placed on "life support :" according to and son and daughter. Options including short-term intubation for resolution of symptoms given the family. Requesting full care @ the present time with no further escalation and will transition to hospice/comfort cares at oxygenation requirements deteriorate. Sudheer Ayala MD Jan 13, 2017 11:36
[2017-01-13 13:20] LABS: AUTOMATED NEUTROPHIL # 16.7 TH/MM3 (1.8-7.7); BASOPHIL % 0.2 % (0.0-2.0); EOSINOPHIL # 0.2 TH/MM3 (0-0.4); EOSINOPHIL % 0.9 % (0.0-4.0); HEMATOCRIT 29.4 % (35.0-46.0); HEMO FLAGS DIFF FINAL; LYMPH % 4.5 % (9.0-44.0); LYMPHOCYTE # 0.8 TH/MM3 (1.0-4.8); MEAN CELL VOLUME 91.1 FL (80.0-100.0); MEAN CORPUSCULAR HEMOGLOBIN 30.2 PG (27.0-34.0); MEAN CORPUSCULAR HGB CONC 33.1 % (32.0-36.0); NEUT % 90.4 % (16.0-70.0); PLATELET COUNT 107 TH/MM3 (150-450); RED BLOOD COUNT 3.23 MIL/MM3 (4.00-5.30); RED CELL DISTRIBUTION WIDTH 14.9 % (11.6-17.2); WHITE BLOOD COUNT 18.5 TH/MM3 (4.0-11.0)
[2017-01-13 13:26] LABS: APTT (PATIENT) 24.7 SEC (24.3-30.1)
[2017-01-13 13:35] LABS: BICARBONATE 22.5 MEQ/L (21.0-32.0); POTASSIUM 3.7 MEQ/L (3.5-5.1)
[2017-01-13] MEDS: LEVOFLOXACIN 500 MG PREMIX INJ 100 ML IV SCH (15:20)
[2017-01-13] MEDS: ARTIFICIAL TEARS OPTH SOLN 15 ML BTL EACH EYE SCH ×2 (15:20→22:10)
[2017-01-13] MEDS ORDERED: WARFARIN SOD 3 MG TAB PO SCH (16:00)
[2017-01-13] MEDS: PANTOPRAZOLE SODIUM 40 MG VIAL IV PUSH SCH (17:30)
[2017-01-13] MEDS: CHLORHEXIDINE 0.12% (ORAL KIT) 15 ML CUP MT SCH (20:00)
[2017-01-13] MEDS: CLINIMIX E 4.25/5 1000 mL- </= 42 mls/hr IV SCH ×3 (22:09)
[2017-01-13] MEDS: FAT EMULSION 20% INJ 250 ML (@10 mls/hr) IV SCH (22:09)
[2017-01-13] MEDS: MIRTAZAPINE 15 MG TAB PO SCH (22:10)
[2017-01-14] VITALS: BP 108/57; PULSE 114; RESP 28; TEMP 98.3; O2SAT 93
[2017-01-14] MEDS ORDERED: CHLORHEXIDINE GLUCONATE 2 % 1 PACK (2 CLOTHS)(extra cloths) TOPICAL PRN (01:30)
[2017-01-14 02:00] VITALS: PULSE 119
[2017-01-14 04:00] VITALS: BP 109/70; PULSE 118; RESP 20; TEMP 97.4; O2SAT 92
[2017-01-14] MEDS ORDERED: CHLORHEXIDINE GLUCONATE 2 % 1 PACK (2 CLOTHS)(taper/protocol) TOPICAL SCH (04:00)
[2017-01-14] MEDS ORDERED: MORPHINE SULFATE 2 MG/ML INJ IV PUSH ONE (05:00)
[2017-01-14] MEDS: metroNIDAZOLE 500 MG INJ 100 ML IV SCH (05:14)
[2017-01-14] MEDS: ARTIFICIAL TEARS OPTH SOLN 15 ML BTL EACH EYE SCH (05:15)
[2017-01-14] MEDS: POTASSIUM PHOSPHATE/SODIUM PHOSPHATE 250 MG TAB PO SCH (05:15)
[2017-01-14 06:00] VITALS: PULSE 119
[2017-01-14 06:59] LABS: APTT (PATIENT) 26.1 SEC (24.3-30.1); INTERNATIONAL NORMALIZED RATIO 1.2 RATIO; PROTHROMBIN TIME - PATIENT 13.9 SEC (9.8-11.6)
[2017-01-14 07:04] LABS: AUTOMATED NEUTROPHIL # 20.1 TH/MM3 (1.8-7.7); BASOPHIL % 0.1 % (0.0-2.0); EOSINOPHIL # 0.1 TH/MM3 (0-0.4); EOSINOPHIL % 0.6 % (0.0-4.0); HEMATOCRIT 26.5 % (35.0-46.0); LYMPH % 3.6 % (9.0-44.0); LYMPHOCYTE # 0.8 TH/MM3 (1.0-4.8); MEAN CELL VOLUME 90.4 FL (80.0-100.0); MEAN CORPUSCULAR HEMOGLOBIN 30.9 PG (27.0-34.0); MEAN CORPUSCULAR HGB CONC 34.2 % (32.0-36.0); MONO % 4.4 % (0.0-8.0); NEUT % 91.3 % (16.0-70.0); PLATELET COUNT 63 TH/MM3 (150-450); RED BLOOD COUNT 2.93 MIL/MM3 (4.00-5.30); RED CELL DISTRIBUTION WIDTH 14.8 % (11.6-17.2)
[2017-01-14 07:24] LABS: ANION GAP 9 MEQ/L (5-15); AST (GOT) 38 U/L (15-37); BLOOD UREA NITROGEN 26 MG/DL (7-18); CHLORIDE 112 MEQ/L (98-107); GLOMERULAR FILTRATION RATE 143 ML/MIN (>89); POTASSIUM 3.8 MEQ/L (3.5-5.1); SODIUM (NA) 140 MEQ/L (136-145)
[2017-01-14 07:25] LABS: ALT (GPT) 40 U/L (10-53)
[2017-01-14 07:27] LABS: ALKALINE PHOSPHATASE 102 U/L (45-117); MAGNESIUM 1.8 MG/DL (1.5-2.5); TOTAL BILIRUBIN ADULT 2.3 MG/DL (0.2-1.0)
[2017-01-14 07:44] LABS: HEMO FLAGS AUTO DIFF
[2017-01-14 08:00] VITALS: BP 108/58; PULSE 135; RESP 34; TEMP 97.1; O2SAT 89
[2017-01-14] MEDS: CHLORHEXIDINE 0.12% (ORAL KIT) 15 ML CUP MT SCH (08:00)
[2017-01-14 08:14] LABS: BANDS 8 % (0-6); EOSINOPHILS 1 % (0-4); MYELOCYTES 2 % (0-0); NEUTROPHIL # MANUAL DIFF 18.9 TH/MM3 (1.8-7.7); POLYS (SEG NEUTROPHILS) 76 % (16-70); WBC DIFF SAMPLE 100
[2017-01-14 08:15] LABS: OVALOCYTES 1+ (NORMAL); PLATELET ESTIMATE SMEAR LOW (NORMAL); PLATELET MORPHOLOGY ENLARGED (NORMAL); SCAN/DIFF FINAL DIFF MANUAL; TOXIC GRANULATION 1+ (NORMAL)
[2017-01-14 08:16] LABS: KERATOCYTES OCC (NORMAL)
[2017-01-14] MEDS ORDERED: MORPHINE SULFATE 4 MG/ML INJ IV PUSH PRN (08:45)
[2017-01-14] MEDS ORDERED: LORazepam 2 MG/ML VIAL IV PUSH PRN (08:45)
--- NOTE | 2017-01-14 08:56 | HHI.CCPN ---
Subjective Remarks/Hospital Course This is a 76-year-old female. Date of admission 01/05/2017. Past medical history includes history of prior CVA with expressive aphasia, MS diagnosed 2013 on teriflunomide and followed by Dr. 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 Originally, this patient was admitted to [facility] on 12/21/16 with sudden onset of slurred speech and right-sided facial droop. CT brain was unremarkable, the patient was not given TPA because she was outside of the window. The patient was evaluated by neurology, Dr. Philip Fountain. MRI brain revealed a 3 cm triangular area of abnormal signal and restricted flow involving the left temporal lobe, sylvian fissure into the basal ganglia consistent with acute infarct of the left MCA distribution. She was also noted were multiple punctate foci of restricted flow within the left parietal, left occipital cortex and left frontal lobe suggesting a small acute infarcts. Additional studies at the time included a CT of the head and neck and TTE which were negative for embolic source. There is also reported one episode of lethargy with repeat CT brain showing evolution of the left MCA territory ischemia/infarction without hemorrhagic conversion. Per prior records , patient has noted right hemiparesis, expressive aphasia , dysarthria and dysphagia. On 01/04, a stroke alert was called due to altered mental status. MRI brain was obtained which showed bilateral acute to subacute infarcts with the largest being in the left posterior parietal/occipital region. No evidence of hemorrhage. On 01/05 CT brain revealed a new acute to subacute right posterior parietal/occipital mild convexity infarct, reported new since 01/03/17. It showed evolving infarct involving the medial left occipital mild complexities, left mid parietal high convexities and mid right parietal high convexities. No hemorrhage, hydrocephalus or herniation were observed. Her symptoms also involve cortical blindness verified by Dr. De Anda/ophthalmology Patient is been seen by multiple consults: Neurology. MRI brain revealed acute right MCA/[employer]OR OF MEDICAL EDUCATION distribution CVA along with Subacute strokes involving left occipital left frontal region with possible hemorrhagic conversion along with subacute left posterior sylvian CVA. Patient is currently on aspirin 81 mg daily and resume home medication of Terflunomide 40 mg daily for underlying MS. CTA neck revealed no carotid stenosis. 2-D echocardiogram revealed no embolic source. Patient was evaluated by Dr. Ford from cardiology standpoint. Echocardiogram revealed severe TR/moderate MR. Dilated right atrium. Severe pulmonary hypertension PAP 70 mmHg. Grade 1 diastolic dysfunction. Recommended medical management including aspirin, beta radha, TG inhibitor and statin Evaluated by Dr. Leal for retaining urine. Recommended maintain Beckman. Follow-up outpatient 30 days after discharge. Today, [facility] to acute onset of hypoxia. Patient currently on a nonrebreather saturations 95-96%. Discussion with and son Abimael. Chest x-ray showed stable left lower lobe infiltrate and possible small left pleural effusion. Likely not drinking underlying hypoxia. ABG reveals respiratory alkalosis. Discussion with regarding intubation. There was involved including daughter and son Abimael at bedside. Plan currently is for DNR status. Transition to hospice care if patient continues.. Patient is aware he can change his mind at any point. did nod head affirmatively that she did not want to be intubated and she wanted to be kept comfortable at this time and she was "ready to go". SUBJ 01/14: Patient is in acute distress, hypoxic on NRB, moaning. Daughter is at bedside and requests comfort measures only. I confirmed this over the phone with patient's Mr. Curiel. Comfort medications ordered Objective Vital Signs Date Time Temp Pulse Resp B/P (MAP) Pulse Ox O2 Delivery O2 Flow Rate FiO2 01/14/17 06:00 119 01/14/17 04:00 97.4 20 109/70 (83) 92 01/13/17 20:00 Partial Non-Rebreather 15.00 Intake and Output 01/14/17 01/14/17 01/15/17 08:00 16:00 00:00 Intake Total 2429 ml Output Total 300 ml Balance 2129 ml Result Diagram: 01/14/17 0600 01/14/17 0600 Other Results Laboratory Tests Test 01/13/17 09:31 Blood Gas Puncture Site LT RADIAL Blood Gas Patient Temperature 98.6 Blood Gas HCO3 22 mmol/L (22-26) Blood Gas Base Excess -0.5 mmol/L (-2-2) Blood Gas Oxygen Saturation 95 % (90-100) Arterial Blood pH 7.53 (7.380-7.420) Arterial Blood Partial Pressure CO2 26 mmHg (38-42) Arterial Blood Partial Pressure O2 97 mmHg (61-120) Arterial Blood Oxygen Content 13.4 Vol % (12.0-20.0) Arterial Blood Carboxyhemoglobin 0.0 % (0-4) Arterial Blood Methemoglobin 0.8 % (0-2) Blood Gas Hemoglobin 9.9 G/DL (12.0-16.0) Oxygen Delivery Device Non-Rebreathing Mask Blood Gas Liter Flow 15 L/M Blood Gas Inspired Oxygen 100 % Imaging Last Impressions Chest X-Ray 01/11/17 0600 Signed Impressions: Service Date/Time: Wednesday, January 11, 2017 06:23 - CONCLUSION: Persistent areas of consolidation in the left lung. Barry Edward MD Head CT 01/07/17 0000 Signed Impressions: Service Date/Time: Saturday, January 07, 2017 09:43 - CONCLUSION: 1. Multiple evolving bilateral cerebral infarcts involving both anterior and posterior circulation territories, as above. Differential considerations include embolism or vasculitis. 2. No significant intercurrent hemorrhage, herniation, or hydrocephalus. German Bloom MD Neck CTA 01/06/17 0000 Signed Impressions: Service Date/Time: Friday, January 06, 2017 19:10 - CONCLUSION: Normal CTA carotids. David Jordan MD Brain MRI 01/06/17 0000 Signed Impressions: Service Date/Time: Friday, January 06, 2017 18:49 - CONCLUSION: 1. Acute nonhemorrhagic infarction in the right MCA [employer]UCATION watershed zone. 2. Subacute infarctions with possible subacute blood products in the left occipital and left suprasylvian parietal region. 3. Subacute infarction in the right posterior insula without evidence of blood products. David Jordan MD Objective Remarks GENERAL: 73 yo female, critically ill currently lying in bed in severe distress moaning SKIN: Warm and dry. Ecchymosis bilateral upper extremities HEAD: Atraumatic. Normocephalic. EYES: Pupils equal and round ENT: No nasal bleeding or discharge. pNRB in place NECK: Trachea midline. No JVD. CARDIOVASCULAR: Tachycardic, RR. S1, S2. No S4. With 2/6 murmur left lower sternal border. RESPIRATORY: Coarse crackles appreciated throughout bilateral lung doherty GASTROINTESTINAL: Abdomen soft, non-tender, nondistended. Hypoactive bowel sounds are appreciated MUSCULOSKELETAL: Extremities without peripheral edema. No obvious deformities. NEUROLOGICAL: Arousal but lethargic, intermittently moaning. Right hemiparesis Procedures none A/P Assessment and Plan Neuro/Psych: Acute right MCA/DIRECTOR OF MEDICAL EDUCATION CVA Subacute left occipital/parietal and posterior sylvian fissure CVA MS - 2014 Expressive aphasia Dysarthria MRI brain revealed acute right MCA/DIRECTOR OF MEDICAL EDUCATION CVA. Subacute left occipital/parietal CVA with possible hemorrhagic conversion with left posterior sylvian fissure CVA CTA neck revealed no signs of carotid stenosis 2-D echocardiogram revealed no embolic source Followed by Dr. Fountain/neurology. Currently on aspirin and warfarin Mirtazapine 15 mg daily depression Teriflunomide 14 mg daily for MS Written for alprazolam 0.25 mg every 6 hours as needed anxiety. Currently respiratory wyatt too unstable CT brain at the present time After discussion with patient's and daughter, decision was made to transition to comfort measures CV: Hypertension Severe TR/moderate MR Grade 1 diastolic dysfunction Severe pulmonary hypertension Dyslipidemia 2-D echocardiogram revealed grade 1 diastolic dysfunction. Severe TR. Moderate MR. Right atrial dilatation. Evaluation Dr. Ford/cardiology. Currently on amlodipine 5 mill grams daily, aspirin. We'll place on low-dose IV beta radha nothing by mouth\\ Resp: Acute respiratory failure Small left pleural effusion Carlyn tobaccoism Patient currently on nonrebreather mask saturations between currently 87-90% Left pleural effusions small by ultrasound. PE very unlikely. Hemodynamically stable. Negative DVT on bilateral lower extremity ultrasound 12/29/16 Titrate oxygen maintain saturations greater than equal to 90% Incentive spirometry while awake. Bronchodilator therapy with albuterol scheduled every 6 hours Strict aspiration precautions Mentation/aspiration likely barrier to recovery. /son and daughter saw states she did not want to be intubated. We' ll abide/respect her wishes at the present time Dr. Murcia pulmonology following GI: Dysphagia Elevated transaminases Pantoprazole for GI prophylaxis Jessi-Colace ordered for bowel regimen. Unable to take currently Currently on PPN at 42 cc hourly with lipids daily-DC while transitioning to comfort measures Liver ultrasound revealed no acute findings LFT/ammonia level pending currently along with coags : Urinary incontinence Evaluate Dr. Elvis Beckman for his recommendations On B and O suppository as needed Endo: Hyperglycemia Sliding-scale insulin with Accu-Cheks to maintain euglycemia before meals/at bedtime Insulin detemir 5 units twice a day Renal: Monitor urine output Accurate I's and O's A.m. creatinine pending Heme: History of bilateral DVT/PE Followed by Dr. Yarbrough/hematology Currently on heparin drip on warfarin 3 mg daily. Follow CBC/inr daily ID: Currently on levofloxacin/Flagyl for possible aspiration pneumonia Pancultured including blood sputum and urine FEN: Replace electrolytes as clinically indicated MSK: PT/OT evaluate and treat Access - Utilize peripheral IV. Central line if indicated Prophylaxis - GI - pantoprazole - DVT - SCD/heparin drip Level 2 After discussion with patient's and daughter, decision was made to transition to comfort measures. As needed Ativan and morphine ordered. Discontinue all medications and PPN except comfort medications. Will notify palliative care as well Mare Reddy MD Jan 14, 2017 08:56
[2017-01-14] MEDS: SODIUM CHLORIDE 0.9% FLUSH 5 ML FLUSH IV FLUSH SCH (09:37)
[2017-01-14] MEDS ORDERED: MORPHINE SULFATE 2 MG/ML INJ IV ONE (09:45)
--- NOTE | 2017-01-14 18:40 | DEATH SUM ---
Summary Demographics Date Pronounced : Jan 14, 2017 Time Of : 0956 Pronounced By: Dr Reddy Preliminary Cause of : Cardiac arrest Mare Reddy MD Jan 14, 2017 18:40
--- NOTE | 2017-01-14 18:43 | HHI.DS ---
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 stroke ICD Code: I63.532 - Cerebral infarction due to unspecified occlusion or stenosis of left posterior cerebral artery Diagnosis: Principal (3) Encephalopathy acute ICD Code: G93.40 - Encephalopathy, unspecified Diagnosis: Principal (4) CVA (cerebral vascular accident) ICD Code: I63.9 - Cerebral infarction, unspecified Diagnosis: Principal (5) Pneumonia ICD Code: J18.9 - Pneumonia, unspecified organism Diagnosis: Principal (6) UTI (urinary tract infection) ICD Code: N39.0 - Urinary tract infection, site not specified Diagnosis: Principal (7) Elevated troponin ICD Code: R74.8 - Abnormal levels of other serum enzymes Diagnosis: Principal (8) Acute hypernatremia ICD Code: E87.0 - Hyperosmolality and hypernatremia Diagnosis: Principal (9) Hypokalemia ICD Code: E87.6 - Hypokalemia Diagnosis: Principal (10) Anemia ICD Code: D64.9 - Anemia, unspecified Diagnosis: Secondary (11) Urinary retention ICD Code: R33.9 - Retention of urine, unspecified Diagnosis: Secondary (12) History of DVT (deep vein thrombosis) ICD Code: Z86.718 - Personal history of other venous thrombosis and embolism Diagnosis: Secondary (13) Hx pulmonary embolism ICD Code: Z86.711 - Personal history of pulmonary embolism Diagnosis: Secondary (14) Expressive aphasia ICD Code: R47.01 - Aphasia Diagnosis: Secondary (15) Dysphagia ICD Code: R13.10 - Dysphagia, unspecified Diagnosis: Secondary (16) Multiple sclerosis ICD Code: G35 - Multiple sclerosis Diagnosis: Secondary (17) HTN (hypertension) ICD Code: I10 - Essential (primary) hypertension Diagnosis: Secondary (18) Hyperglycemia ICD Code: R73.9 - Hyperglycemia, unspecified Diagnosis: Secondary (19) Hematuria ICD Code: R31.9 - Hematuria, unspecified Diagnosis: Secondary Procedures none Brief History This is a 76-year-old female with past medical history of multiple sclerosis, hyperlipidemia, DVT and PE on Xarelto, CVA. The patient has expressive aphasia as a result of her CVA so most of the history is obtained from medical records and with help of the family which is at bedside. As per medical records the patient has had multiple sclerosis diagnosed in 2013 and has been followed by Dr. Kaitlin Fountain, history of bilateral lower extremity DVT and PE in September 2016 with workup at the floor the hospital in normal speech and placed on Xarelto long- term. Patient is very lethargic and the history is obtained from previous medical records. The patient was admitted for the hospital in [place] on 12/21/16 with sudden onset of slurred speech and right-sided facial droop. A CT of the head was unremarkable, the patient was not given TPA because she was outside of the window. The patient was evaluated by neurology, Dr. Philip Fountain. MRI was obtained and it showed a 3 cm triangular area of abnormal signal and restricted flow involving the left temporal lobe, sylvian fissure into the basal ganglia consistent with acute infarct of the left MCA distribution. Also noted were multiple punctate foci of restricted flow within the left parietal, left occipital cortex and left frontal lobe suggesting a small acute infarcts. Additional studies at the time included a CT of the head and neck and TTE which were negative for embolic source. There is also reported one episode of lethargy with repeat CT brain showing evolution of the left MCA territory ischemia/infarction without hemorrhagic conversion. The patient was then started on physical and occupational therapy as well as speech therapy and was noted to have right hemiparesis and expressive aphasia with dysarthria and dysphagia. As per RN the patient had a stroke alert while in rehabilitation at the time was evaluated by neurologist and an MRI was obtained which showed bilateral acute to subacute infarcts with the largest being in the left posterior parietal/occipital region. No evidence of hemorrhage. The patient was noted yesterday to be more lethargic when a couple days back as per reported when necessary she was more interactive with staff. Family states that the patient was very confused as she could not say her name. As per medical staff at [facility] the patient had been moaning and groaning all night. An abdominal x-ray was obtained secondary to abdominal pain and it showed barium identified within a diverticuli which could be secondary to diverticulitis. As a result of the patient being lethargic head CT was ordered which showed a new acute to subacute right posterior parietal/ occipital mild convexity infarct, reported new since 01/03/17. It showed evolving infarct involving the medial left occipital mild complexities, left mid parietal high convexities and mid right parietal high convexities. No hemorrhage, hydrocephalus or herniation were observed. CBC/BMP: 01/14/17 0600 01/14/17 0600 Significant Findings Laboratory Tests Test 01/11/17 19:50 01/11/17 22:50 01/12/17 05:12 01/13/17 07:12 Prothrombin Time 31.7 SEC (9.8-11.6) 24.9 SEC (9.8-11.6) 13.8 SEC (9.8-11.6) Activated Partial Thromboplast Time 46.1 SEC (24.3-30.1) 51.0 SEC (24.3-30.1) Blood Urea Nitrogen 27 MG/DL (7-18) 24 MG/DL (7-18) Creatinine 0.37 MG/DL (0.50-1.00) 0.27 MG/DL (0.50-1.00) Random Glucose 134 MG/DL (74-106) 129 MG/DL (74-106) Total Protein 4.7 GM/DL (6.4-8.2) 4.7 GM/DL (6.4-8.2) Albumin 2.7 GM/DL (3.4-5.0) 2.7 GM/DL (3.4-5.0) Calcium Level 8.2 MG/DL (8.5-10.1) 8.3 MG/DL (8.5-10.1) Phosphorus Level 1.8 MG/DL (2.5-4.9) 2.4 MG/DL (2.5-4.9) Alkaline Phosphatase 120 U/L (45-117) 118 U/L (45-117) Aspartate Amino Transf (AST/SGOT) 59 U/L (15-37) 53 U/L (15-37) Alanine Aminotransferase (ALT/SGPT) 74 U/L (10-53) 68 U/L (10-53) Total Bilirubin 1.3 MG/DL (0.2-1.0) 1.1 MG/DL (0.2-1.0) Sodium Level 147 MEQ/L (136-145) Chloride Level 117 MEQ/L (98-107) 114 MEQ/L (98-107) Triglycerides Level 191 MG/DL (42-150) White Blood Count 14.7 TH/MM3 (4.0-11.0) 18.6 TH/MM3 (4.0-11.0) Red Blood Count 3.05 MIL/MM3 (4.00-5.30) 3.25 MIL/MM3 (4.00-5.30) Hemoglobin 9.3 GM/DL (11.6-15.3) 9.9 GM/DL (11.6-15.3) Hematocrit 28.1 % (35.0-46.0) 30.1 % (35.0-46.0) Mean Platelet Volume 11.3 FL (7.0-11.0) 11.9 FL (7.0-11.0) Neutrophils (%) (Auto) 92.1 % (16.0-70.0) 92.3 % (16.0-70.0) Lymphocytes (%) (Auto) 2.4 % (9.0-44.0) 3.7 % (9.0-44.0) Neutrophils # (Auto) 13.6 TH/MM3 (1.8-7.7) 17.1 TH/MM3 (1.8-7.7) Lymphocytes # (Auto) 0.4 TH/MM3 (1.0-4.8) 0.7 TH/MM3 (1.0-4.8) Test 01/13/17 09:31 01/13/17 13:05 01/14/17 06:00 Arterial Blood pH 7.53 (7.380-7.420) Arterial Blood Partial Pressure CO2 26 mmHg (38-42) Blood Gas Hemoglobin 9.9 G/DL (12.0-16.0) White Blood Count 18.5 TH/MM3 (4.0-11.0) 22.0 TH/MM3 (4.0-11.0) Red Blood Count 3.23 MIL/MM3 (4.00-5.30) 2.93 MIL/MM3 (4.00-5.30) Hemoglobin 9.7 GM/DL (11.6-15.3) 9.0 GM/DL (11.6-15.3) Hematocrit 29.4 % (35.0-46.0) 26.5 % (35.0-46.0) Platelet Count 107 TH/MM3 (150-450) 63 TH/MM3 (150-450) Neutrophils (%) (Auto) 90.4 % (16.0-70.0) 91.3 % (16.0-70.0) Lymphocytes (%) (Auto) 4.5 % (9.0-44.0) 3.6 % (9.0-44.0) Neutrophils # (Auto) 16.7 TH/MM3 (1.8-7.7) 20.1 TH/MM3 (1.8-7.7) Lymphocytes # (Auto) 0.8 TH/MM3 (1.0-4.8) 0.8 TH/MM3 (1.0-4.8) Blood Urea Nitrogen 21 MG/DL (7-18) 26 MG/DL (7-18) Creatinine 0.30 MG/DL (0.50-1.00) 0.43 MG/DL (0.50-1.00) Calcium Level 7.7 MG/DL (8.5-10.1) 7.8 MG/DL (8.5-10.1) Chloride Level 113 MEQ/L (98-107) 112 MEQ/L (98-107) Ammonia 41 MCMOL/L (11-32) Troponin I 0.25 NG/ML (0.02-0.05) B-Type Natriuretic Peptide 1166 PG/ML (0-100) Mean Platelet Volume 11.6 FL (7.0-11.0) Monocytes # (Auto) 1.0 TH/MM3 (0-0.9) Neutrophils % (Manual) 76 % (16-70) Band Neutrophils % 8 % (0-6) Lymphocytes % 6 % (9-44) Neutrophils # (Manual) 18.9 TH/MM3 (1.8-7.7) Myelocytes 2 % (0-0) Toxic Granulation 1+ (NORMAL) Platelet Estimate LOW (NORMAL) Platelet Morphology Comment ENLARGED (NORMAL) Ovalocytes 1+ (NORMAL) Keratocytes OCC (NORMAL) Prothrombin Time 13.9 SEC (9.8-11.6) Random Glucose 137 MG/DL (74-106) Total Protein 4.6 GM/DL (6.4-8.2) Albumin 2.3 GM/DL (3.4-5.0) Aspartate Amino Transf (AST/SGOT) 38 U/L (15-37) Total Bilirubin 2.3 MG/DL (0.2-1.0) Carbon Dioxide Level 19.0 MEQ/L (21.0-32.0) Imaging Last Impressions Chest X-Ray 01/11/17 0600 Signed Impressions: Service Date/Time: Wednesday, January 11, 2017 06:23 - CONCLUSION: Persistent areas of consolidation in the left lung. Barry Edward MD Head CT 01/07/17 0000 Signed Impressions: Service Date/Time: Saturday, January 07, 2017 09:43 - CONCLUSION: 1. Multiple evolving bilateral cerebral infarcts involving both anterior and posterior circulation territories, as above. Differential considerations include embolism or vasculitis. 2. No significant intercurrent hemorrhage, herniation, or hydrocephalus. German Bloom MD Neck CTA 01/06/17 0000 Signed Impressions: Service Date/Time: Friday, January 06, 2017 19:10 - CONCLUSION: Normal CTA carotids. David Jordan MD Brain MRI 01/06/17 0000 Signed Impressions: Service Date/Time: Friday, January 06, 2017 18:49 - CONCLUSION: 1. Acute nonhemorrhagic infarction in the right MCA COMPUTER SYSTEM TECHNICIAN watershed zone. 2. Subacute infarctions with possible subacute blood products in the left occipital and left suprasylvian parietal region. 3. Subacute infarction in the right posterior insula without evidence of blood products. David Jordan MD Hospital Course This is a 76-year-old female. Date of admission 01/05/2017. Past medical history includes history of prior CVA with expressive aphasia, MS diagnosed 2013 on teriflunomide and followed by Dr. 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 Originally, this patient was admitted to [facility] on 12/21/16 with sudden onset of slurred speech and right-sided facial droop. CT brain was unremarkable, the patient was not given TPA because she was outside of the window. The patient was evaluated by neurology, Dr. Philip Fountain. MRI brain revealed a 3 cm triangular area of abnormal signal and restricted flow involving the left temporal lobe, sylvian fissure into the basal ganglia consistent with acute infarct of the left MCA distribution. She was also noted were multiple punctate foci of restricted flow within the left parietal, left occipital cortex and left frontal lobe suggesting a small acute infarcts. Additional studies at the time included a CT of the head and neck and TTE which were negative for embolic source. There is also reported one episode of lethargy with repeat CT brain showing evolution of the left MCA territory ischemia/infarction without hemorrhagic conversion. Per prior records , patient has noted right hemiparesis, expressive aphasia , dysarthria and dysphagia. On 01/04, a stroke alert was called due to altered mental status. MRI brain was obtained which showed bilateral acute to subacute infarcts with the largest being in the left posterior parietal/occipital region. No evidence of hemorrhage. On 01/05 CT brain revealed a new acute to subacute right posterior parietal/occipital mild convexity infarct, reported new since 01/03/17. It showed evolving infarct involving the medial left occipital mild complexities, left mid parietal high convexities and mid right parietal high convexities. No hemorrhage, hydrocephalus or herniation were observed. Her symptoms also involve cortical blindness verified by Dr. De Anda/ophthalmology Patient is been seen by multiple consults: Neurology. MRI brain revealed acute right MCA/COMPUTER SYSTEM TECHNICIAN distribution CVA along with Subacute strokes involving left occipital left frontal region with possible hemorrhagic conversion along with subacute left posterior sylvian CVA. Patient is currently on aspirin 81 mg daily and resume home medication of Terflunomide 40 mg daily for underlying MS. CTA neck revealed no carotid stenosis. 2-D echocardiogram revealed no embolic source. Patient was evaluated by Dr. Ford from cardiology standpoint. Echocardiogram revealed severe TR/moderate MR. Dilated right atrium. Severe pulmonary hypertension PAP 70 mmHg. Grade 1 diastolic dysfunction. Recommended medical management including aspirin, beta radha, TG inhibitor and statin Evaluated by Dr. Leal for retaining urine. Recommended maintain Beckman. Follow-up outpatient 30 days after discharge. Today, patient presented to the [facility] ICU secondary to acute onset of hypoxia. Patient currently on a nonrebreather saturations 95-96%. Discussion with and son Abimael. Chest x-ray showed stable left lower lobe infiltrate and possible small left pleural effusion. Likely not drinking underlying hypoxia. ABG reveals respiratory alkalosis. Discussion with regarding intubation. There was involved including daughter and son Abimael at bedside. Plan currently is for DNR status. Transition to hospice care if patient continues.. Patient is aware he can change his mind at any point. did nod head affirmatively that she did not want to be intubated and she wanted to be kept comfortable at this time and she was "ready to go". SUBJ 01/14: Patient is in acute distress, hypoxic on NRB, moaning. Daughter is at bedside and requests comfort measures only. I confirmed this over the phone with patient's Mr. Curiel. Comfort medications ordered. Patient's respiratory distress decreased after morphine was given. I placed her on as needed Ativan and morphine. Patient developed asystole and comfortably at 0956 on 01/14/17 Mare Reddy MD Jan 14, 2017 18:43
== END 2017-01-14 09:56 | disposition expired | DRG 64 ==
LOC: N05A 19:58 → HIME 01-13 09:50
PROVIDERS: ADMIT Internal Medicine Critical Care Medicine; ATTEND Internal Medicine Critical Care Medicine
DX: I63.532 Cerebral infarction due to unspecified occlusion or stenosis of left posterior cerebral artery (principal); G93.40 Encephalopathy, unspecified; J69.0 Pneumonitis due to inhalation of food and vomit; J96.01 Acute respiratory failure with hypoxia; E87.0 Hyperosmolality and hypernatremia; N39.0 Urinary tract infection, site not specified; D68.32 Hemorrhagic disorder due to extrinsic circulating anticoagulants; I69.351 Hemiplegia and hemiparesis following cerebral infarction affecting right dominant side; B96.20 Unspecified Escherichia coli [E. coli] as the cause of diseases classified elsewhere; T45.525A Adverse effect of antithrombotic drugs, initial encounter; Y92.238 Other place in hospital as the place of occurrence of the external cause; R31.0 Gross hematuria; H47.619 Cortical blindness, unspecified side of brain; Z86.711 Personal history of pulmonary embolism; Z86.718 Personal history of other venous thrombosis and embolism; Z79.02 Long term (current) use of antithrombotics/antiplatelets; Z79.82 Long term (current) use of aspirin; G35 Multiple sclerosis; I10 Essential (primary) hypertension; R73.9 Hyperglycemia, unspecified; R74.8 Abnormal levels of other serum enzymes; E78.5 Hyperlipidemia, unspecified; E87.6 Hypokalemia; D64.9 Anemia, unspecified; D63.8 Anemia in other chronic diseases classified elsewhere; R33.9 Retention of urine, unspecified; I27.20 Pulmonary hypertension, unspecified; Z66 Do not resuscitate; Z51.5 Encounter for palliative care; R19.5 Other fecal abnormalities; I69.320 Aphasia following cerebral infarction; I69.322 Dysarthria following cerebral infarction; I69.391 Dysphagia following cerebral infarction; R32 Unspecified urinary incontinence; I46.9 Cardiac arrest, cause unspecified; N20.0 Calculus of kidney; Z80.0 Family history of malignant neoplasm of digestive organs; Z82.0 Family history of epilepsy and other diseases of the nervous system; Z87.891 Personal history of nicotine dependence
CPT/HCPCS: 36600; 70450; 70498; 70551; 71010; 76700; 76937; 80048; 80053; 80061; 82140; 82150; 82272; 82550; 82607; 82728; 82747; 82805; 82948; 83036; 83540; 83550; 83605; 83690; 83735; 83880; 84100; 84443; 84478; 84484; 85007; 85025; 85027; 85610; 85652; 85730; 86021; 86038; 86140; 87040; 93306; 94640; 94664; C9113; J1450; J1644; J1815; J1956; J2270; J2930; J3480; J7030; Q9967